=== PATIENT | male | born 1940 | race Caucasian/White ===

== ENCOUNTER 2019-11-06 21:38 | Observation (INO) | payer MEDICARE ==
[2019-11-06 21:51] LABS: HEMATOCRIT 35.7 % (37.9-51.0); HEMOGLOBIN 11.9 g/dL (13.5-17.0); MEAN CORPUSCULAR HEMOGLOBIN 29.9 pg (27.0-33.4); MEAN CORPUSCULAR HGB CONC 33.3 g/dL (32.0-36.0); MEAN CORPUSCULAR VOLUME 90 fl (80-97); PLATELET COUNT 117 10^3/uL (150-450); RED BLOOD COUNT 3.98 10^6/uL (4.35-5.55); RED CELL DISTRIBUTION WIDTH 13.8 % (11.5-14.0); WHITE BLOOD COUNT 10.5 10^3/uL (4.0-10.5)
[2019-11-06 21:53] LABS: INTERNATIONAL RATION (INR) 1.07; PROTHROMBIN TIME 13.9 SEC (11.4-15.4)
[2019-11-06 21:54] LABS: PARTIAL THROMBOPLASTIN TIME 27.8 SEC (23.5-35.8)
[2019-11-06 22:06] LABS: ALBUMIN 4.2 g/dL (3.5-5.0); ALKALINE PHOSPHATASE 67 U/L (38-126); ANION GAP 13 (5-19); ASPARTATE AMINO TRANSFERASE 25 U/L (17-59); BILIRUBIN,DIRECT 0.2 mg/dL (0.0-0.4); BILIRUBIN,TOTAL 0.6 mg/dL (0.2-1.3); BLOOD UREA NITROGEN 18 mg/dL (7-20); CALCIUM 9.3 mg/dL (8.4-10.2); CARBON DIOXIDE 21 mmol/L (22-30); CHLORIDE 101 mmol/L (98-107); CREATINE KINASE 254 U/L (55-170); GLUCOSE 194 mg/dL (75-110); POTASSIUM 4.4 mmol/L (3.6-5.0); TOTAL PROTEIN 7.2 g/dL (6.3-8.2)
--- NOTE | 2019-11-06 22:07 | RADIOLOGY REPORT (SQ) ---
EXAM DESCRIPTION: CT HEAD WITHOUT IV CONTRAST COMPLETED DATE/TME: 11/06/2019 21:40 CLINICAL HISTORY: 79 years, Male, s/s stroke EXAM DESCRIPTION: CLINICAL HISTORY: s/s stroke COMPARISON: None Available TECHNIQUE: Contiguous axial CT images of the head were obtained. Coronal and sagittal reconstructions were created from the axial data. This exam was performed according to our departmental dose-optimization program, which includes automated exposure control, adjustment of the mA and/or kV according to patient size and/or use of iterative reconstruction technique. FINDINGS: Motion limits detail. There is no evidence of acute mass, mass effect, midline shift or hemorrhage. The ventricles and extra-axial CSF spaces are unremarkable. The brain parenchyma appears normal for the patient's age. No acute abnormalities of the bones is seen. IMPRESSION: No acute intracranial abnormality.
[2019-11-06 22:12] LABS: ABSOLUTE MONOCYTES # (MANUAL) 0.5 10^3/uL (0.1-1.4); BASOPHILS % (MANUAL) 0 % (0-2); EOSINOPHILS % (MANUAL) 0 % (0-6); LYMPHOCYTES % (MANUAL) 0 % (13-45); MONOCYTES % (MANUAL) 5 % (3-13); PLATELET COMMENT DECREASED; RBC MORPHOLOGY COMMENT NORMO-CYTIC/CHROMIC; SEGMENTED NEUTROPHILS % (MAN) 95 % (42-78); TOTAL CELLS COUNTED 100
[2019-11-06 22:19] LABS: CREATINE KINASE MB 4.14 ng/mL (<4.55); TROPONIN I < 0.012 ng/mL
--- NOTE | 2019-11-06 22:26 | RADIOLOGY REPORT (SQ) ---
EXAM DESCRIPTION: XR CHEST 1 VIEW COMPLETED DATE/TME: 11/06/2019 21:40 CLINICAL HISTORY: 79 years, Male, s/s stroke COMPARISON: None. NUMBER OF VIEWS: 1 TECHNIQUE: Portable chest LIMITATIONS: None. FINDINGS: Heart size is normal. Atheromatous change thoracic aorta. Osteopenia. Lungs clear. No pneumothorax IMPRESSION: No acute cardiopulmonary process copyright 2010 [employer]- All Rights Reserved
--- NOTE | 2019-11-06 22:52 | ER Document Report ---
ED General - General Stated Complaint: POSSIBLE STROKE Time Seen by Provider: 11/06/19 22:45 Primary Care Provider: BILLY SALVADOR MD [Primary Care Provider] - Follow up as needed - HPI Notes: Mr. Joy is a 79-year-old male presenting via EMS seen as a code stroke alert. Last known well time was 1630 hrs. Patient has a history of moderate dementia and has had a previous episode of urinary tract infection. Family members note that they last saw him at around 630 and he seem to be at his usual baseline then. EMS was called just prior to arrival and it was reported that patient was not speaking and seemed to have generalized weakness. No focal weakness was observed. Patient was transported here became conversant during transport. They documented a blood sugar of 145 by fingerstick prior to arrival here. The patient is quiet and I am not getting a lot of history from him here although he is oriented to place person and day. His responses are very slow. Family members have arrived and tell me that this man received a flu immunization this season. They indicate that at baseline he walks independently and cares for himself for the most part. - Related Data Allergies/Adverse Reactions: No Known Allergies Allergy (Verified 11/06/19 22:56) Past Medical History - General Information source: Patient, Relative, Emergency Med Personnel - Social History Smoking Status: Never Smoker Frequency of alcohol use: None Drug Abuse: None Lives with: Family Family History: Reviewed & Not Pertinent - Past Medical History Cardiac Medical History: Denies: Hx Heart Attack, Hx Hypertension Pulmonary Medical History: Denies: Hx Asthma Neurological Medical History: Denies: Hx Cerebrovascular Accident, Hx Seizures GI Medical History: Denies: Hx Hepatitis, Hx Hiatal Hernia, Hx Ulcer Psychiatric Medical History: Reports: Hx Dementia Infectious Medical History: Denies: Hx Hepatitis Past Surgical History: Denies: Hx Open Heart Surgery, Hx Pacemaker Review of Systems - Review of Systems Notes: Constitutional: Negative for fever. HENT: Negative for sore throat. Eyes: Negative for visual changes. Cardiovascular: Negative for chest pain. Respiratory: Negative for shortness of breath. Gastrointestinal: Negative for abdominal pain, vomiting or diarrhea. Genitourinary: Negative for dysuria. Musculoskeletal: Negative for back pain. Skin: Negative for rash. Neurological: As per HPI. 10 point ROS negative except as marked above and in HPI. Physical Exam - Vital signs Vitals: Temp Pulse Resp BP Pulse Ox 102.3 F H 92 16 130/69 H 98 11/06/19 21:51 11/06/19 21:51 11/06/19 21:51 11/06/19 21:51 11/06/19 21:51 - Notes Notes: GENERAL: Well-developed well-nourished elderly male with generalized weakness and sleepy with slow responses. SKIN: Good turgor no rashes. HEAD: Normocephalic atraumatic. EYES: PERRLA. EOMI. Conjunctivae and sclerae clear. EARS: CANALS AND TMS CLEAR. NOSE: CLEAR. MOUTH: Moist mucosa. Good dentition. No stridor or edema. No drooling. NECK: Supple. No masses or thyromegaly. No adenopathy. Carotids 2+ without bruits. No JVD. BACK: Symmetrical without tenderness. CHEST: Respirations unlabored. Breath sounds clear and symmetrical. HEART: Regular rhythm. No murmur gallop or rub. ABDOMEN: Soft nontender without masses, organomegaly or rebound. Bowel sounds normally active. No bruits. GENITALIA: Deferred. EXTREMITIES: No edema. No calf tenderness. Cap refill less than 1.5 seconds. Dorsalis pedis and posterior tibial pulses 3+ and symmetrical. NEUROLOGICAL: GCS 15 but slow to respond. Fluent speech. Cranial nerves II through XII intact. Sensation is grossly intact. He performs finger-nose testing without difficulty. No drift on upper extremity motor testing. He has some difficulty keeping both legs up but is able to raise each independently. There is no lateralized difference in muscular strength in lower extremities. PSYCHIATRIC: Appropriate affect. Course - Re-evaluation Re-evalutation: 11/06/19 23:16 On initial evaluation this man did not have any lateralization to suggest an acute stroke. He has been found to have fever and elevation of his lactate level although source of infection is unclear. He appears to be septic. His blood pressure is good at this point. I drawn blood cultures. We are giving him some fluids ongoing empirically cover him with Zosyn and vancomycin. I requested a CT abdomen/pelvis with contrast to try to identify source of sepsis. After we reviewed the CT I will speak with hospitalist about admission. - Vital Signs Vital signs: Temp Pulse Resp BP Pulse Ox 98.1 F 92 17 129/67 H 99 11/07/19 04:21 11/06/19 21:51 11/07/19 04:01 11/07/19 04:01 11/07/19 04:01 - Laboratory Result Diagrams: 11/06/19 23:10 11/06/19 23:10 Laboratory results interpreted by me: 11/06/19 11/06/19 11/06/19 21:40 21:40 22:04 WBC RBC 3.98 L Hgb 11.9 L Hct 35.7 L Plt Count 117 L Seg Neuts % (Manual) 95 H Lymphocytes % (Manual) 0 L Abs Neuts (Manual) 10.0 H Abs Lymphs (Manual) 0.0 L Sodium 134.5 L Carbon Dioxide 21 L Glucose 194 H POC Glucose 186 H Lactic Acid Creatine Kinase 254 H Urine Protein Urine Glucose (UA) Urine Blood 11/06/19 11/06/19 11/06/19 22:17 22:44 23:10 WBC 11.3 H RBC 3.91 L Hgb 11.7 L Hct 34.8 L Plt Count 111 L Seg Neuts % (Manual) 85 H Lymphocytes % (Manual) 5 L Abs Neuts (Manual) 9.6 H Abs Lymphs (Manual) Sodium Carbon Dioxide Glucose POC Glucose Lactic Acid 3.3 H Creatine Kinase Urine Protein 30 H Urine Glucose (UA) 50 H Urine Blood MODERATE H 11/06/19 23:10 WBC RBC Hgb Hct Plt Count Seg Neuts % (Manual) Lymphocytes % (Manual) Abs Neuts (Manual) Abs Lymphs (Manual) Sodium 134.8 L Carbon Dioxide Glucose 124 H POC Glucose Lactic Acid Creatine Kinase Urine Protein Urine Glucose (UA) Urine Blood Discharge - Discharge Clinical Impression: AMS Fever Qualifiers: Fever type: unspecified Qualified Code(s): R50.9 - Fever, unspecified Sepsis Qualifiers: Sepsis type: sepsis due to unspecified organism Sepsis acute organ dysfunction status: with acute organ dysfunction Severe sepsis acute organ dysfunction type: encephalopathy Severe sepsis shock status: without septic shock Qualified Code(s): A41.9 - Sepsis, unspecified organism; R65.20 - Severe sepsis without septic shock; G93.40 - Encephalopathy, unspecified Condition: Fair Disposition: ADMITTED INPATIENT Admitting Provider: Demetrice (Hospitalist) Unit Admitted: Medical Floor Referrals: BILLY SALVADOR MD [Primary Care Provider] - Follow up as needed
[2019-11-06] MEDS ORDERED: ACETAMINOPHEN 325 MG TABLET PO ONE (22:54)
[2019-11-06 22:59] LABS: APPEARANCE,URINE SLIGHTLY-CLOUDY; BILIRUBIN,URINE NEGATIVE (NEGATIVE); COLOR,URINE YELLOW; GLUCOSE, URINE 50 mg/dL (NEGATIVE); KETONES,URINE NEGATIVE (NEGATIVE); LEUKOCYTE ESTERASE,URINE NEGATIVE (NEGATIVE); NITRITE,URINE NEGATIVE (NEGATIVE); PROTEIN,URINE 30 mg/dL (NEGATIVE); URINE SPECIFIC GRAVITY 1.017; UROBILINOGEN,URINE NEGATIVE mg/dL (<2.0)
[2019-11-06] MEDS ORDERED: PIPERACILLIN/TAZOBACTAM 3.375 GM VIAL IV ONE (23:09)
[2019-11-06] MEDS ORDERED: VANCOMYCIN HCL INJ 1000 MG VIAL IV ONE (23:09)
[2019-11-06] MEDS ORDERED: NORMAL SALINE 1000 ML 1,000 ML IV ONE (23:15)
[2019-11-06 23:20] LABS: A TYPE INFLUENZA AG NEGATIVE (NEGATIVE); B INFLUENZA AG NEGATIVE (NEGATIVE)
[2019-11-06 23:24] LABS: HEMATOCRIT 34.8 % (37.9-51.0); HEMOGLOBIN 11.7 g/dL (13.5-17.0); MEAN CORPUSCULAR HGB CONC 33.8 g/dL (32.0-36.0); MEAN CORPUSCULAR VOLUME 89 fl (80-97); PLATELET COUNT 111 10^3/uL (150-450); RED BLOOD COUNT 3.91 10^6/uL (4.35-5.55); RED CELL DISTRIBUTION WIDTH 13.9 % (11.5-14.0); WHITE BLOOD COUNT 11.3 10^3/uL (4.0-10.5)
[2019-11-06 23:42] LABS: ALKALINE PHOSPHATASE 70 U/L (38-126); ANION GAP 7 (5-19); ASPARTATE AMINO TRANSFERASE 33 U/L (17-59); BILIRUBIN,TOTAL 0.5 mg/dL (0.2-1.3); BLOOD UREA NITROGEN 18 mg/dL (7-20); CARBON DIOXIDE 26 mmol/L (22-30); CHLORIDE 102 mmol/L (98-107); GLUCOSE 124 mg/dL (75-110); POTASSIUM 4.2 mmol/L (3.6-5.0); TOTAL PROTEIN 6.9 g/dL (6.3-8.2)
[2019-11-06 23:44] LABS: ABSOLUTE LYMPHOCYTES# (MANUAL) 0.6 10^3/uL (0.5-4.7); ABSOLUTE MONOCYTES # (MANUAL) 1.1 10^3/uL (0.1-1.4); BASOPHILS % (MANUAL) 0 % (0-2); EOSINOPHILS % (MANUAL) 0 % (0-6); LYMPHOCYTES % (MANUAL) 5 % (13-45); MONOCYTES % (MANUAL) 10 % (3-13); SEGMENTED NEUTROPHILS % (MAN) 85 % (42-78); TOTAL CELLS COUNTED 100
[2019-11-06 23:45] LABS: PLATELET COMMENT DECREASED; RBC MORPHOLOGY COMMENT NORMO-CYTIC/CHROMIC
--- NOTE | 2019-11-07 02:31 | RADIOLOGY REPORT (SQ) ---
CLINICAL HISTORY: sepsis source undetermined. CREAT 0.73 COMPARISON: None. TECHNIQUE: CT ABDOMEN PELVIS WITH IV CONTRAST on 11/06/2019 11:08 PM [facility] This exam was performed according to our departmental dose-optimization program, which includes automated exposure control, adjustment of the mA and/or kV according to patient size and/or use of iterative reconstruction technique. FINDINGS: There is bibasilar atelectasis. Abdomen: The liver is normal in appearance. There is no biliary dilatation. Gallbladder is normal in appearance. The pancreas and spleen are normal in appearance. Adrenal glands are normal. There is a small lower pole left renal cyst. There are heavy calcifications of both renal arteries. Abdominal aorta is normal in course and caliber without aneurysm. There is no free air. There is no retroperitoneal adenopathy. Pelvis: There is severe diverticulosis of the distal colon. Urinary bladder is unremarkable. There is no free fluid. Appendix is normal. Skeleton: There are no acute osseous findings. No suspicious bony lesions. IMPRESSION: No definite acute inflammatory process.
[2019-11-07] MEDS ORDERED: MAGNESIUM HYDROXIDE SUSP 30 ML UDCUP PO PRN (05:33)
[2019-11-07] MEDS ORDERED: IBUPROFEN 800 MG TABLET PO PRN (05:33)
[2019-11-07] MEDS ORDERED: MAG HYDROX/AL HYDROX/SIMETH SUSP 30 ML UDCUP PO PRN (05:33)
[2019-11-07] MEDS ORDERED: MELATONIN 5 MG TABLET PO PRN (05:33)
[2019-11-07] MEDS ORDERED: LORAZEPAM INJ 2 MG/1 ML VIAL IV PRN (05:33)
[2019-11-07] MEDS ORDERED: ACETAMINOPHEN 325 MG TABLET PO PRN (05:33)
[2019-11-07] MEDS ORDERED: PIPERACILLIN/TAZOBACTAM 3.375 GM VIAL IV PRN (05:44)
[2019-11-07] MEDS ORDERED: PIPERACILLIN/TAZOBACTAM 3.375 GM VIAL IV SCH (05:45)
[2019-11-07] MEDS ORDERED: PIPERACILLIN/TAZOBACTAM 3.375 GM VIAL IV ONE (06:17)
[2019-11-07] MEDS: HEPARIN SOD (PORCINE) 5,000 UNIT/ML 1 ML VIAL SUBCUT SCH ×3 (06:28→21:55)
[2019-11-07] MEDS: PIPERACILLIN SODIUM/TAZOBACTAM 3.375 GM in NORMAL SALINE 100 ML IV SCH ×2 (06:28→13:30)
--- NOTE | 2019-11-07 07:46 | EKG REPORT ---
SEVERITY:- NORMAL ECG - SINUS RHYTHM : Confirmed by: Freeman Patterson MD 07-Nov-2019 07:45:39
[2019-11-07] MEDS: DEXTROSE 5%-LACTATED RINGERS 1,000 ML IV PRN ×2 (08:20→20:25)
[2019-11-07] MEDS: DOCUSATE SODIUM 100 MG CAPSULE PO SCH ×2 (09:34→17:39)
[2019-11-07] MEDS ORDERED: VANCOMYCIN HCL INJ 1000 MG VIAL IV SCH (10:00)
[2019-11-07] MEDS ORDERED: VANCOMYCIN HCL 750 MG in DEXTROSE 5%-WATER 250 ML IV SCH (11:30)
--- NOTE | 2019-11-07 12:52 | PDOC H&P ---
History of Present Illness Admission Date/PCP: 11/07/2019 05:10 BILLY SALVADOR MD Patient complains of: Altered mental status History of Present Illness: LESLY JOY is a 79 year old male who presented to the emergency room with acutely altered mental status. Patient cannot contribute to the his care due to his acutely worsened dementia. Patient's family indicate that he has mild dementia and was last at his normal status in the afternoon of 11/06/2019. By that evening he was noted to have generalized weakness and be poorly responsive to his family members. EMS noted that he became conversant though confused du ring the transport to the ER. In the emergency room he was found to have an initial fever of 102 F with an initial lactic acid of 3.5 and a white blood count of 11,300. He was treated with Tylenol and IV fluid and his lactic acid dropped to 1.2 his temperature decreased to 98.1 and he became more conversant though his family feels that he is still not at his baseline. He was started on IV antibiotics of Zosyn and vancomycin in the emergency room on an empiric basis. He was subsequently admitted to the hospital for further evaluation and treatment. Past Medical History Past Medical History: Patient has dementia which has been worsened by his acute altered mental status. He is unable to provide information to his medical history therefore his past medical history, past surgical history, social history and family history are obtained from the best available reliable source at the time of my evaluation. Cardiac Medical History: Denies: Coronary Artery Disease, Myocardial Infarction, Hypertension Pulmonary Medical History: Denies: Asthma, Chronic Obstructive Pulmonary Disease (COPD) EENT Medical History: Reports: Cataracts Denies: Ears - Hearing aids Neurological Medical History: Denies: Hemorrhagic CVA, Ischemic CVA, Seizures Endocrine Medical History: Denies: Diabetes Mellitus Type 1, Diabetes Mellitus Type 2, Hyperthyroidism, Hypothyroidism Renal/ Medical History: Denies: Chronic Kidney Disease, Nephrolithiasis Malignancy Medical History: Reports: None GI Medical History: Denies: Cirrhosis, Crohn's Disease, Gastroesophageal Reflux Disease, Hepatitis, Hiatal Hernia, Peptic Ulcer Disease, Ulcerative Colitis Musculoskeltal Medical History: Denies: Arthritis, Gout Skin Medical History: Denies: Eczema, Psoriasis Psychiatric Medical History: Reports: Dementia Denies: Alcohol Dependency, Substance Abuse, Tobacco Dependency Traumatic Medical History: Reports: None Hematology: Denies: Anemia, Bleeding Tendencies Infectious Medical History: Reports: None Past Surgical History Past Surgical History: Patient has dementia which has been worsened by his acute altered mental status. He is unable to provide information to his medical history therefore his past medical history, past surgical history, social history and family history are obtained from the best available reliable source at the time of my evaluation. Past Surgical History: Reports: Herniorrhaphy, Other - Bilateral cataract tomas rgery, anal fissure surgery Social History Information Source: Relative, [facility] Records Lives with: Family Smoking Status: Former Smoker Electronic Cigarette use?: No Frequency of Alcohol Use: None Hx Recreational Drug Use: No Drugs: None Hx Prescription Drug Abuse: No Past Social History Note: Patient has dementia which has been worsened by his acute altered mental status. He is unable to provide information to his medical history therefore his past medical history, past surgical history, social history and family history are obtained from the best available reliable source at the time of my evaluation. - Advance Directive Resuscitation Status: Full Code Surrogate healthcare decision maker:: Martell Joy Family History Family History: Other - Dementia. denies: CAD, DM, Hypertension, Malignancy Family History: Patient has dementia which has been worsened by his acute altered mental status. He is unable to provide information to his medical history therefore his past medical history, past surgical history, social history and family history are obtained from the best available reliable source at the time of my evaluation. Parental Family History Reviewed: Yes Children Family History Reviewed: No Sibling(s) Family History Reviewed.: Yes Medication/Allergy Home Medications: Cyanocobalamin (Vitamin B-12) [Vitamin B-12] 1,000 mcg PO DAILY 11/06/19 Folic Acid 1 mg PO DAILY 11/06/19 Memantine HCl 5 mg PO DAILY 11/06/19 Risperidone [Risperdal 1 mg Tablet] 1 mg PO Q12 11/06/19 Allergies/Adverse Reactions: No Known Allergies Allergy (Verified 11/06/19 22:56) Review of Systems ROS unobtainable: Due to mental status Physical Exam Vital Signs: Temp Pulse Resp BP Pulse Ox 98.1 F 92 17 129/67 H 99 11/07/19 04:21 11/06/19 21:51 11/07/19 04:01 11/07/19 04:01 11/07/19 04:01 Intake & Output 11/05/19 11/06/19 11/07/19 23:59 23:59 23:59 Intake Total 1000 Balance 1000 Weight 71.7 kg General appearance: PRESENT: no acute distress, cooperative Head exam: PRESENT: atraumatic, normocephalic Eye exam: PRESENT: conjunctiva pink. ABSENT: conjunctival injection, scleral icterus Ear exam: PRESENT: normal external ear exam. ABSENT: bleeding, drainage Mouth exam: PRESENT: dry mucosa, neck supple Neck exam: ABSENT: thyromegaly, tracheal deviation Respiratory exam: PRESENT: clear to auscultation maco, symmetrical, unlabored Cardiovascular exam: PRESENT: RRR. ABSENT: clicks, gallop, rubs Pulses: PRESENT: normal radial pulses, normal dorsalis pedis pul Vascular exam: PRESENT: normal capillary refill. ABSENT: pallor GI/Abdominal exam: PRESENT: normal bowel sounds, soft Rectal exam: PRESENT: deferred Extremities exam: ABSENT: joint swelling, pedal edema Musculoskeletal exam: ABSENT: deformity, dislocation Neurological exam: PRESENT: alert, oriented to person, CN II-XII grossly intact, other - Confused and responds slowly. ABSENT: motor sensory deficit Psychiatric exam: PRESENT: appropriate affect, normal mood, other - Confused Skin exam: PRESENT: dry, intact, warm. ABSENT: jaundice, rash, urticaria Results Laboratory Results: 11/06/19 23:10 11/06/19 23:10 11/06/19 11/06/19 11/06/19 21:40 21:40 22:17 WBC 10.5 RBC 3.98 L Hgb 11.9 L Hct 35.7 L MCV 90 MCH 29.9 MCHC 33.3 RDW 13.8 Plt Count 117 L Seg Neutrophils % Not Reportable Sodium 134.5 L Potassium 4.4 Chloride 101 Carbon Dioxide 21 L Anion Gap 13 BUN 18 Creatinine 1.00 Est GFR ( Amer) > 60 Glucose 194 H Lactic Acid 3.3 H Calcium 9.3 Total Bilirubin 0.6 AST 25 Alkaline Phosphatase 67 Total Protein 7.2 Albumin 4.2 Urine Color Urine Appearance Urine pH Ur Specific [place] Urine Protein Urine Glucose (UA) Urine Ketones Urine Blood Urine Nitrite Ur Leukocyte Esterase Urine WBC (Auto) Urine RBC (Auto) 11/06/19 11/06/19 11/06/19 22:44 23:10 23:10 WBC 11.3 H RBC 3.91 L Hgb 11.7 L Hct 34.8 L MCV 89 MCH 30.0 MCHC 33.8 RDW 13.9 Plt Count 111 L Seg Neutrophils % Not Reportable Sodium 134.8 L Potassium 4.2 Chloride 102 Carbon Dioxide 26 Anion Gap 7 BUN 18 Creatinine 0.97 Est GFR ( Amer) > 60 Glucose 124 H Lactic Acid Calcium 9.0 Total Bilirubin 0.5 AST 33 Alkaline Phosphatase 70 Total Protein 6.9 Albumin 4.0 Urine Color YELLOW Urine Appearance SLIGHTLY-CLOUDY Urine pH 5.0 Ur Specific [place] 1.017 Urine Protein 30 H Urine Glucose (UA) 50 H Urine Ketones NEGATIVE Urine Blood MODERATE H Urine Nitrite NEGATIVE Ur Leukocyte Esterase NEGATIVE Urine WBC (Auto) 3 Urine RBC (Auto) 2 11/07/19 04:02 WBC RBC Hgb Hct MCV MCH MCHC RDW Plt Count Seg Neutrophils % Sodium Potassium Chloride Carbon Dioxide Anion Gap BUN Creatinine Est GFR ( Amer) Glucose Lactic Acid 1.2 Calcium Total Bilirubin AST Alkaline Phosphatase Total Protein Albumin Urine Color Urine Appearance Urine pH Ur Specific [place] Urine Protein Urine Glucose (UA) Urine Ketones Urine Blood Urine Nitrite Ur Leukocyte Esterase Urine WBC (Auto) Urine RBC (Auto) 11/06/19 11/06/19 21:40 21:40 Creatine Kinase 254 H CK-MB (CK-2) 4.14 Troponin I < 0.012 Impressions: Chest X-Ray 11/06/19 21:40 IMPRESSION: No acute cardiopulmonary process copyright 2011 [employer]- All Rights Reserved Head CT 11/06/19 21:40 IMPRESSION: No acute intracranial abnormality. Abdomen/Pelvis CT 11/06/19 23:08 IMPRESSION: No definite acute inflammatory process. Assessment and Plan - Diagnosis (1) Acute encephalopathy Is this a current diagnosis for this admission?: Yes (2) SIRS (systemic inflammatory response syndrome) Is this a current diagnosis for this admission?: Yes (3) Elevated lactic acid level Is this a current diagnosis for this admission?: Yes (4) Febrile illness, acute Is this a current diagnosis for this admission?: Yes (5) Chronic dementia without behavioral disturbance Is this a current diagnosis for this admission?: Yes - Plan Summary Summary: Patient is admitted to the medical floor where he will receive routine supportive and symptomatic cares. He will be treated with IV fluids and IV antibiotics utilizing vancomycin and Zosyn as they were initiated in the ER. He received Ativan 1 mg IV every 4 hours as needed for anxiety. He will receive Thorazine 25 mg IV every 8 hours as needed agitation or restlessness. CBCs, metabolic profiles, serial lactic acid determinations and magnesium levels will be obtained on a regular basis as needed. - Time Time Spent with patient: 15-24 minutes Medications reviewed and adjusted accordingly: Yes Anticipated discharge: Home with Homehealth - Inpatient Certification Based on my medical assessment, after consideration of the patient's comorbidities, presenting symptoms, or acuity I expect that the services needed warrant INPATIENT care.: Yes I certify that my determination is in accordance with my understanding of [facility]'s requirements for reasonable and necessary INPATIENT services [42 CFR 412.3e].: Yes Medical Necessity: Need Close Monitoring Due to Risk of Patient Decompensation, Need For IV Fluids, Need for Neurological Checks, Need for IV Antibiotics, Risk of Complication if Not Cared For in Hospital
[2019-11-07] MEDS: CHLORPROMAZINE HCL INJ 25 MG/1 ML AMPULE IV PRN (16:50)
[2019-11-07] MEDS: RISPERIDONE 1 MG TABLET PO SCH (21:55)
[2019-11-07] MEDS: CITALOPRAM HYDROBROMIDE 20 MG TABLET PO SCH (21:56)
[2019-11-07] MEDS ORDERED: (PENDING PHARMACY ID) (Citalopram Hydrobromide [Celexa 10 Mg Tablet] 10 MG) PO SCH (22:00)
[2019-11-08] MEDS: CHLORPROMAZINE HCL INJ 25 MG/1 ML AMPULE IV PRN ×2 (03:35→19:00)
[2019-11-08] MEDS: HEPARIN SOD (PORCINE) 5,000 UNIT/ML 1 ML VIAL SUBCUT SCH (06:11)
[2019-11-08 06:56] LABS: VENOUS BLOOD BASE EXCESS 0.6 mmol/L; VENOUS BLOOD HCO3 27.6 mmol/L (20-32); VENOUS BLOOD PCO2 53.4 mmHg (35-63); VENOUS BLOOD PH 7.33 (7.30-7.42)
[2019-11-08 06:59] LABS: HEMATOCRIT 34.1 % (37.9-51.0); HEMOGLOBIN 11.5 g/dL (13.5-17.0); MEAN CORPUSCULAR HEMOGLOBIN 30.2 pg (27.0-33.4); MEAN CORPUSCULAR HGB CONC 33.8 g/dL (32.0-36.0); MEAN CORPUSCULAR VOLUME 89 fl (80-97); RED BLOOD COUNT 3.82 10^6/uL (4.35-5.55); RED CELL DISTRIBUTION WIDTH 14.1 % (11.5-14.0)
[2019-11-08 07:21] LABS: PLATELET COUNT 97 10^3/uL (150-450)
[2019-11-08 07:23] LABS: ANION GAP 6 (5-19); BLOOD UREA NITROGEN 12 mg/dL (7-20); CALCIUM 8.8 mg/dL (8.4-10.2); CARBON DIOXIDE 28 mmol/L (22-30); CHLORIDE 107 mmol/L (98-107); GLUCOSE 114 mg/dL (75-110); POTASSIUM 4.1 mmol/L (3.6-5.0)
[2019-11-08] MEDS: MEMANTINE HCL 10 MG TABLET PO SCH (09:56)
[2019-11-08] MEDS: FOLIC ACID 1 MG TABLET PO SCH (09:57)
[2019-11-08] MEDS: RISPERIDONE 1 MG TABLET PO SCH ×2 (09:57→22:00)
[2019-11-08] MEDS: DOCUSATE SODIUM 100 MG CAPSULE PO SCH ×2 (09:57→18:54)
[2019-11-08] MEDS ORDERED: MEMANTINE HCL 5 MG PO SCH (10:00)
[2019-11-08 11:11] LABS: VANCOMYCIN,TROUGH < 5.0 ug/mL (5.0-20.0)
--- NOTE | 2019-11-08 12:00 | PDOC PROGRESS REPORT ---
Subjective Progress Note for:: 11/08/19 Subjective:: Patient was seen and examined. Daughter is at bedside. He is back to his baseline apparently. Has not had fever since admission. White count is normal. We stopped antibiotics yesterday. Reason For Visit: AMS,ELEVATED LACTIC ACID,FEBRILE ILLNESS Physical Exam Vital Signs: Temp Pulse Resp BP Pulse Ox 98.9 F 62 14 142/65 H 98 11/08/19 00:00 11/08/19 00:00 11/08/19 00:00 11/08/19 00:00 11/08/19 00:00 Intake & Output 11/07/19 11/08/19 11/09/19 06:59 06:59 06:59 Intake Total 1100 1350 Balance 1100 1350 Weight 158 lb 1.143 oz 161 lb 2.526 oz Exam: Patient is no acute distress Patient has chronic dementia No anxiety or depression Head: atraumatic normocephalic Pupils: are equal reactive Neck: is supple and trachea is central no lymphadenopathy No pharyngeal erythema or exudates Heart: Regular rate and rhythm, no peripheral edema Lungs: clear to auscul, no respiratory distress Abdomen: nontender nondistended Neurological exam: unremarkable Musculoskeletal: No joint swelling or effusion chronic lower back pain and tenderness Chronically demented Results Laboratory Results: 11/08/19 06:16 11/08/19 06:16 11/07/19 11/08/19 11/08/19 13:58 06:16 06:16 WBC 5.0 RBC 3.82 L Hgb 11.5 L Hct 34.1 L MCV 89 MCH 30.2 MCHC 33.8 RDW 14.1 H Plt Count 97 L VBG pH VBG pCO2 VBG HCO3 VBG Base Excess Sodium 141.0 Potassium 4.1 Chloride 107 Carbon Dioxide 28 Anion Gap 6 BUN 12 Creatinine 0.82 Est GFR ( Amer) > 60 Glucose 114 H Lactic Acid 1.5 Calcium 8.8 Magnesium 2.0 TSH 11/08/19 11/08/19 06:16 06:16 WBC RBC Hgb Hct MCV MCH MCHC RDW Plt Count VBG pH 7.33 VBG pCO2 53.4 VBG HCO3 27.6 VBG Base Excess 0.6 Sodium Potassium Chloride Carbon Dioxide Anion Gap BUN Creatinine Est GFR ( Amer) Glucose Lactic Acid Calcium Magnesium TSH 4.84 H 11/06/19 11/06/19 21:40 21:40 Creatine Kinase 254 H CK-MB (CK-2) 4.14 Troponin I < 0.012 Impressions: Chest X-Ray 11/06/19 21:40 IMPRESSION: No acute cardiopulmonary process copyright 2011 [employer]- All Rights Reserved Head CT 11/06/19 21:40 IMPRESSION: No acute intracranial abnormality. Abdomen/Pelvis CT 11/06/19 23:08 IMPRESSION: No definite acute inflammatory process. Assessment and Plan - Diagnosis (1) Acute encephalopathy Is this a current diagnosis for this admission?: Yes Plan: Has resolved. Patient is back to his baseline. (2) Chronic dementia without behavioral disturbance Is this a current diagnosis for this admission?: Yes Plan: Continue Namenda and risperidone (3) Elevated lactic acid level Is this a current diagnosis for this admission?: Yes Plan: Resolved with hydration (4) Febrile illness, acute Is this a current diagnosis for this admission?: Yes Plan: Has been afebrile since admission. Antibiotics stopped 11/07/2019. - Plan Summary Summary: Family is asking for [facility] placement. cannot care for him anymore.
[2019-11-08] MEDS ORDERED: TUBERCULIN,PURIF.PROT.DERIV. 5 TU/0.1 ML TEST 1 ML VIAL ID ONE (12:30)
[2019-11-08] MEDS: CITALOPRAM HYDROBROMIDE 20 MG TABLET PO SCH (22:00)
[2019-11-09 07:04] LABS: HEMATOCRIT 31.6 % (37.9-51.0); HEMOGLOBIN 10.8 g/dL (13.5-17.0); MEAN CORPUSCULAR HEMOGLOBIN 30.5 pg (27.0-33.4); MEAN CORPUSCULAR HGB CONC 34.1 g/dL (32.0-36.0); MEAN CORPUSCULAR VOLUME 90 fl (80-97); PLATELET COUNT 105 10^3/uL (150-450); RED BLOOD COUNT 3.53 10^6/uL (4.35-5.55); WHITE BLOOD COUNT 5.2 10^3/uL (4.0-10.5)
[2019-11-09 07:27] LABS: ANION GAP 6 (5-19); BLOOD UREA NITROGEN 14 mg/dL (7-20); CALCIUM 8.7 mg/dL (8.4-10.2); CARBON DIOXIDE 28 mmol/L (22-30); CHLORIDE 104 mmol/L (98-107); GLUCOSE 113 mg/dL (75-110); POTASSIUM 4.2 mmol/L (3.6-5.0)
[2019-11-09 09:20] VITALS: BP 133/57
--- NOTE | 2019-11-09 11:00 | PDOC DISCHARGE SUMMARY ---
Impression - Admit/DC Date/PCP Admission Date/Primary Care Provider: 11/07/19 05:15 BILLY SALVADOR MD Discharge Date: 11/09/19 - Discharge Diagnosis (1) Acute encephalopathy Is this a current diagnosis for this admission?: Yes (2) Chronic dementia without behavioral disturbance Is this a current diagnosis for this admission?: Yes (3) Elevated lactic acid level Is this a current diagnosis for this admission?: Yes (4) Febrile illness, acute Is this a current diagnosis for this admission?: Yes - Assessment Summary: Family is asking for group home placement. cannot care for him anymore. - Additional Information Resuscitation Status: Full Code Referrals: BILLY SALVADOR MD [Primary Care Provider] - Follow up as needed Home Medications: Folic Acid 1 mg PO DAILY 11/06/19 Memantine HCl 5 mg PO DAILY 11/06/19 Risperidone [Risperdal 1 mg Tablet] 1 mg PO Q12 11/06/19 Citalopram Hydrobromide [Celexa 10 mg Tablet] 10 mg PO QHS 11/07/19 History of Present Illiness History of Present Illness: LESLY GUNTER is a 79 year old male who presented to the emergency room with acutely altered mental status. Patient cannot contribute to the his care due to his acutely worsened dementia. Patient's family indicate that he has mild dementia and was last at his normal status in the afternoon of 11/06/2019. By that evening he was noted to have generalized weakness and be poorly responsive to his family members. EMS noted that he became conversant though confused during the transport to the ER. In the emergency room he was found to have an initial fever of 102 F with an initial lactic acid of 3.5 and a white blood count of 11,300. He was treated with Tylenol and IV fluid and his lactic acid dropped to 1.2 his temperature decreased to 98.1 and he became more conversant though his family feels that he is still not at his baseline. He was started on IV antibiotics of Zosyn and vancomycin in the emergency room on an empiric basis. He was subsequently admitted to the hospital for further evaluation and treatment. Hospital Course Hospital Course: (1) Acute encephalopathy Has resolved. Patient is back to his baseline. (2) Chronic dementia without behavioral disturbance Continue Namenda and risperidone (3) Elevated lactic acid level resolved with hydration (4) Febrile illness, acute Has been afebrile since admission. Antibiotics stopped 11/07/2019. Stable off antibiotics. Patient is stable for discharge. Discussed with daughter and the . They are requesting home care and we consulted case management. Physical Exam Vital Signs: Temp Pulse Resp BP Pulse Ox 97.8 F 65 16 133/57 H 99 11/09/19 08:00 11/09/19 08:00 11/09/19 08:00 11/09/19 08:00 11/09/19 08:00 Intake & Output 11/08/19 11/09/19 11/10/19 06:59 06:59 06:59 Intake Total 1350 814 Output Total 203 Balance 1350 611 Weight 161 lb 2.526 oz 161 lb 2.526 oz Exam: Patient is no acute distress Patient has chronic dementia No anxiety or depression Head: atraumatic normocephalic Pupils: are equal reactive Neck: is supple and trachea is central no lymphadenopathy No pharyngeal erythema or exudates Heart: Regular rate and rhythm, no peripheral edema Lungs: clear to auscul, no respiratory distress Abdomen: nontender nondistended Neurological exam: unremarkable Musculoskeletal: No joint swelling or effusion chronic lower back pain and tenderness Chronically demented Results Laboratory Results: WBC 5.2 10^3/uL (4.0-10.5) 11/09/19 06:32 RBC 3.53 10^6/uL (4.35-5.55) L 11/09/19 06:32 Hgb 10.8 g/dL (13.5-17.0) L 11/09/19 06:32 Hct 31.6 % (37.9-51.0) L 11/09/19 06:32 MCV 90 fl (80-97) 11/09/19 06:32 MCH 30.5 pg (27.0-33.4) 11/09/19 06:32 MCHC 34.1 g/dL (32.0-36.0) 11/09/19 06:32 RDW 14.0 % (11.5-14.0) 11/09/19 06:32 Plt Count 105 10^3/uL (150-450) L 11/09/19 06:32 Lymph % (Auto) Not Reportable 11/06/19 23:10 [place] % (Auto) Not Reportable 11/06/19 23:10 Eos % (Auto) Not Reportable 11/06/19 23:10 Baso % (Auto) Not Reportable 11/06/19 23:10 Absolute Neuts (auto) Not Reportable 11/06/19 23:10 Absolute Lymphs (auto) Not Reportable 11/06/19 23:10 Absolute Monos (auto) Not Reportable 11/06/19 23:10 Absolute Eos (auto) Not Reportable 11/06/19 23:10 Absolute Basos (auto) Not Reportable 11/06/19 23:10 Total Counted 100 11/06/19 23:10 Seg Neutrophils % Not Reportable 11/06/19 23:10 Seg Neuts % (Manual) 85 % (42-78) H 11/06/19 23:10 Lymphocytes % (Manual) 5 % (13-45) L 11/06/19 23:10 Monocytes % (Manual) 10 % (3-13) 11/06/19 23:10 Eosinophils % (Manual) 0 % (0-6) 11/06/19 23:10 Basophils % (Manual) 0 % (0-2) 11/06/19 23:10 Abs Neuts (Manual) 9.6 10^3/uL (1.7-8.2) H 11/06/19 23:10 Abs Lymphs (Manual) 0.6 10^3/uL (0.5-4.7) 11/06/19 23:10 Abs Monocytes (Manual) 1.1 10^3/uL (0.1-1.4) 11/06/19 23:10 Absolute Eos (Manual) 0.0 10^3/uL (0.0-0.6) 11/06/19 23:10 Abs Basophils (Manual) 0.0 10^3/uL (0.0-0.2) 11/06/19 23:10 Platelet Comment DECREASED 11/06/19 23:10 RBC Morph Comment NORMO-CYTIC/CHROMIC 11/06/19 23:10 PT 13.9 SEC (11.4-15.4) 11/06/19 21:40 INR 1.07 11/06/19 21:40 APTT 27.8 SEC (23.5-35.8) 11/06/19 21:40 VBG pH 7.33 (7.30-7.42) 11/08/19 06:16 VBG pCO2 53.4 mmHg (35-63) 11/08/19 06:16 VBG HCO3 27.6 mmol/L (20-32) 11/08/19 06:16 VBG Base Excess 0.6 mmol/L 11/08/19 06:16 Sodium 138.4 mmol/L (137-145) 11/09/19 06:32 Potassium 4.2 mmol/L (3.6-5.0) 11/09/19 06:32 Chloride 104 mmol/L (98-107) 11/09/19 06:32 Carbon Dioxide 28 mmol/L (22-30) 11/09/19 06:32 Anion Gap 6 (5-19) 11/09/19 06:32 BUN 14 mg/dL (7-20) 11/09/19 06:32 Creatinine 0.84 mg/dL (0.52-1.25) 11/09/19 06:32 Est GFR ( Amer) > 60 (>60) 11/09/19 06:32 Est GFR (MDRD) Non-Af > 60 (>60) 11/09/19 06:32 Glucose 113 mg/dL (75-110) H 11/09/19 06:32 POC Glucose 186 mg/dL (70-110) H 11/06/19 22:04 Lactic Acid 1.5 mmol/L (0.7-2.1) 11/07/19 13:58 Calcium 8.7 mg/dL (8.4-10.2) 11/09/19 06:32 Magnesium 2.0 mg/dL (1.6-2.3) 11/09/19 06:32 Total Bilirubin 0.5 mg/dL (0.2-1.3) 11/06/19 23:10 Direct Bilirubin 0.0 mg/dL (0.0-0.4) 11/06/19 23:10 Neonat Total Bilirubin Not Reportable 11/06/19 23:10 Neonat Direct Bilirubin Not Reportable 11/06/19 23:10 Neonat Indirect Bili Not Reportable 11/06/19 23:10 AST 33 U/L (17-59) 11/06/19 23:10 ALT 11 U/L (<50) 11/06/19 23:10 Alkaline Phosphatase 70 U/L (38-126) 11/06/19 23:10 Creatine Kinase 254 U/L (55-170) H 11/06/19 21:40 CK-MB (CK-2) 4.14 ng/mL (<4.55) 11/06/19 21:40 Troponin I < 0.012 ng/mL 11/06/19 21:40 Total Protein 6.9 g/dL (6.3-8.2) 11/06/19 23:10 Albumin 4.0 g/dL (3.5-5.0) 11/06/19 23:10 TSH 4.84 uIU/mL (0.47-4.68) H 11/08/19 06:16 Urine Color YELLOW 11/06/19 22:44 Urine Appearance SLIGHTLY-CLOUDY 11/06/19 22:44 Urine pH 5.0 (5.0-9.0) 11/06/19 22:44 Ur Specific [place] 1.017 11/06/19 22:44 Urine Protein 30 mg/dL (NEGATIVE) H 11/06/19 22:44 Urine Glucose (UA) 50 mg/dL (NEGATIVE) H 11/06/19 22:44 Urine Ketones NEGATIVE mg/dL (NEGATIVE) 11/06/19 22:44 Urine Blood MODERATE (NEGATIVE) H 11/06/19 22:44 Urine Nitrite NEGATIVE (NEGATIVE) 11/06/19 22:44 Urine Bilirubin NEGATIVE (NEGATIVE) 11/06/19 22:44 Urine Urobilinogen NEGATIVE mg/dL (<2.0) 11/06/19 22:44 Ur Leukocyte Esterase NEGATIVE (NEGATIVE) 11/06/19 22:44 Urine WBC (Auto) 3 /HPF 11/06/19 22:44 Urine RBC (Auto) 2 /HPF 11/06/19 22:44 Urine Bacteria (Auto) TRACE /HPF 11/06/19 22:44 Squamous Epi Cells Auto 12 /HPF 11/06/19 22:44 Urine Mucus (Auto) FEW /LPF 11/06/19 22:44 Urine Ascorbic Acid NEGATIVE (NEGATIVE) 11/06/19 22:44 Time Trough Drawn 1000 11/08/19 10:00 Vancomycin Trough < 5.0 ug/mL (5.0-20.0) L 11/08/19 10:00 Influenza A (Rapid) NEGATIVE (NEGATIVE) 11/06/19 22:44 Influenza B (Rapid) NEGATIVE (NEGATIVE) 11/06/19 22:44 11/06/19 21:40 CK-MB (CK-2) 4.14 Troponin I < 0.012 Impressions: Chest X-Ray 11/06/19 21:40 IMPRESSION: No acute cardiopulmonary process copyright 2011 [employer]- All Rights Reserved Head CT 11/06/19 21:40 IMPRESSION: No acute intracranial abnormality. Abdomen/Pelvis CT 11/06/19 23:08 IMPRESSION: No definite acute inflammatory process. Plan Time Spent: Less than 30 Minutes Stroke Is this a Stroke Patient?: No Acute Heart Failure - Is this a Heart Failure Patient?: No
[2019-11-09] MEDS: MEMANTINE HCL 10 MG TABLET PO SCH (11:21)
[2019-11-09] MEDS: RISPERIDONE 1 MG TABLET PO SCH (11:22)
[2019-11-09] MEDS: FOLIC ACID 1 MG TABLET PO SCH (11:22)
[2019-11-09] MEDS: DOCUSATE SODIUM 100 MG CAPSULE PO SCH (11:22)
== END 2019-11-09 13:10 | disposition home or self-care (01) ==
LOC: ER 21:38 → INTOOBSV 11-07 05:15 → EH 11-07 05:15 → 4S 11-07 06:57
PROVIDERS: ADMIT Emergency Medicine; ATTEND Emergency Medicine
DX: A41.9 Sepsis, unspecified organism (principal); R65.20 Severe sepsis without septic shock; G93.41 Metabolic encephalopathy; F03.90 Unspecified dementia, unspecified severity, without behavioral disturbance, psychotic disturbance, mood disturbance, and anxiety; R53.1 Weakness; Z79.899 Other long term (current) drug therapy
CPT/HCPCS: 93005; 99285; 96365; 96366; 96367; 36415 ×4; 87040; 82553; 82962; 82550; 83605 ×2; 83735 ×2; 84443; 85025; 85027 ×2; 85610; 85730; 87070; 80048 ×2; 80053; 81001; 84484; 80202; 82803; 87804; 71045; 70450; 74177; 93010; A9270 ×11; J1644; J3230 ×2; J2060; J3490 ×3; J7060; J7121; J7050; J7030; J3370; J2543 ×2; G0378

== ENCOUNTER 2019-12-21 01:43 | Inpatient (IN) | payer MEDICARE ==
[2019-12-21] MEDS ORDERED: ACETAMINOPHEN 650 MG SUPP.RECT PR ONE (01:55)
[2019-12-21] MEDS ORDERED: NORMAL SALINE 1000 ML 1,000 ML IV ONE ×2 (02:31→03:55)
--- NOTE | 2019-12-21 02:33 | ER Document Report ---
ED General - General Chief Complaint: Altered Mental Status Stated Complaint: ALTERED MENTAL STATUS Time Seen by Provider: 12/21/19 02:21 Notes: Patient is a 79-year-old male that comes by EMS from [facility] for chief complaint of altered mental status. No other symptoms reported including vomiting, cough, diarrhea. Patient was noted to have a slightly loose stool here, nonbloody. Patient was also found to have a fever of 101.2 F on arrival. Reportedly patient is normally conversational and ambulatory, patient will respond and follow directions but he will not answer any questions at this time. Patient is reportedly healthy at baseline, medications include Namenda and Risperdal but no recorded history of cardiovascular disease, diabetes, etc. TRAVEL OUTSIDE OF THE [place] IN LAST 30 DAYS: No - Related Data Allergies/Adverse Reactions: No Known Allergies Allergy (Verified 11/06/19 22:56) Home Medications: ergocalciferol, melatonin, azelastine, b12, folic acid, nemenda, resperidone, Past Medical History - General Information source: Patient - Social History Smoking Status: Unknown if Ever Smoked Chew tobacco use (# tins/day): No Frequency of alcohol use: None Drug Abuse: None Lives with: Alf Family History: Other - Dementia. denies: CAD, DM, Hypertension, Malignancy Patient has suicidal ideation: No Patient has homicidal ideation: No - Past Medical History Cardiac Medical History: Denies: Hx Coronary Artery Disease, Hx Heart Attack, Hx Hypertension Pulmonary Medical History: Denies: Hx Asthma, Hx COPD Neurological Medical History: Denies: Hx Cerebrovascular Accident, Hx Seizures Endocrine Medical History: Denies: Hx Diabetes Mellitus Type 1, Hx Diabetes Mellitus Type 2, Hx Hyperthyroidism, Hx Hypothyroidism GI Medical History: Denies: Hx Cirrhosis, Hx Crohn's Disease, Hx Gastroesophageal Reflux Disease, Hx Hepatitis, Hx Hiatal Hernia, Hx Ulcer, Hx Ulcerative Colitis Musculoskeletal Medical History: Denies Hx Arthritis, Denies Hx Gout Skin Medical History: Denies Hx Eczema, Denies Hx Psoriasis Psychiatric Medical History: Reports: Hx Dementia Infectious Medical History: Denies: Hx Hepatitis Past Surgical History: Reports: Hx Herniorrhaphy, Other - Bilateral cataract surgery, anal fissure surgery. Denies: Hx Open Heart Surgery, Hx Pacemaker - Immunizations Immunizations up to date: Yes Hx Diphtheria, Pertussis, Tetanus Vaccination: Yes Review of Systems - Review of Systems Constitutional: See HPI EENT: No symptoms reported Cardiovascular: No symptoms reported Respiratory: No symptoms reported Gastrointestinal: No symptoms reported Genitourinary: No symptoms reported Male Genitourinary: No symptoms reported Musculoskeletal: No symptoms reported Skin: No symptoms reported Hematologic/Lymphatic: No symptoms reported Neurological/Psychological: See HPI Physical Exam - Vital signs Vitals: Pulse Resp BP Pulse Ox 85 16 123/99 H 100 12/21/19 01:44 12/21/19 01:44 12/21/19 01:44 12/21/19 01:44 - Notes Notes: GENERAL: Drowsy but does arouse to verbal stimuli. Does not appear to be in distress. HEAD: Normocephalic, atraumatic. EYES: Pupils equal, round, and reactive to light. Extraocular movements intact. ENT: Oral mucosa dry, tongue midline. Oropharynx unremarkable. Airway patent. LUNGS: Few scattered coarse breath sounds. Occasional congested cough. No overt wheezes, rales, or rhonchi. No respiratory distress. HEART: Regular rate and rhythm. No murmur ABDOMEN: Soft, non-tender. Non-distended. EXTREMITIES: Moves all 4 extremities spontaneously. No edema, normal radial and dorsalis pedis pulses bilaterally. No cyanosis. BACK: no cervical, thoracic, lumbar midline tenderness. No saddle anesthesia, normal distal neurovascular exam. Moves all extremities in full range of motion. NEUROLOGICAL: Arousable, repeats questions back to me, disoriented. Speech is not slurred. Cranial nerves II through XII grossly intact. SKIN: Warm, dry, normal turgor. No rashes or lesions noted. Course - Re-evaluation Re-evalutation: Patient does have an occasional congested cough, patient is cooperative but will not speak, patient does not appear to be in distress. He is febrile but he is not tachycardic, hypotensive, or hypoxic. Septic work-up pending. came to bedside. She states that patient lives in the "memory unit" at [facility], she states that he is intermittently confused but he is still mainly active. She states that over the past 2 to 3 days that he has become increasingly less active and less conversational. She denies any obvious symptoms otherwise. Patient is a full code. 12/21/19 CBC unremarkable with no leukocytosis or leukopenia. Chemistry nonspecific. Lactic acid is elevated at 2.9. Urinalysis is actually unremarkable with culture pending, blood cultures pending as well. Because of patient's hypotension and readings along with elevated lactic acid and fever (in addition to patient coming from long-term care facility) patient has been started on broad-spectrum antibiotics. Suddenly his blood pressure normalized, it dropped down again, we checked this manually and this was normal at 110/60. I suspect there has been some error. Patient is not tachycardic, hypoxic. Patient was noted to have been admitted to the hospital for the same situation (delirium, altered mental status, fever, elevated lactic acid). No positive blood cultures, patient simply resolved and went home. Influenza negative. Patient has a intermittent congested cough. I did discuss with Dr. Jean. Patient appears to have a bend in his spine and has difficulty straightening, as result I suspect this would be a very difficult lumbar puncture. He does not recommend lumbar puncture, he recommends broad coverage and admission to the hospitalist service. I spoke with Dr. Fernandez, patient is accepted to [facility] full admission. - Vital Signs Vital signs: Temp Pulse Resp BP Pulse Ox 98.6 F 90 14 110/60 99 12/21/19 04:31 12/21/19 04:31 12/21/19 04:31 12/21/19 05:15 12/21/19 04:31 - Laboratory Result Diagrams: 12/21/19 02:25 12/21/19 02:25 Laboratory results interpreted by me: 12/21/19 12/21/19 12/21/19 02:25 02:25 02:25 RBC 3.56 L Hgb 11.1 L Hct 32.2 L Plt Count 123 L Lymph % (Auto) 5.4 L Absolute Lymphs (auto) 0.4 L Seg Neutrophils % 80.4 H Sodium 129.0 L Potassium 5.1 H Chloride 94 L Glucose 125 H Lactic Acid 2.4 H Urine Protein Urine Ascorbic Acid 12/21/19 02:45 RBC Hgb Hct Plt Count Lymph % (Auto) Absolute Lymphs (auto) Seg Neutrophils % Sodium Potassium Chloride Glucose Lactic Acid Urine Protein 100 H Urine Ascorbic Acid 40 H Discharge - Discharge Clinical Impression: Elevated lactic acid level Fever Qualifiers: Fever type: unspecified Qualified Code(s): R50.9 - Fever, unspecified Altered mental status Qualifiers: Altered mental status type: unspecified Qualified Code(s): R41.82 - Altered mental status, unspecified Condition: Stable Disposition: ADMITTED INPATIENT Admitting Provider: Jim (Hospitalist) Unit Admitted: [facility]
--- NOTE | 2019-12-21 02:41 | RADIOLOGY REPORT (SQ) ---
EXAM DESCRIPTION: XR CHEST 1 VIEW COMPLETED DATE/TME: 12/21/2019 00:00 CLINICAL HISTORY: 79 years, Male, altered COMPARISON: 11/06/2019 chest NUMBER OF VIEWS: 1 TECHNIQUE: Portable chest LIMITATIONS: None. FINDINGS: The heart size is normal. Osteopenia. Lungs are clear. No pneumothorax. Patient's chin obscures portions of the lung apices IMPRESSION: No acute cardiopulmonary process copyright 2010 [employer]- All Rights Reserved
[2019-12-21 02:42] LABS: VENOUS BLOOD BASE EXCESS -0.2 mmol/L; VENOUS BLOOD HCO3 26.8 mmol/L (20-32); VENOUS BLOOD PCO2 54.5 mmHg (35-63); VENOUS BLOOD PH 7.31 (7.30-7.42)
[2019-12-21 02:47] LABS: ABSOLUTE LYMPHOCYTES (AUTO) 0.4 10^3/uL (0.5-4.7); ABSOLUTE MONOCYTES (AUTO) 0.9 10^3/uL (0.1-1.4); ABSOLUTE NEUT (AUTO) 5.7 10^3/uL (1.7-8.2); BASOPHILS % (AUTO) 0.6 % (0-2); EOSINOPHILS % (AUTO) 0.6 % (0-6); HEMATOCRIT 32.2 % (37.9-51.0); HEMOGLOBIN 11.1 g/dL (13.5-17.0); LYMPHOCYTES % (AUTO) 5.4 % (13-45); MEAN CORPUSCULAR HEMOGLOBIN 31.2 pg (27.0-33.4); MEAN CORPUSCULAR HGB CONC 34.5 g/dL (32.0-36.0); MEAN CORPUSCULAR VOLUME 90 fl (80-97); PLATELET COUNT 123 10^3/uL (150-450); RED BLOOD COUNT 3.56 10^6/uL (4.35-5.55); RED CELL DISTRIBUTION WIDTH 13.8 % (11.5-14.0); SEGMENTED NEUTROPHILS % (AUTO) 80.4 % (42-78); TOTAL CELLS COUNTED % (AUTO) 100 %; WHITE BLOOD COUNT 7.1 10^3/uL (4.0-10.5)
[2019-12-21 03:00] LABS: ALBUMIN 3.9 g/dL (3.5-5.0); ALKALINE PHOSPHATASE 59 U/L (38-126); ANION GAP 11 (5-19); ASPARTATE AMINO TRANSFERASE 32 U/L (17-59); BILIRUBIN,TOTAL 0.5 mg/dL (0.2-1.3); BLOOD UREA NITROGEN 19 mg/dL (7-20); CALCIUM 8.8 mg/dL (8.4-10.2); CARBON DIOXIDE 24 mmol/L (22-30); CHLORIDE 94 mmol/L (98-107); GLUCOSE 125 mg/dL (75-110); POTASSIUM 5.1 mmol/L (3.6-5.0); TOTAL PROTEIN 6.6 g/dL (6.3-8.2)
[2019-12-21 03:15] LABS: APPEARANCE,URINE SLIGHTLY-CLOUDY; BILIRUBIN,URINE NEGATIVE (NEGATIVE); COLOR,URINE YELLOW; GLUCOSE, URINE NEGATIVE (NEGATIVE); KETONES,URINE NEGATIVE (NEGATIVE); PROTEIN,URINE 100 mg/dL (NEGATIVE); URINE SPECIFIC GRAVITY 1.019; UROBILINOGEN,URINE NEGATIVE mg/dL (<2.0)
[2019-12-21 03:33] LABS: A TYPE INFLUENZA AG NEGATIVE (NEGATIVE); B INFLUENZA AG NEGATIVE (NEGATIVE)
[2019-12-21] MEDS ORDERED: PIPERACILLIN/TAZOBACTAM 3.375 GM VIAL IV ONE (03:54)
[2019-12-21] MEDS ORDERED: VANCOMYCIN HCL INJ 1000 MG VIAL IV ONE (03:55)
[2019-12-21] MEDS ORDERED: NORMAL SALINE 500 ML IV ONE (03:56)
[2019-12-21 05:16] LABS: INTERNATIONAL RATION (INR) 1.11; PROTHROMBIN TIME 14.3 SEC (11.4-15.4)
[2019-12-21] MEDS ORDERED: MAG HYDROX/AL HYDROX/SIMETH SUSP 30 ML UDCUP PO PRN (06:06)
--- NOTE | 2019-12-21 06:42 | PDOC H&P ---
History of Present Illness Admission Date/PCP: 12/21/19 06:20 BILLY SALVADOR MD Patient complains of: Altered mental status History of Present Illness: LESLY GUNTER is a 79 year old male who currently resides in a memory care unit due to his severe Alzheimer's dementia. In October he had a similar presentation to the hospital. Staff felt that he was more confused. He was sent to the hospital. He had a minimally elevated white blood cell count. There was no identifiable reason for the lactic acidemia on the last visit. There is no obvious source on this visit either. He has blood pressure is marginal. The patient cannot participate in the history or physical and no family members are present. Past Medical History Cardiac Medical History: Denies: Coronary Artery Disease, Myocardial Infarction, Hypertension Pulmonary Medical History: Denies: Asthma, Chronic Obstructive Pulmonary Disease (COPD) Neurological Medical History: Denies: Seizures Endocrine Medical History: Denies: Diabetes Mellitus Type 1, Diabetes Mellitus Type 2, Hyperthyroidism, Hypothyroidism GI Medical History: Denies: Cirrhosis, Crohn's Disease, Gastroesophageal Reflux Disease, Hepatitis, Hiatal Hernia, Ulcerative Colitis Musculoskeltal Medical History: Denies: Arthritis, Gout Skin Medical History: Denies: Eczema, Psoriasis Psychiatric Medical History: Reports: Dementia Hematology: Denies: Anemia, Sickle Cell Disease, Bleeding Tendencies Past Surgical History Past Surgical History: Reports: Herniorrhaphy, Other - Bilateral cataract surgery, anal fissure surgery Denies: Pacemaker Social History Information Source: [facility] Records Lives with: [facility] Smoking Status: Unknown if Ever Smoked Electronic Cigarette use?: No Frequency of Alcohol Use: None Hx Recreational Drug Use: No Drugs: None Hx Prescription Drug Abuse: No - Advance Directive Resuscitation Status: Full Code Surrogate healthcare decision maker:: Per prison paperwork Family History Family History: Other - Dementia. denies: CAD, DM, Hypertension, Malignancy Parental Family History Reviewed: No Children Family History Reviewed: No Sibling(s) Family History Reviewed.: No Medication/Allergy Home Medications: Folic Acid 1 mg PO DAILY 11/06/19 Memantine HCl 5 mg PO DAILY 11/06/19 Risperidone [Risperdal 1 mg Tablet] 0.5 mg PO Q12 11/06/19 Azelastine HCl 12/21/19 Ergocalciferol (Vitamin D2) [Ergocal] 5,000 unit PO 12/21/19 Melatonin/Pyridoxine HCl (B6) [Melatonin 3 mg Tablet] 1 each PO 12/21/19 Memantine HCl [Namenda] 5 mg PO 12/21/19 Allergies/Adverse Reactions: No Known Allergies Allergy (Verified 11/06/19 22:56) Review of Systems ROS unobtainable: Due to mental status Physical Exam Vital Signs: Temp Pulse Resp BP Pulse Ox 98.6 F 90 14 110/60 99 12/21/19 04:31 12/21/19 04:31 12/21/19 04:31 12/21/19 05:15 12/21/19 04:31 Intake & Output 12/19/19 12/20/19 12/21/19 06:59 06:59 06:59 Intake Total 2500 Balance 2500 Weight 77.9 kg General appearance: PRESENT: no acute distress, well-developed, other - Sleeping soundly. Difficult to awake. He was up most of the night. Head exam: PRESENT: atraumatic, normocephalic Respiratory exam: PRESENT: clear to auscultation maco - Anteriorly, symmetrical, unlabored. ABSENT: rales, rhonchi, tachypnea, wheezes Cardiovascular exam: PRESENT: RRR, +S1, +S2 GI/Abdominal exam: PRESENT: diminished bowel sounds, soft. ABSENT: distended, mass, tenderness Rectal exam: PRESENT: deferred Extremities exam: PRESENT: pedal edema, +1 edema Musculoskeletal exam: PRESENT: normal inspection Neurological exam: ABSENT: awake Psychiatric exam: ABSENT: agitated Focused psych exam: ABSENT: restlessness Results Laboratory Results: 12/21/19 02:25 12/21/19 02:25 12/21/19 12/21/19 12/21/19 02:25 02:25 02:25 WBC 7.1 RBC 3.56 L Hgb 11.1 L Hct 32.2 L MCV 90 MCH 31.2 MCHC 34.5 RDW 13.8 Plt Count 123 L Seg Neutrophils % 80.4 H VBG pH 7.31 VBG pCO2 54.5 VBG HCO3 26.8 VBG Base Excess -0.2 Sodium 129.0 L Potassium 5.1 H Chloride 94 L Carbon Dioxide 24 Anion Gap 11 BUN 19 Creatinine 0.88 Est GFR ( Amer) > 60 Glucose 125 H Lactic Acid Calcium 8.8 Total Bilirubin 0.5 AST 32 Alkaline Phosphatase 59 Total Protein 6.6 Albumin 3.9 Urine Color Urine Appearance Urine pH Ur Specific [place] Urine Protein Urine Glucose (UA) Urine Ketones Urine Blood Urine Nitrite Ur Leukocyte Esterase Urine WBC (Auto) Urine RBC (Auto) 12/21/19 12/21/19 12/21/19 02:25 02:45 04:48 WBC RBC Hgb Hct MCV MCH MCHC RDW Plt Count Seg Neutrophils % VBG pH VBG pCO2 VBG HCO3 VBG Base Excess Sodium Potassium Chloride Carbon Dioxide Anion Gap BUN Creatinine Est GFR ( Amer) Glucose Lactic Acid 2.4 H 1.0 Calcium Total Bilirubin AST Alkaline Phosphatase Total Protein Albumin Urine Color YELLOW Urine Appearance SLIGHTLY-CLOUDY Urine pH 6.0 Ur Specific [place] 1.019 Urine Protein 100 H Urine Glucose (UA) NEGATIVE Urine Ketones NEGATIVE Urine Blood NEGATIVE Urine Nitrite Cancelled Ur Leukocyte Esterase Cancelled Urine WBC (Auto) Cancelled Urine RBC (Auto) 1 Impressions: Chest X-Ray 12/21/19 00:00 IMPRESSION: No acute cardiopulmonary process copyright 2011 [employer]- All Rights Reserved Assessment and Plan - Diagnosis (1) Acute encephalopathy Is this a current diagnosis for this admission?: Yes Plan: 12/21/2019 The patient had a similar presentation in October. Patient was admitted and given IV fluids. No obvious etiology for the change in mental status or elevated lactic acid level were identified at that time. There is no obvious infection for this admission. There does not appear to be any acute kidney injury. There is been no reported head injury. The patient is afebrile and he has a normal white blood cell count. This is possibly a metabolic encephalopathy as there is no other identifiable source. (2) Elevated lactic acid level Is this a current diagnosis for this admission?: Yes Plan: 12/21/2019 With IV fluids the lactic acid level has normalized. No obvious source defined. (3) Chronic dementia without behavioral disturbance Is this a current diagnosis for this admission?: Yes Plan: Currently on risperidone and the Namenda. Continue the same dose. (4) Hyperkalemia Is this a current diagnosis for this admission?: Yes Plan: 12/21/2019 With IV fluids the slightly increased serum potassium levels should correct. We will recheck laboratory studies tomorrow. (5) Hyponatremia Is this a current diagnosis for this admission?: Yes Plan: 12/21/2019 Normal saline IV fluids. His serum sodium should correct. Recheck serum chemistries tomorrow. - Time Time Spent with patient: 35 or more minutes Medications reviewed and adjusted accordingly: Yes Anticipated discharge: Other - Back to long-term care Within: within 48 hours
[2019-12-21] MEDS: NORMAL SALINE 1000 ML 1,000 ML IV PRN ×2 (08:01→15:02)
--- NOTE | 2019-12-21 08:34 | EKG REPORT ---
SEVERITY:- NORMAL ECG - SINUS RHYTHM : Confirmed by: Freeman Patterson MD 21-Dec-2019 08:34:16
[2019-12-21] MEDS ORDERED: RISPERIDONE 1 MG TABLET PO SCH (10:00)
[2019-12-21] MEDS: FOLIC ACID 1 MG TABLET PO SCH (12:10)
[2019-12-21] MEDS: MEMANTINE HCL 10 MG TABLET PO SCH (12:10)
[2019-12-21] MEDS: RISPERIDONE 1 MG TABLET PO SCH ×2 (12:11→22:24)
[2019-12-21] MEDS: FAMOTIDINE 20 MG TABLET PO SCH ×2 (12:11→22:24)
[2019-12-21] MEDS: ACETAMINOPHEN 650 MG SUPP.RECT PR PRN ×2 (14:54→22:25)
[2019-12-21] MEDS: HEPARIN SOD (PORCINE) 5,000 UNIT/ML 1 ML VIAL SUBCUT SCH ×2 (15:02→21:51)
[2019-12-21] MEDS: ACETAMINOPHEN 325 MG TABLET PO PRN (18:25)
[2019-12-21] MEDS: CITALOPRAM HYDROBROMIDE 20 MG TABLET PO SCH (22:24)
[2019-12-22] MEDS ORDERED: VANCOMYCIN HCL 0 MG in DEXTROSE 5%-WATER 250 ML IV NR (04:15)
[2019-12-22] MEDS: HEPARIN SOD (PORCINE) 5,000 UNIT/ML 1 ML VIAL SUBCUT SCH ×3 (05:44→21:59)
[2019-12-22] MEDS ORDERED: PIPERACILLIN/TAZOBACTAM 3.375 GM VIAL IV ONE (05:51)
[2019-12-22] MEDS: ACETAMINOPHEN 650 MG SUPP.RECT PR PRN ×2 (05:53→16:59)
[2019-12-22] MEDS: PIPERACILLIN SODIUM/TAZOBACTAM 3.375 GM in NORMAL SALINE 100 ML IV SCH ×3 (09:53→21:52)
[2019-12-22] MEDS: MEMANTINE HCL 10 MG TABLET PO SCH (10:02)
[2019-12-22] MEDS: RISPERIDONE 1 MG TABLET PO SCH ×2 (10:02→21:59)
[2019-12-22] MEDS: FOLIC ACID 1 MG TABLET PO SCH (10:02)
[2019-12-22] MEDS: FAMOTIDINE 20 MG TABLET PO SCH ×2 (10:02→21:58)
[2019-12-22] MEDS: VANCOMYCIN HCL 1,000 MG in DEXTROSE 5%-WATER 250 ML IV SCH ×2 (14:23→21:52)
[2019-12-22] MEDS: NORMAL SALINE 1000 ML 1,000 ML IV PRN (16:15)
--- NOTE | 2019-12-22 17:56 | PDOC PROGRESS REPORT ---
Subjective Progress Note for:: 12/22/19 Subjective:: No adverse events overnight. He had a fever this morning but he is been doing better since then. He has been more alert today and has been eating. He had one blood culture turned positive but it looks like it is just a contaminant. He had that fever this morning but he is been afebrile the rest of the day. Reason For Visit: FEVER ELEVATED LACTIC ACID LEVELS ALTERED MENTAL Physical Exam Vital Signs: Temp Pulse Resp BP Pulse Ox 99.2 F 74 16 104/50 L 100 12/22/19 08:29 12/22/19 14:00 12/22/19 08:29 12/22/19 08:29 12/22/19 08:29 Intake & Output 12/21/19 12/22/19 12/23/19 05:59 06:59 06:59 Intake Total 450 Balance 450 Weight General appearance: PRESENT: no acute distress, disheveled Respiratory exam: PRESENT: decreased breath sounds, symmetrical, other - Did have a bit of a congested sounding cough. ABSENT: accessory muscle use, chest wall tenderness, prolonged expiratory phas, retraction, rhonchi, tachypnea, wheezes Cardiovascular exam: PRESENT: RRR, +S1, +S2 Pulses: PRESENT: normal carotid pulses Vascular exam: PRESENT: normal capillary refill GI/Abdominal exam: PRESENT: normal bowel sounds, soft. ABSENT: distended, guarding, rebound, tenderness Extremities exam: ABSENT: clubbing, pedal edema Musculoskeletal exam: PRESENT: normal inspection. ABSENT: deformity Neurological exam: PRESENT: awake, oriented to person Psychiatric exam: PRESENT: flat affect Skin exam: PRESENT: dry, warm Results Laboratory Results: 12/21/19 02:25 12/21/19 02:25 12/21/19 02:25 Blood Blood Culture (PCR) - Final Staphylococcus Species Impressions: Chest X-Ray 12/21/19 00:00 IMPRESSION: No acute cardiopulmonary process copyright 2011 [employer]- All Rights Reserved Assessment and Plan - Diagnosis (1) Febrile illness, acute Is this a current diagnosis for this admission?: Yes Plan: Source is still unclear. I suspect he has a viral illness. He tested negative for the flu. We have not continued him on antibiotics but he does seem to be resolving. His mental status is much improved today and his eating and drinking has improved. He is much more interactive as well. We will continue supportive care. (2) Chronic dementia without behavioral disturbance Is this a current diagnosis for this admission?: Yes Plan: Currently on risperidone and the Namenda. Continue the same dose. - Time Time Spent with patient: 15-24 minutes
[2019-12-22] MEDS: CITALOPRAM HYDROBROMIDE 20 MG TABLET PO SCH (21:59)
[2019-12-23] MEDS: PIPERACILLIN SODIUM/TAZOBACTAM 3.375 GM in NORMAL SALINE 100 ML IV SCH ×4 (03:50→21:41)
[2019-12-23] MEDS: NORMAL SALINE 1000 ML 1,000 ML IV PRN ×2 (04:47→23:37)
[2019-12-23] MEDS: HEPARIN SOD (PORCINE) 5,000 UNIT/ML 1 ML VIAL SUBCUT SCH ×3 (05:08→21:37)
[2019-12-23] MEDS: RISPERIDONE 1 MG TABLET PO SCH ×2 (12:22→21:41)
[2019-12-23] MEDS: FOLIC ACID 1 MG TABLET PO SCH (12:22)
[2019-12-23] MEDS: VANCOMYCIN HCL 1,000 MG in DEXTROSE 5%-WATER 250 ML IV SCH ×2 (12:23→21:55)
[2019-12-23] MEDS: FAMOTIDINE 20 MG TABLET PO SCH ×3 (12:23→21:55)
[2019-12-23] MEDS: MEMANTINE HCL 10 MG TABLET PO SCH (12:23)
--- NOTE | 2019-12-23 18:35 | PDOC PROGRESS REPORT ---
Subjective Progress Note for:: 12/23/19 Subjective:: After going all day yesterday without a fever, he had 1 yesterday evening. Empiric antibiotics have been started. There is still no clue whatsoever as to the source. He is a little bit more alert today than he has been in previous days. Reason For Visit: ENCEPHALOPATHY LIKELY METABOLIC, DEMENTIA : Physical Exam Vital Signs: Temp Pulse Resp BP Pulse Ox 102.5 F H 79 20 119/49 L 97 12/23/19 16:00 12/23/19 16:00 12/23/19 16:00 12/23/19 16:00 12/23/19 16:00 Intake & Output 12/22/19 12/23/19 12/24/19 06:59 06:59 06:59 Intake Total 2690 590 Balance 2690 590 Weight 80.1 kg General appearance: PRESENT: no acute distress, disheveled Respiratory exam: PRESENT: decreased breath sounds, symmetrical. ABSENT: accessory muscle use, chest wall tenderness, prolonged expiratory phas, r etraction, rhonchi, tachypnea, wheezes Cardiovascular exam: PRESENT: RRR, +S1, +S2 Pulses: PRESENT: normal carotid pulses Vascular exam: PRESENT: normal capillary refill GI/Abdominal exam: PRESENT: normal bowel sounds, soft. ABSENT: distended, guarding, rebound, tenderness Extremities exam: ABSENT: clubbing, pedal edema Musculoskeletal exam: PRESENT: normal inspection. ABSENT: deformity Neurological exam: PRESENT: awake, oriented to person Psychiatric exam: PRESENT: flat affect Skin exam: PRESENT: dry, warm Results Laboratory Results: 12/21/19 02:25 12/21/19 02:25 12/21/19 02:25 Blood Blood Culture (PCR) - Final Staphylococcus Species Impressions: Chest X-Ray 12/21/19 00:00 IMPRESSION: No acute cardiopulmonary process copyright 2011 [id number]- All Rights Reserved Assessment and Plan - Diagnosis (1) Febrile illness, acute Is this a current diagnosis for this admission?: Yes Plan: Still no real clue, the only thing is that he had a bit of a congested sounding cough yesterday, so the only assumption could be that this is a respiratory infection of some sort. He has been covered empirically with antibiotics. We will monitor him to see if he responds. (2) Chronic dementia without behavioral disturbance Is this a current diagnosis for this admission?: Yes Plan: Currently on risperidone and the Namenda. Continue the same dose. - Time Time Spent with patient: 15-24 minutes
[2019-12-23] MEDS: ACETAMINOPHEN 325 MG TABLET PO PRN (18:52)
[2019-12-23 20:55] LABS: VANCOMYCIN,TROUGH 11.1 ug/mL (5.0-20.0)
[2019-12-23] MEDS: CITALOPRAM HYDROBROMIDE 20 MG TABLET PO SCH ×2 (21:41→21:55)
[2019-12-24] MEDS: PIPERACILLIN SODIUM/TAZOBACTAM 3.375 GM in NORMAL SALINE 100 ML IV SCH ×4 (03:57→21:20)
[2019-12-24] MEDS: HEPARIN SOD (PORCINE) 5,000 UNIT/ML 1 ML VIAL SUBCUT SCH ×3 (05:13→21:26)
[2019-12-24] MEDS: FAMOTIDINE 20 MG TABLET PO SCH ×2 (09:41→21:20)
[2019-12-24] MEDS: FOLIC ACID 1 MG TABLET PO SCH (09:41)
[2019-12-24] MEDS: MEMANTINE HCL 10 MG TABLET PO SCH (09:41)
[2019-12-24] MEDS: RISPERIDONE 1 MG TABLET PO SCH ×2 (09:42→21:19)
[2019-12-24] MEDS: VANCOMYCIN HCL 1,000 MG in DEXTROSE 5%-WATER 250 ML IV SCH (12:12)
[2019-12-24] MEDS: NORMAL SALINE 1000 ML 1,000 ML IV PRN ×2 (12:13→23:50)
--- NOTE | 2019-12-24 18:05 | Death Summary ---
Summary Date : 12/24/19 Time of :: 17:33 Autopsy: No Resuscitation Status: Comfort Measures Only - Final Diagnosis (1) Febrile illness, acute Is this a current diagnosis for this admission?: Yes (2) Chronic dementia without behavioral disturbance Is this a current diagnosis for this admission?: Yes Hospital Course:: He did not improve on BiPAP. He had one brief period yesterday evening where he woke up and was able to interact a little bit, but he continued to deteriorate and his PCO2 continued to remain substantially elevated. His family ultimately decided to make him comfort measures only. Comfort measures were instituted and he this afternoon at 1733 hrs.
[2019-12-24] MEDS: VANCOMYCIN HCL 750 MG in DEXTROSE 5%-WATER 250 ML IV SCH (19:12)
--- NOTE | 2019-12-24 19:41 | PDOC PROGRESS REPORT ---
Subjective Progress Note for:: 12/24/19 Subjective:: No adverse events overnight. He had a fever again last night even though he has been started on very broad-spectrum antibiotics. He was sitting up in the bed messing with a milk carton. He does not say very much when he tries to respond to questions. Reason For Visit: ENCEPHALOPATHY LIKELY METABOLIC, DEMENTIA : Physical Exam Vital Signs: Temp Pulse Resp BP Pulse Ox 98.9 F 63 18 129/63 H 99 12/24/19 15:25 12/24/19 15:25 12/24/19 15:25 12/24/19 15:25 12/24/19 15:25 Intake & Output 12/23/19 12/24/19 12/25/19 06:59 06:59 06:59 Intake Total 2690 2140 2520 Output Total 725 Balance 2690 2140 1795 Weight 80.1 kg 78.7 kg General appearance: PRESENT: no acute distress, disheveled Respiratory exam: PRESENT: decreased breath sounds, symmetrical. ABSENT: accessory muscle use, chest wall tenderness, prolonged expiratory phas, retraction, rhonchi, tachypnea, wheezes Cardiovascular exam: PRESENT: RRR, +S1, +S2 Pulses: PRESENT: normal carotid pulses Vascular exam: PRESENT: normal capillary refill GI/Abdominal exam: PRESENT: normal bowel sounds, soft. ABSENT: distended, guard ing, rebound, tenderness Extremities exam: ABSENT: clubbing, pedal edema Musculoskeletal exam: PRESENT: normal inspection. ABSENT: deformity Neurological exam: PRESENT: awake, oriented to person Psychiatric exam: PRESENT: flat affect Skin exam: PRESENT: dry, warm Results Laboratory Results: 12/21/19 02:25 12/21/19 02:25 12/21/19 02:25 Blood Blood Culture (PCR) - Final Staphylococcus Species Impressions: Chest X-Ray 12/21/19 00:00 IMPRESSION: No acute cardiopulmonary process copyright 2011 [employer]- All Rights Reserved Assessment and Plan - Diagnosis (1) Febrile illness, acute Is this a current diagnosis for this admission?: Yes Plan: Still no idea what is driving this. We are treating this as if he has some kind of a respiratory ailment because he did have a cough earlier. He still having fevers intermittently through the antibiotics. Cultures have been negative. I believe his mental status is at its baseline. (2) Chronic dementia without behavioral disturbance Is this a current diagnosis for this admission?: Yes Plan: I believe his mental status is at its baseline - Time Time Spent with patient: 15-24 minutes
[2019-12-24] MEDS: CITALOPRAM HYDROBROMIDE 20 MG TABLET PO SCH (21:20)
[2019-12-25] MEDS: VANCOMYCIN HCL 750 MG in DEXTROSE 5%-WATER 250 ML IV SCH ×3 (01:30→18:21)
[2019-12-25] MEDS: PIPERACILLIN SODIUM/TAZOBACTAM 3.375 GM in NORMAL SALINE 100 ML IV SCH ×4 (03:10→22:04)
[2019-12-25] MEDS: HEPARIN SOD (PORCINE) 5,000 UNIT/ML 1 ML VIAL SUBCUT SCH ×3 (05:38→22:06)
[2019-12-25] MEDS: FOLIC ACID 1 MG TABLET PO SCH (10:16)
[2019-12-25] MEDS: MEMANTINE HCL 10 MG TABLET PO SCH (10:16)
[2019-12-25] MEDS: FAMOTIDINE 20 MG TABLET PO SCH ×2 (10:17→22:04)
[2019-12-25] MEDS: RISPERIDONE 1 MG TABLET PO SCH ×2 (10:18→22:04)
[2019-12-25] MEDS: NORMAL SALINE 1000 ML 1,000 ML IV PRN (13:39)
[2019-12-25 14:04] LABS: ANION GAP 7 (5-19); BLOOD UREA NITROGEN 11 mg/dL (7-20); CALCIUM 7.8 mg/dL (8.4-10.2); CARBON DIOXIDE 27 mmol/L (22-30); CHLORIDE 98 mmol/L (98-107); GLUCOSE 126 mg/dL (75-110)
[2019-12-25 18:25] LABS: VANCOMYCIN,TROUGH 13.3 ug/mL (5.0-20.0)
--- NOTE | 2019-12-25 18:45 | PDOC PROGRESS REPORT ---
Subjective Progress Note for:: 12/25/19 Subjective:: No adverse events overnight. He was able to feed himself a plate of spaghetti with some vegetables today. He has been afebrile overnight. Reason For Visit: ENCEPHALOPATHY LIKELY METABOLIC, DEMENTIA : Physical Exam Vital Signs: Temp Pulse Resp BP Pulse Ox 98.3 F 55 L 20 117/68 98 12/25/19 11:32 12/25/19 11:32 12/25/19 11:32 12/25/19 11:32 12/25/19 11:32 Intake & Output 12/24/19 12/25/19 12/26/19 06:59 06:59 06:59 Intake Total 2140 4340 1676 Output Total 1525 Balance 2140 2815 1676 Weight 78.7 kg 80.7 kg General appearance: PRESENT: no acute distress, disheveled Respiratory exam: PRESENT: decreased breath sounds, symmetrical. ABSENT: accessory muscle use, chest wall tenderness, prolonged expiratory phas, retraction, rhonchi, tachypnea, wheezes Cardiovascular exam: PRESENT: RRR, +S1, +S2 Pulses: PRESENT: normal carotid pulses Vascular exam: PRESENT: normal capillary refill GI/Abdominal exam: PRESENT: normal bowel sounds, soft. ABSENT: distended, guarding, rebound, tenderness Extremities exam: ABSENT: clubbing, pedal edema Musculoskeletal exam: PRESENT: normal inspection. ABSENT: deformity Neurological exam: PRESENT: awake, oriented to person Psychiatric exam: PRESENT: flat affect Skin exam: PRESENT: dry, warm Results Laboratory Results: 12/21/19 02:25 12/25/19 13:23 12/25/19 13:23 Sodium 132.2 L Potassium 4.0 Chloride 98 Carbon Dioxide 27 Anion Gap 7 BUN 11 Creatinine 0.67 Est GFR ( Amer) > 60 Glucose 126 H Calcium 7.8 L 12/21/19 02:25 Blood Blood Culture (PCR) - Final Staphylococcus Species 12/21/19 02:25 Blood Blood Culture - Final Staphylococcus Epidermidis Impressions: Chest X-Ray 12/21/19 00:00 IMPRESSION: No acute cardiopulmonary process copyright 2011 [employer]- All Rights Reserved Assessment and Plan - Diagnosis (1) Febrile illness, acute Is this a current diagnosis for this admission?: Yes Plan: Still no idea what is driving this. We are treating this as if he has some kind of a respiratory ailment because he did have a cough earlier. Been afebrile overnight again. Cultures have been negative except for a blood culture which is a contaminant. I believe his mental status is at its baseline. If he is afebrile at night again we will probably send him home in the morning with some empiric oral antibiotics. (2) Chronic dementia without behavioral disturbance Is this a current diagnosis for this admission?: Yes Plan: I believe his mental status is at its baseline - Time Time Spent with patient: 15-24 minutes
[2019-12-25] MEDS: CITALOPRAM HYDROBROMIDE 20 MG TABLET PO SCH (22:04)
[2019-12-26] MEDS: NORMAL SALINE 1000 ML 1,000 ML IV PRN (00:47)
[2019-12-26] MEDS: VANCOMYCIN HCL 750 MG in DEXTROSE 5%-WATER 250 ML IV SCH ×3 (01:10→17:38)
[2019-12-26] MEDS: PIPERACILLIN SODIUM/TAZOBACTAM 3.375 GM in NORMAL SALINE 100 ML IV SCH ×3 (03:11→15:16)
[2019-12-26] MEDS: HEPARIN SOD (PORCINE) 5,000 UNIT/ML 1 ML VIAL SUBCUT SCH ×3 (05:50→22:21)
[2019-12-26] MEDS: FOLIC ACID 1 MG TABLET PO SCH (09:48)
[2019-12-26] MEDS: MEMANTINE HCL 10 MG TABLET PO SCH (09:48)
[2019-12-26] MEDS: FAMOTIDINE 20 MG TABLET PO SCH ×2 (09:48→22:20)
[2019-12-26] MEDS: RISPERIDONE 1 MG TABLET PO SCH ×2 (09:50→22:20)
--- NOTE | 2019-12-26 16:39 | PDOC TRANSFER SUMMARY ---
Impression - Admit/DC Date/PCP Admission Date/Primary Care Provider: 12/23/19 16:02 BILLY SALVADOR MD Discharge Date: 12/26/19 - Discharge Diagnosis (1) Febrile illness, acute Is this a current diagnosis for this admission?: Yes (2) Chronic dementia without behavioral disturbance Is this a current diagnosis for this admission?: Yes - Additional Information Resuscitation Status: Comfort Measures Only Discharge Diet: Cardiac Discharge Activity: Supervised Activity Referrals: Amparo John [Outside] BILLY SALVADOR MD [Primary Care Provider] - 12/31/19 1:30 pm Prescriptions: Cefpodoxime Proxetil [Vantin 200 Mg Tablet] 200 mg PO BID #10 tablet Home Medications: Folic Acid 1 mg PO DAILY 11/06/19 Memantine HCl 5 mg PO DAILY 11/06/19 Risperidone [Risperdal 1 mg Tablet] 0.5 mg PO Q12 11/06/19 Azelastine HCl 1 spray NASL Q12 12/21/19 Cyanocobalamin (Vitamin B-12) [B-12] 1,000 mcg PO DAILY 12/21/19 Ergocalciferol (Vitamin D2) [Ergocal] 5,000 unit PO MO@1000 12/21/19 Cefpodoxime Proxetil [Vantin 200 Mg Tablet] 200 mg PO BID #10 tablet 12/26/19 History of Present Illiness History of Present Illness: LESLY GUNTER is a 79 year old male who currently resides in a memory care unit due to his severe Alzheimer's dementia. In October he had a similar presentation to the hospital. Staff felt that he was more confused. He was sent to the hospital. He had a minimally elevated white blood cell count. There was no identifiable reason for the lactic acidemia on the last visit. There is no obvious source on this visit either. He has blood pressure is marginal. The patient cannot participate in the history or physical and no family members are present. Hospital Course Hospital Course: There was no obvious source of any sort of infectious process, but because he continued to have some intermittent fevers he was put on empiric antibiotics. Nothing ever grew out of any of his cultures, but he did have a cough 1 day that sounded pretty congested so we have been targeting her treatment towards a respiratory infection. I suspect that it was viral. However, given his frail condition we decided to continue antibiotics. We also gave him some IV fluids which he needed. He is been afebrile for a couple of days and so were just can continue with the course of third-generation oral cephalosporin. He will return to the facility from which he came. No other changes to his home medications. Labs and examination were reassuring and he was discharged in stable condition. Physical Exam Vital Signs: Temp Pulse Resp BP Pulse Ox 98.1 F 74 18 145/66 H 98 12/26/19 11:39 12/26/19 11:39 12/26/19 11:39 12/26/19 11:39 12/26/19 11:39 Intake & Output 12/25/19 12/26/19 12/27/19 06:59 06:59 06:59 Intake Total 4340 3842 1096 Output Total 1525 1700 Balance 2815 2142 1096 Weight 80.7 kg 81.3 kg General appearance: PRESENT: no acute distress, disheveled Respiratory exam: PRESENT: decreased breath sounds, symmetrical. ABSENT: accessory muscle use, chest wall tenderness, prolonged expiratory phas, retraction, rhonchi, tachypnea, wheezes Cardiovascular exam: PRESENT: RRR, +S1, +S2 Pulses: PRESENT: normal carotid pulses Vascular exam: PRESENT: normal capillary refill GI/Abdominal exam: PRESENT: normal bowel sounds, soft. ABSENT: distended, g uarding, rebound, tenderness Extremities exam: ABSENT: clubbing, pedal edema Musculoskeletal exam: PRESENT: normal inspection. ABSENT: deformity Neurological exam: PRESENT: awake, oriented to person Psychiatric exam: PRESENT: flat affect Skin exam: PRESENT: dry, warm Results Laboratory Results: WBC 7.1 10^3/uL (4.0-10.5) 12/21/19 02:25 RBC 3.56 10^6/uL (4.35-5.55) L 12/21/19 02:25 Hgb 11.1 g/dL (13.5-17.0) L 12/21/19 02:25 Hct 32.2 % (37.9-51.0) L 12/21/19 02:25 MCV 90 fl (80-97) 12/21/19 02:25 MCH 31.2 pg (27.0-33.4) 12/21/19 02:25 MCHC 34.5 g/dL (32.0-36.0) 12/21/19 02:25 RDW 13.8 % (11.5-14.0) 12/21/19 02:25 Plt Count 123 10^3/uL (150-450) L 12/21/19 02:25 Lymph % (Auto) 5.4 % (13-45) L 12/21/19 02:25 [place] % (Auto) 13.0 % (3-13) 12/21/19 02:25 Eos % (Auto) 0.6 % (0-6) 12/21/19 02:25 Baso % (Auto) 0.6 % (0-2) 12/21/19 02:25 Absolute Neuts (auto) 5.7 10^3/uL (1.7-8.2) 12/21/19 02:25 Absolute Lymphs (auto) 0.4 10^3/uL (0.5-4.7) L 12/21/19 02:25 Absolute Monos (auto) 0.9 10^3/uL (0.1-1.4) 12/21/19 02:25 Absolute Eos (auto) 0.0 10^3/uL (0.0-0.6) 12/21/19 02:25 Absolute Basos (auto) 0.0 10^3/uL (0.0-0.2) 12/21/19 02:25 Seg Neutrophils % 80.4 % (42-78) H 12/21/19 02:25 PT 14.3 SEC (11.4-15.4) 12/21/19 04:48 INR 1.11 12/21/19 04:48 VBG pH 7.31 (7.30-7.42) 12/21/19 02:25 VBG pCO2 54.5 mmHg (35-63) 12/21/19 02:25 VBG HCO3 26.8 mmol/L (20-32) 12/21/19 02:25 VBG Base Excess -0.2 mmol/L 12/21/19 02:25 Sodium 132.2 mmol/L (137-145) L 12/25/19 13:23 Potassium 4.0 mmol/L (3.6-5.0) 12/25/19 13:23 Chloride 98 mmol/L (98-107) 12/25/19 13:23 Carbon Dioxide 27 mmol/L (22-30) 12/25/19 13:23 Anion Gap 7 (5-19) 12/25/19 13:23 BUN 11 mg/dL (7-20) 12/25/19 13:23 Creatinine 0.67 mg/dL (0.52-1.25) 12/25/19 13:23 Est GFR ( Amer) > 60 (>60) 12/25/19 13:23 Est GFR (MDRD) Non-Af > 60 (>60) 12/25/19 13:23 Glucose 126 mg/dL (75-110) H 12/25/19 13:23 POC Glucose 106 mg/dL (70-110) 12/21/19 09:44 Lactic Acid 1.4 mmol/L (0.7-2.1) 12/21/19 08:40 Calcium 7.8 mg/dL (8.4-10.2) L 12/25/19 13:23 Total Bilirubin 0.5 mg/dL (0.2-1.3) 12/21/19 02:25 Direct Bilirubin 0.0 mg/dL (0.0-0.4) 12/21/19 02:25 Neonat Total Bilirubin Not Reportable 12/21/19 02:25 Neonat Direct Bilirubin Not Reportable 12/21/19 02:25 Neonat Indirect Bili Not Reportable 12/21/19 02:25 AST 32 U/L (17-59) 12/21/19 02:25 ALT 12 U/L (<50) 12/21/19 02:25 Alkaline Phosphatase 59 U/L (38-126) 12/21/19 02:25 Total Protein 6.6 g/dL (6.3-8.2) 12/21/19 02:25 Albumin 3.9 g/dL (3.5-5.0) 12/21/19 02:25 Cortisol AM Sample 24.60 ug/dL (4.46-22.7) H 12/21/19 02:25 Urine Color YELLOW 12/21/19 02:45 Urine Appearance SLIGHTLY-CLOUDY 12/21/19 02:45 Urine pH 6.0 (5.0-9.0) 12/21/19 02:45 Ur Specific [place] 1.019 12/21/19 02:45 Urine Protein 100 mg/dL (NEGATIVE) H 12/21/19 02:45 Urine Glucose (UA) NEGATIVE mg/dL (NEGATIVE) 12/21/19 02:45 Urine Ketones NEGATIVE mg/dL (NEGATIVE) 12/21/19 02:45 Urine Blood NEGATIVE (NEGATIVE) 12/21/19 02:45 Urine Nitrite Cancelled 12/21/19 02:45 Urine Nitrite (Reflex) NEGATIVE (NEGATIVE) 12/21/19 02:45 Urine Bilirubin NEGATIVE (NEGATIVE) 12/21/19 02:45 Urine Urobilinogen NEGATIVE mg/dL (<2.0) 12/21/19 02:45 Ur Leukocyte Esterase Cancelled 12/21/19 02:45 Leukocyte Esterase Rfl NEGATIVE (NEGATIVE) 12/21/19 02:45 Urine WBC (Auto) Cancelled 12/21/19 02:45 Urine RBC (Auto) 1 /HPF 12/21/19 02:45 U Hyaline Cast (Auto) 12 /LPF 12/21/19 02:45 Urine WBC (Reflex) 4 /HPF 12/21/19 02:45 Squamous Epi Cells Auto 1 /HPF 12/21/19 02:45 Urine Mucus (Auto) FEW /LPF 12/21/19 02:45 Urine Ascorbic Acid 40 (NEGATIVE) H 12/21/19 02:45 Time Trough Drawn 1737 12/25/19 17:37 Vancomycin Trough 13.3 ug/mL (5.0-20.0) 12/25/19 17:37 Influenza A (Rapid) NEGATIVE (NEGATIVE) 12/21/19 02:55 Influenza B (Rapid) NEGATIVE (NEGATIVE) 12/21/19 02:55 Impressions: Chest X-Ray 12/21/19 00:00 IMPRESSION: No acute cardiopulmonary process copyright 2011 [employer]- All Rights Reserved Plan Time Spent: Greater than 30 Minutes Stroke Is this a Stroke Patient?: No Acute Heart Failure - Is this a Heart Failure Patient?: No
[2019-12-26] MEDS: CEFPODOXIME 200 MG TABLET PO SCH (18:16)
[2019-12-26] MEDS: CITALOPRAM HYDROBROMIDE 20 MG TABLET PO SCH (22:20)
[2019-12-27] MEDS: HEPARIN SOD (PORCINE) 5,000 UNIT/ML 1 ML VIAL SUBCUT SCH ×2 (06:38→14:22)
[2019-12-27] MEDS: RISPERIDONE 1 MG TABLET PO SCH (09:52)
[2019-12-27] MEDS: MEMANTINE HCL 10 MG TABLET PO SCH (09:53)
[2019-12-27] MEDS: FOLIC ACID 1 MG TABLET PO SCH (09:53)
[2019-12-27] MEDS: CEFPODOXIME 200 MG TABLET PO SCH (09:53)
[2019-12-27] MEDS: FAMOTIDINE 20 MG TABLET PO SCH (09:54)
[2019-12-27 12:33] VITALS: BP 133/67
== END 2019-12-27 15:52 | DRG 865 ==
LOC: ER 01:43 → EH 06:20 → 3S 10:19 → 4N 12-23 00:05 → OBSVTOIN 12-23 16:02
PROVIDERS: ADMIT Hospitalist; ATTEND Family Medicine
DX: B34.9 Viral infection, unspecified (principal); G93.41 Metabolic encephalopathy; E87.1 Hypo-osmolality and hyponatremia; E87.5 Hyperkalemia; G30.8 Other Alzheimer's disease; F02.80 Dementia in other diseases classified elsewhere, unspecified severity, without behavioral disturbance, psychotic disturbance, mood disturbance, and anxiety; R74.0 Nonspecific elevation of levels of transaminase and lactic acid dehydrogenase [LDH]
CPT/HCPCS: 36415; 51701; 71045; 80048; 80053; 80202; 81001; 82533; 82803; 82962; 83605; 85025; 85610; 87040; 87077; 87150; 87186; 87804; 93005; 93010; 96361; 96365; 96367; 99285; G0378; J2543; J3370; J3490; J7030; J7040; J7050; J7060

== ENCOUNTER 2020-04-17 18:45 | Observation (INO) | payer MEDICARE, OTHER ==
[2020-04-17 19:31] LABS: ABSOLUTE BASOPHILS # (AUTO) 0.1 10^3/uL (0.0-0.2); ABSOLUTE EOSINOPHILS # (AUTO) 0.1 10^3/uL (0.0-0.6); ABSOLUTE LYMPHOCYTES (AUTO) 0.9 10^3/uL (0.5-4.7); ABSOLUTE MONOCYTES (AUTO) 0.9 10^3/uL (0.1-1.4); ABSOLUTE NEUT (AUTO) 8.7 10^3/uL (1.7-8.2); BASOPHILS % (AUTO) 0.7 % (0-2); EOSINOPHILS % (AUTO) 0.5 % (0-6); HEMATOCRIT 35.7 % (37.9-51.0); HEMOGLOBIN 11.8 g/dL (13.5-17.0); LYMPHOCYTES % (AUTO) 8.5 % (13-45); MEAN CORPUSCULAR HEMOGLOBIN 29.3 pg (27.0-33.4); MEAN CORPUSCULAR VOLUME 89 fl (80-97); MONOCYTES % (AUTO) 8.4 % (3-13); PLATELET COUNT 160 10^3/uL (150-450); RED BLOOD COUNT 4.03 10^6/uL (4.35-5.55); RED CELL DISTRIBUTION WIDTH 15.3 % (11.5-14.0); SEGMENTED NEUTROPHILS % (AUTO) 81.9 % (42-78); TOTAL CELLS COUNTED % (AUTO) 100 %; WHITE BLOOD COUNT 10.6 10^3/uL (4.0-10.5)
[2020-04-17 19:37] LABS: ALBUMIN 3.8 g/dL (3.5-5.0); ALKALINE PHOSPHATASE 70 U/L (38-126); ANION GAP 7 (5-19); ASPARTATE AMINO TRANSFERASE 24 U/L (17-59); BILIRUBIN,TOTAL 0.6 mg/dL (0.2-1.3); BLOOD UREA NITROGEN 21 mg/dL (7-20); CARBON DIOXIDE 26 mmol/L (22-30); CHLORIDE 102 mmol/L (98-107); GLUCOSE 147 mg/dL (75-110); POTASSIUM 4.7 mmol/L (3.6-5.0); TOTAL PROTEIN 7.3 g/dL (6.3-8.2)
[2020-04-17 19:41] LABS: INTERNATIONAL RATION (INR) 1.09; PROTHROMBIN TIME 14.2 SEC (11.4-15.4)
[2020-04-17 20:56] LABS: VENOUS BLOOD BASE EXCESS 1.2 mmol/L; VENOUS BLOOD HCO3 24.3 mmol/L (20-32); VENOUS BLOOD PCO2 33.5 mmHg (35-63); VENOUS BLOOD PH 7.48 (7.30-7.42)
[2020-04-17] MEDS ORDERED: KETOROLAC TROMETHAMINE INJ/PF 30 MG/1 ML SDV IV ONE (21:17)
--- NOTE | 2020-04-17 22:09 | EKG REPORT ---
SEVERITY:- OTHERWISE NORMAL ECG - SINUS RHYTHM ATRIAL PREMATURE COMPLEX BORDERLINE LEFT AXIS DEVIATION : Confirmed by: Denia Brasher MD 17-Apr-2020 22:09:17
[2020-04-17] MEDS ORDERED: NORMAL SALINE 500 ML IV ONE (23:02)
--- NOTE | 2020-04-17 23:05 | ER Document Report ---
ED Fever - General Chief Complaint: Fever Stated Complaint: FEVER Time Seen by Provider: 04/17/20 22:48 Primary Care Provider: BILLY SALVADOR MD [Primary Care Provider] - Follow up as needed Mode of Arrival: Medic Information source: Outside Facility Records Notes: Oct 2019 notes by Marjan GUERRERORO GUNTER is a 79 year old male who presented to the emergency room with a cutely altered mental status. Patient cannot contribute to the his care due to his acutely worsened dementia. Patient's family indicate that he has mild dementia and was last at his normal status in the afternoon of 11/06/2019. By that evening he was noted to have generalized weakness and be poorly responsive to his family members. EMS noted that he became conversant though confused during the transport to the ER. In the emergency room he was found to have an initial fever of 102 F with an initial lactic acid of 3.5 and a white blood count of 11,300. He was treated with Tylenol and IV fluid and his lactic acid dropped to 1.2 his temperature decreased to 98.1 and he became more conversant though his family feels that he is still not at his baseline. He was started on IV antibiotics of Zosyn and vancomycin in the emergency room on an empiric basis. He was subsequently admitted to the hospital for further evaluation and treatment. Past Medical History Past Medical History: Patient has dementia which has been worsened by his acute altered mental status. He is unable to provide information to his medical history therefore his past medical history, past surgical history, social history and family history are obtained from the best available reliable source at the time of my evaluation. Cardiac Medical History: Denies: Coronary Artery Disease, Myocardial Infarction, Hypertension Pulmonary Medical History: Denies: Asthma, Chronic Obstructive Pulmonary Disease (COPD) EENT Medical History: Reports: Cataracts Denies: Ears - Hearing aids Neurological Medical History: Denies: Hemorrhagic CVA, Ischemic CVA, Seizures Endocrine Medical History: Denies: Diabetes Mellitus Type 1, Diabetes Mellitus Type 2, Hyperthyroidism, Hypothyroidism Renal/ Medical History: Denies: Chronic Kidney Disease, Nephrolithiasis Malignancy Medical History: Reports: None GI Medical History: Denies: Cirrhosis, Crohn's Disease, Gastroesophageal Reflux Disease, Hepatitis, Hiatal Hernia, Peptic Ulcer Disease, Ulcerative Colitis Musculoskeltal Medical History: Denies: Arthritis, Gout Skin Medical History: Denies: Eczema, Psoriasis Psychiatric Medical History: Reports: Dementia Denies: Alcohol Dependency, Substance Abuse, Tobacco Dependency my notes 78-year-old male arrives by EMS from [facility] "and usually is slumped and communicates with yes or no and can be combative" according to staff there. "The last time he was there with a similar symptoms he had a UTI or sepsis." Patient not speaking while I was in room. He appears to be elderly ve ry demented white male with a prior medical history from electronic records of sepsis encephalopathy Sirs lactic acid increase chronic dementia hyperkalemia hyponatremia. TRAVEL OUTSIDE OF THE [place] IN LAST 30 DAYS: No - HPI Onset: Just prior to arrival Onset/Duration: Sudden Quality of pain: No pain Severity: None Pain Level: Denies - Related Data Allergies/Adverse Reactions: No Known Allergies Allergy (Verified 11/06/19 22:56) Home Medications: folic acid, namenda, asa,vit D, rispiradol, melatonin Past Medical History - General Information source: Emergency Med Personnel, Outside Facility Records - Social History Smoking Status: Unknown if Ever Smoked Cigarette use (# per day): No Chew tobacco use (# tins/day): No Smoking Education Provided: No Frequency of alcohol use: None Drug Abuse: None Lives with: [facility] Family History: Other - Dementia. denies: CAD, DM, Hypertension, Malignancy Patient has suicidal ideation: No Patient has homicidal ideation: No - Past Medical History Cardiac Medical History: Denies: Hx Coronary Artery Disease, Hx Heart Attack, Hx Hypertension Pulmonary Medical History: Denies: Hx Asthma, Hx COPD Neurological Medical History: Denies: Hx Cerebrovascular Accident, Hx Seizures Endocrine Medical History: Denies: Hx Diabetes Mellitus Type 1, Hx Diabetes Mellitus Type 2, Hx Hyperthyroidism, Hx Hypothyroidism GI Medical History: Denies: Hx Cirrhosis, Hx Crohn's Disease, Hx Gastroesophageal Reflux Disease, Hx Hepatitis, Hx Hiatal Hernia, Hx Ulcer, Hx Ulcerative Colitis Musculoskeletal Medical History: Denies Hx Arthritis, Denies Hx Gout Skin Medical History: Denies Hx Eczema, Denies Hx Psoriasis Psychiatric Medical History: Reports: Hx Dementia Infectious Medical History: Denies: Hx Hepatitis Past Surgical History: Reports: Hx Herniorrhaphy, Other - Bilateral cataract surgery, anal fissure surgery. Denies: Hx Open Heart Surgery, Hx Pacemaker - Immunizations Immunizations up to date: Yes Hx Diphtheria, Pertussis, Tetanus Vaccination: Yes Review of Systems - Review of Systems -: Yes ROS unobtainable due to patient's medical condition Constitutional: Fever EENT: No symptoms reported Cardiovascular: No symptoms reported Respiratory: No symptoms reported Gastrointestinal: No symptoms reported Genitourinary: No symptoms reported Male Genitourinary: No symptoms reported Skin: No symptoms reported - What Hematologic/Lymphatic: No symptoms reported Neurological/Psychological: No symptoms reported - A gallstone pancreatitis Physical Exam - Vital signs Vitals: Resp Pulse Ox 22 H 94 04/17/20 18:57 04/17/20 18:57 Interpretation: Hypotensive - General General appearance: Lethargic - HEENT Head: Normocephalic, Atraumatic Eyes: Normal Pupils: PERRL Pharynx: Normal Neck: Normal - Respiratory Respiratory status: No respiratory distress Chest status: Nontender Breath sounds: Normal Chest palpation: Normal - Cardiovascular Rhythm: Regular Heart sounds: Normal auscultation Murmur: No - Abdominal Inspection: Normal - Rectal Hemorrhoids: Other - deferred - Genitourinary Scrotum: Other - deferred - Back Back: Normal - Extremities General upper extremity: Normal inspection General lower extremity: Normal inspection - Neurological Neuro grossly intact: No Cognition: Inattentive - Psychological Associated symptoms: Uncooperative - Skin Skin Temperature: Warm Skin Moisture: Dry Course - Vital Signs Vital signs: Temp Pulse Resp BP Pulse Ox 98.9 F 15 104/51 L 97 04/17/20 22:41 04/17/20 22:01 04/17/20 22:00 04/17/20 22:01 - Laboratory Result Diagrams: 04/17/20 19:00 04/17/20 19:00 Laboratory results interpreted by me: 04/17/20 04/17/20 04/17/20 19:00 19:00 20:10 WBC 10.6 H RBC 4.03 L Hgb 11.8 L Hct 35.7 L RDW 15.3 H Lymph % (Auto) 8.5 L Absolute Neuts (auto) 8.7 H Seg Neutrophils % 81.9 H VBG pH 7.48 H VBG pCO2 33.5 L Sodium 135.3 L BUN 21 H Glucose 147 H Urine Protein Urine Blood Urine Nitrite Ur Leukocyte Esterase 04/18/20 00:40 WBC RBC Hgb Hct RDW Lymph % (Auto) Absolute Neuts (auto) Seg Neutrophils % VBG pH VBG pCO2 Sodium BUN Glucose Urine Protein 30 H Urine Blood MODERATE H Urine Nitrite POSITIVE H Ur Leukocyte Esterase LARGE H - Diagnostic Test Radiology reviewed: Reports reviewed Critical Care Note - Critical Care Note Total time excluding time spent on procedures (mins): 90 Comments: I discussed this case with Dr. Olivera at 0110 and he advises IMCU with a COVID- 19 test Discharge - Discharge Clinical Impression: Sepsis Qualifiers: Sepsis type: sepsis due to unspecified organism Sepsis acute organ dysfunction status: unspecified Qualified Code(s): A41.9 - Sepsis, unspecified organism Altered mental status Qualifiers: Altered mental status type: unspecified Qualified Code(s): R41.82 - Altered mental status, unspecified UTI (urinary tract infection) Qualifiers: Urinary tract infection type: site unspecified Hematuria presence: without hematuria Qualified Code(s): N39.0 - Urinary tract infection, site not specified Disposition: ADMITTED INPATIENT Admitting Provider: Joselin (Hospitalist) Unit Admitted: IMCU - Dr. Godfrey Referrals: BILLY SALVADOR MD [Primary Care Provider] - Follow up as needed
[2020-04-18 00:54] LABS: APPEARANCE,URINE CLOUDY; BILIRUBIN,URINE NEGATIVE (NEGATIVE); COLOR,URINE YELLOW; GLUCOSE, URINE NEGATIVE (NEGATIVE); KETONES,URINE NEGATIVE (NEGATIVE); LEUKOCYTE ESTERASE,URINE LARGE (NEGATIVE); NITRITE,URINE POSITIVE (NEGATIVE); PROTEIN,URINE 30 mg/dL (NEGATIVE); URINE SPECIFIC GRAVITY 1.008; UROBILINOGEN,URINE NEGATIVE mg/dL (<2.0)
[2020-04-18] MEDS ORDERED: VANCOMYCIN HCL INJ 1000 MG VIAL IV ONE (01:09)
[2020-04-18] MEDS ORDERED: PIPERACILLIN/TAZOBACTAM 3.375 GM VIAL IV ONE ×2 (01:10→03:02)
[2020-04-18] MEDS ORDERED: ONDANSETRON HCL INJ/PF 4 MG/2 ML SDV IV PRN (01:54)
[2020-04-18] MEDS ORDERED: MAGNESIUM HYDROXIDE SUSP 30 ML UDCUP PO PRN (01:54)
[2020-04-18] MEDS ORDERED: IPRATROPIUM/ALBUTEROL 0.5-2.5 MG/3 ML AMPUL NEB PRN (01:54)
[2020-04-18] MEDS ORDERED: PROMETHAZINE HCL INJ 25 MG/1 ML VIAL IV PRN (01:54)
[2020-04-18] MEDS ORDERED: ACETAMINOPHEN 325 MG TABLET PO PRN ×2 (01:54→16:24)
[2020-04-18] MEDS ORDERED: NORMAL SALINE 1000 ML 1,000 ML IV PRN (01:54)
--- NOTE | 2020-04-18 02:36 | PDOC H&P ---
History of Present Illness Admission Date/PCP: 04/18/20 01:36 BILLY SALVADOR MD History of Present Illness: LESLY JOY is a 79 year old male past medical history of severe dementia is bedbound and nonverbal except for yes and no, who is a resident of [facility] brought into ED from change in mental status and fever. As per my conversation with Mrs. Elin Joy patient has severe dementia and has been living at [facility] since October. Prior to October patient was more co mmunicative and verbal but since then he has declined significantly. Mrs. Monk states that she was told by the [facility], and that Mr. Menon had a fever and therefore was sent to the hospital. As per Mrs. Menon patient is bedbound, nonverbal and noncommunicative however able to eat with assistance. Patient has had similar symptoms in the past which had been attributed to UTI/sepsis. On my encounter patient looks frail does not respond to any verbal stimuli, withdraws to painful stimuli and moves all 4 extremities spontaneously. Unfortunately due to profound dementia patient does not provide much to his history. No family member present in the room. In ED he was noted to have mild leukocytosis, UA was positive for large leukocyte esterase, EKG sinus rhythm with atrial premature complexes. Patient was started on empiric broad-spectrum IV antibiotics, IV fluids and hospitalist consulted for admission. Review of papers brought from [facility] shows that patient is full code. Based on my conversation with Mrs. Menon he has a well but she was not sure about his CODE STATUS. She would like him to remain full code while she discusses CODE STATUS with her family. Past Medical History Cardiac Medical History: Denies: Coronary Artery Disease, Myocardial Infarction, Hypertension Pulmonary Medical History: Denies: Asthma, Chronic Obstructive Pulmonary Disease (COPD) Neurological Medical History: Denies: Seizures Endocrine Medical History: Denies: Diabetes Mellitus Type 1, Diabetes Mellitus Type 2, Hyperthyroidism, Hypothyroidism GI Medical History: Denies: Cirrhosis, Crohn's Disease, Gastroesophageal Reflux Disease, Hepatitis, Hiatal Hernia, Ulcerative Colitis Musculoskeltal Medical History: Denies: Arthritis, Gout Skin Medical History: Denies: Eczema, Psoriasis Psychiatric Medical History: Reports: Dementia Hematology: Denies: Anemia, Sickle Cell Disease, Bleeding Tendencies Past Surgical History Past Surgical History: Reports: Herniorrhaphy, Other - Bilateral cataract surgery, anal fissure surgery Denies: Pacemaker Social History Lives with: [facility] Smoking Status: Unknown if Ever Smoked Frequency of Alcohol Use: None Hx Recreational Drug Use: No Drugs: None Hx Prescription Drug Abuse: No Family History Family History: Other - Dementia. denies: CAD, DM, Hypertension, Malignancy Parental Family History Reviewed: Yes Children Family History Reviewed: Yes Sibling(s) Family History Reviewed.: Yes Medication/Allergy Home Medications: Folic Acid 1 mg PO DAILY 11/06/19 Memantine HCl 5 mg PO DAILY 11/06/19 Risperidone [Risperdal 1 mg Tablet] 0.5 mg PO Q12 11/06/19 Azelastine HCl 1 spray NASL Q12 12/21/19 Cyanocobalamin (Vitamin B-12) [B-12] 1,000 mcg PO DAILY 12/21/19 Ergocalciferol (Vitamin D2) [Ergocal] 5,000 unit PO MO@1000 12/21/19 Cefpodoxime Proxetil [Vantin 200 Mg Tablet] 200 mg PO BID #10 tablet 12/26/19 Allergies/Adverse Reactions: No Known Allergies Allergy (Verified 11/06/19 22:56) Review of Systems ROS unobtainable: Due to mental status Physical Exam Vital Signs: Temp Pulse Resp BP Pulse Ox 98.9 F 20 102/57 L 97 04/17/20 22:41 04/18/20 01:01 04/18/20 01:00 04/18/20 01:01 Intake & Output 04/16/20 04/17/20 04/18/20 06:59 06:59 06:59 Intake Total 500 Balance 500 Weight 70.5 kg General appearance: PRESENT: no acute distress, thin Head exam: PRESENT: atraumatic, normocephalic Respiratory exam: PRESENT: clear to auscultation maco. ABSENT: rales, rhonchi, wheezes Cardiovascular exam: PRESENT: RRR. ABSENT: diastolic murmur, rubs, systolic murmur GI/Abdominal exam: PRESENT: normal bowel sounds, soft. ABSENT: distended, guarding, mass, organolmegaly, rebound, tenderness Neurological exam: PRESENT: other - Withdraws to painful stimuli. Skin exam: PRESENT: dry, intact, warm, other - Stage II decubitus ulcer.. ABSENT: cyanosis, rash Adult Front & Back Image: 1 - Stage II decubitus ulcer. Results Laboratory Results: 04/17/20 19:00 04/17/20 19:00 04/17/20 04/17/20 04/17/20 19:00 19:00 19:00 WBC 10.6 H RBC 4.03 L Hgb 11.8 L Hct 35.7 L MCV 89 MCH 29.3 MCHC 33.0 RDW 15.3 H Plt Count 160 Seg Neutrophils % 81.9 H VBG pH VBG pCO2 VBG HCO3 VBG Base Excess Sodium 135.3 L Potassium 4.7 Chloride 102 Carbon Dioxide 26 Anion Gap 7 BUN 21 H Creatinine 0.83 Est GFR ( Amer) > 60 Glucose 147 H Lactic Acid 1.7 Calcium 9.0 Total Bilirubin 0.6 AST 24 Alkaline Phosphatase 70 Total Protein 7.3 Albumin 3.8 Urine Color Urine Appearance Urine pH Ur Specific Buckner Urine Protein Urine Glucose (UA) Urine Ketones Urine Blood Urine Nitrite Ur Leukocyte Esterase Urine WBC (Auto) Urine RBC (Auto) 04/17/20 04/18/20 04/18/20 20:10 00:39 00:40 WBC RBC Hgb Hct MCV MCH MCHC RDW Plt Count Seg Neutrophils % VBG pH 7.48 H VBG pCO2 33.5 L VBG HCO3 24.3 VBG Base Excess 1.2 Sodium Potassium Chloride Carbon Dioxide Anion Gap BUN Creatinine Est GFR ( Amer) Glucose Lactic Acid 1.2 Calcium Total Bilirubin AST Alkaline Phosphatase Total Protein Albumin Urine Color YELLOW Urine Appearance CLOUDY Urine pH 6.0 Ur Specific Buckner 1.008 Urine Protein 30 H Urine Glucose (UA) NEGATIVE Urine Ketones NEGATIVE Urine Blood MODERATE H Urine Nitrite POSITIVE H Ur Leukocyte Esterase LARGE H Urine WBC (Auto) >182 Urine RBC (Auto) 5 Assessment and Plan - Diagnosis (1) SIRS (systemic inflammatory response syndrome) Is this a current diagnosis for this admission?: Yes Plan: Presented with fever, hypotension, acute mild leukocytosis. Likely due to underlying infectious process. Broad-spectrum. IV antibiotics. Urine and blood culture. Given the fact [facility] and presenting with fever will screen for COVID-19. (2) UTI (urinary tract infection) Qualifiers: Urinary tract infection type: site unspecified Hematuria presence: without hematuria Qualified Code(s): N39.0 - Urinary tract infection, site not specified Is this a current diagnosis for this admission?: Yes Plan: Likely due to gram-negative rods including E. coli. Broad-spectrum IV antibiotics. Follow-up urine and blood culture. (3) Acute metabolic encephalopathy Is this a current diagnosis for this admission?: Yes Plan: At baseline patient is profoundly demented and nonverbal and bedbound. He only answers yes or no occasionally. Likely due to underlying urinary tract infection. Treat underlying atelectasis. Monitor electrolytes, monitor vitals. Replace electrolytes as needed. (4) Stage II decubitus ulcer Qualifiers: Pressure injury location: buttock Laterality: right Qualified Code(s): L89.312 - Pressure ulcer of right buttock, stage 2 Is this a current diagnosis for this admission?: Yes Plan: Stage III decubitus ulcer. No sign of infection. Continue wound care. Decubitus ulcer precaution. (5) Dementia Qualifiers: Dementia type: Alzheimer's disease Is this a current diagnosis for this admission?: Yes Plan: History of severe dementia. Resume home meds. Supportive measures.
[2020-04-18] MEDS ORDERED: DEXTROSE 50%-WATER SYRINGE 25 GM/50 ML DOSE IV PRN (07:00)
[2020-04-18] MEDS ORDERED: DEXTROSE 40% GEL 15 GM TUBE PO PRN (07:00)
[2020-04-18] MEDS ORDERED: DEXTROSE 50%-WATER SYRINGE 12.5 GM/25 ML DOSE IV PRN (07:00)
[2020-04-18] MEDS ORDERED: DEXTROSE 40% GEL 15 GM TUBE X 2 PO PRN (07:00)
[2020-04-18] MEDS ORDERED: GLUCAGON,HUMAN RECOMB 1 MG INJ IM PRN (07:00)
[2020-04-18 07:53] LABS: APPEARANCE,URINE TURBID; BILIRUBIN,URINE NEGATIVE (NEGATIVE); COLOR,URINE YELLOW; GLUCOSE, URINE NEGATIVE (NEGATIVE); KETONES,URINE NEGATIVE (NEGATIVE); PROTEIN,URINE 100 mg/dL (NEGATIVE); URINE SPECIFIC GRAVITY 1.013; UROBILINOGEN,URINE NEGATIVE mg/dL (<2.0)
--- NOTE | 2020-04-18 08:01 | RADIOLOGY REPORT (SQ) ---
EXAM DESCRIPTION: CHEST SINGLE VIEW IMAGES COMPLETED DATE/TIME: 04/18/2020 12:30 am REASON FOR STUDY: fever COMPARISON: Chest films 12/21/2019, 11/06/2019 EXAM PARAMETERS: NUMBER OF VIEWS: One view. TECHNIQUE: Single frontal radiographic view of the chest acquired. RADIATION DOSE: NA LIMITATIONS: None. FINDINGS: LUNGS AND PLEURA: No opacities, masses or pneumothorax. No pleural effusion. MEDIASTINUM AND HILAR STRUCTURES: No masses. Contour normal. HEART AND VASCULAR STRUCTURES: Heart normal in size. Normal vasculature. BONES: No acute findings. HARDWARE: None in the chest. OTHER: No other significant finding. IMPRESSION: NO ACUTE RADIOGRAPHIC FINDING IN THE CHEST. TECHNICAL DOCUMENTATION: JOB ID: [id number] 2010 [employer]- All Rights Reserved Reading location - IP/workstation name: [email or web address]
[2020-04-18] MEDS: INSULIN LISPRO 100 UNIT/ML 3 ML VIAL SUBCUT SCH ×4 (08:39→21:25)
[2020-04-18] MEDS: CEFTRIAXONE 1 GM/D5W RTU 1 GM/50 ML RTUPB IV SCH (11:08)
[2020-04-18] MEDS: ENOXAPARIN SODIUM INJ 40 MG/0.4 ML DISP.SYRIN SUBCUT SCH (11:08)
[2020-04-18] MEDS: DOCUSATE SODIUM 100 MG CAPSULE PO SCH (11:09)
[2020-04-18] MEDS: FAMOTIDINE INJ/PF 20 MG/2 ML SDV IV SCH ×2 (11:09→21:07)
[2020-04-18] MEDS ORDERED: MELATONIN 3 MG TABLET PO PRN (16:16)
[2020-04-18] MEDS ORDERED: HYDRALAZINE HCL INJ/PF 20 MG/1 ML SDV IV PRN (16:19)
[2020-04-18] MEDS ORDERED: IBUPROFEN 600 MG TABLET PO PRN (16:23)
--- NOTE | 2020-04-18 16:33 | Progress Note ---
Provider Note Provider Note: The patient is a 79 year old male with a past medical history of advanced dementia, bedbound at baseline, what was admitted early this morning for fever with increased lethargy. At baseline, patient will say yes or no, but is otherwise nonverbal. He was found to have a UTI. He was placed on IV Rocephin and referred to the hospitalist service for admission. H&P, overnight events, Vital signs, lab reports, imaging studies, and orders reviewed. Agree with the plan of care as established by the previous provider. In addition, have increased tylenol availability and added ibuprofen do to continued elevated temperatures. Have added IV hydralazine prn and amlodipine daily for blood pressure control. Spoke with the patient's , Martell Joy, by phone to provide update.
[2020-04-18] MEDS: RISPERIDONE 0.25 MG TABLET PO SCH (21:08)
[2020-04-19 05:15] LABS: ABSOLUTE EOSINOPHILS # (AUTO) 0.1 10^3/uL (0.0-0.6); ABSOLUTE LYMPHOCYTES (AUTO) 0.9 10^3/uL (0.5-4.7); ABSOLUTE NEUT (AUTO) 4.5 10^3/uL (1.7-8.2); BASOPHILS % (AUTO) 0.5 % (0-2); EOSINOPHILS % (AUTO) 1.7 % (0-6); HEMATOCRIT 28.7 % (37.9-51.0); LYMPHOCYTES % (AUTO) 13.5 % (13-45); MEAN CORPUSCULAR HEMOGLOBIN 29.7 pg (27.0-33.4); MEAN CORPUSCULAR HGB CONC 33.6 g/dL (32.0-36.0); MEAN CORPUSCULAR VOLUME 89 fl (80-97); MONOCYTES % (AUTO) 15.2 % (3-13); PLATELET COUNT 109 10^3/uL (150-450); RED BLOOD COUNT 3.24 10^6/uL (4.35-5.55); RED CELL DISTRIBUTION WIDTH 14.8 % (11.5-14.0); SEGMENTED NEUTROPHILS % (AUTO) 69.1 % (42-78); TOTAL CELLS COUNTED % (AUTO) 100 %; WHITE BLOOD COUNT 6.5 10^3/uL (4.0-10.5)
[2020-04-19 05:16] LABS: HEMOGLOBIN 9.6 g/dL (13.5-17.0)
[2020-04-19 05:35] LABS: ALBUMIN 2.5 g/dL (3.5-5.0); ALKALINE PHOSPHATASE 47 U/L (38-126); ASPARTATE AMINO TRANSFERASE 21 U/L (17-59); BILIRUBIN,TOTAL 0.4 mg/dL (0.2-1.3); BLOOD UREA NITROGEN 16 mg/dL (7-20); CALCIUM 8.2 mg/dL (8.4-10.2); CARBON DIOXIDE 26 mmol/L (22-30); CHLORIDE 108 mmol/L (98-107); GLUCOSE 113 mg/dL (75-110); POTASSIUM 4.1 mmol/L (3.6-5.0); TOTAL PROTEIN 5.4 g/dL (6.3-8.2)
[2020-04-19 05:37] LABS: ANION GAP 2 (5-19)
[2020-04-19] MEDS: INSULIN LISPRO 100 UNIT/ML 3 ML VIAL SUBCUT SCH ×4 (08:36→22:10)
[2020-04-19] MEDS: ASPIRIN 81 MG TABLET, ENT COATED PO SCH (09:18)
[2020-04-19] MEDS: RISPERIDONE 0.25 MG TABLET PO SCH ×2 (09:18→22:10)
[2020-04-19] MEDS: FOLIC ACID 1 MG TABLET PO SCH (09:18)
[2020-04-19] MEDS: CEFTRIAXONE 1 GM/D5W RTU 1 GM/50 ML RTUPB IV SCH (09:19)
[2020-04-19] MEDS: FAMOTIDINE INJ/PF 20 MG/2 ML SDV IV SCH ×2 (09:19→22:10)
[2020-04-19] MEDS: CYANOCOBALAMIN (VITAMIN B-12) 1,000 MCG TABLET PO SCH (09:19)
[2020-04-19] MEDS: AMLODIPINE BESYLATE 5 MG TABLET PO SCH (09:19)
[2020-04-19] MEDS: ENOXAPARIN SODIUM INJ 40 MG/0.4 ML DISP.SYRIN SUBCUT SCH (09:20)
[2020-04-19] MEDS: DOCUSATE SODIUM 100 MG CAPSULE PO SCH (09:37)
--- NOTE | 2020-04-19 11:59 | PDOC PROGRESS REPORT ---
Subjective Progress Note for:: 04/19/20 Subjective:: The patient is a 79 year old male with a past medical history of advanced dementia, bedbound at baseline, what was admitted early this morning for fever with increased lethargy. He was found to have a UTI. Patient was seen on morning rounds. He was found sitting up in bed, comfortably, on room air. He just finished his breakfast. When asked how he was doing, he responded "fine." He did answer all other questions and followed some simple directions. He denies all symptoms at this time by shaking his head no; specifically asked about fever, chest pain, difficulty breathing, abdominal pain, nausea. ROS is somewhat limited due to baseline mentation and communication. He appears comfortable is not noted to be in any acute distress. No concerns per nursing. Reason For Visit: UTI,AMS Physical Exam Vital Signs: Temp Pulse Resp BP Pulse Ox 97.7 F 65 14 108/58 L 97 04/19/20 08:09 04/19/20 09:00 04/19/20 09:00 04/19/20 08:09 04/19/20 09:00 Intake & Output 04/18/20 04/19/20 04/20/20 06:59 06:59 06:59 Intake Total 633 1067 Output Total 1400 Balance 633 -333 Weight 70.5 kg 70.5 kg General appearance: PRESENT: no acute distress, cooperative, thin, well- developed Head exam: PRESENT: atraumatic, normocephalic Eye exam: PRESENT: conjunctiva pink, EOMI, PERRLA. ABSENT: scleral icterus Mouth exam: PRESENT: moist, tongue midline Respiratory exam: PRESENT: clear to auscultation maco, symmetrical, unlabored. ABSENT: rales, rhonchi, wheezes Cardiovascular exam: PRESENT: RRR. ABSENT: diastolic murmur, rubs, systolic murmur Pulses: PRESENT: normal dorsalis pedis pul Extremities exam: PRESENT: full ROM. ABSENT: calf tenderness, clubbing, pedal edema Neurological exam: PRESENT: alert, awake, oriented to person, CN II-XII grossly intact. ABSENT: motor sensory deficit Psychiatric exam: PRESENT: appropriate affect, normal mood. ABSENT: homicidal ideation, suicidal ideation Skin exam: PRESENT: dry, warm. ABSENT: cyanosis, intact - Stage II decubitus ulcer, rash Results Laboratory Results: 04/19/20 04:50 04/19/20 04:50 04/19/20 04/19/20 04:50 04:50 WBC 6.5 RBC 3.24 L Hgb 9.6 L D Hct 28.7 L MCV 89 MCH 29.7 MCHC 33.6 RDW 14.8 H Plt Count 109 L Seg Neutrophils % 69.1 Sodium 135.9 L Potassium 4.1 Chloride 108 H Carbon Dioxide 26 Anion Gap 2 L BUN 16 Creatinine 0.90 Est GFR ( Amer) > 60 Glucose 113 H Calcium 8.2 L Total Bilirubin 0.4 AST 21 Alkaline Phosphatase 47 Total Protein 5.4 L Albumin 2.5 L Impressions: Chest X-Ray 04/17/20 23:40 IMPRESSION: NO ACUTE RADIOGRAPHIC FINDING IN THE CHEST. Assessment and Plan - Diagnosis (1) UTI (urinary tract infection) Qualifiers: Urinary tract infection type: site unspecified Hematuria presence: without hematuria Qualified Code(s): N39.0 - Urinary tract infection, site not specified Is this a current diagnosis for this admission?: Yes Plan: Blood cultures have no growth to date. Urine cultures pending. Likely due to gram-negative rods including E. coli. Patient is downgraded to the medical floor today. Continues on IV Rocephin; day #2. Encourage p.o. fluids. Remove Melendrez catheter. (2) Acute metabolic encephalopathy Is this a current diagnosis for this admission?: Yes Plan: Resolved; now at baseline mentation. At baseline patient is profoundly demented and nonverbal and bedbound. He only answers yes or no occasionally. Likely due to underlying urinary tract infection. Supportive care. Fall precautions. Assist with meals. (3) Dementia Qualifiers: Dementia type: Alzheimer's disease Is this a current diagnosis for this admission?: Yes Plan: History of severe dementia. Continue home medication regiment. Supportive care. (4) Sepsis Qualifiers: Sepsis type: sepsis due to unspecified organism Sepsis acute organ dysfunction status: unspecified Qualified Code(s): A41.9 - Sepsis, unspecified organism Is this a current diagnosis for this admission?: Yes Plan: Resolved. Secondary to urinary tract infection, present on arrival, evidenced by fever, tachycardia, tachypnea, leukocytosis, altered mental status and UTI by urinalysis. Blood cultures have no growth to date. Urine cultures pending. Antibiotics as above. (5) Stage II decubitus ulcer Qualifiers: Pressure injury location: buttock Laterality: right Qualified Code(s): L89.312 - Pressure ulcer of right buttock, stage 2 Is this a current diagnosis for this admission?: Yes Plan: Stage III decubitus ulcer. No sign of infection. Continue wound care. Decubitus ulcer precaution. (6) Fever Qualifiers: Fever type: unspecified Qualified Code(s): R50.9 - Fever, unspecified Is this a current diagnosis for this admission?: Yes Plan: Tmax 102.9/24 hrs. Secondary to #1 COVID negative. - Time Time Spent with patient: 25-34 minutes Medications reviewed and adjusted accordingly: Yes Anticipated discharge: Home Within: within 24 hours - if remains afebrile.
[2020-04-19] MEDS: NORMAL SALINE 1000 ML 1,000 ML IV PRN ×2 (12:28→23:17)
[2020-04-20 05:37] LABS: HEMATOCRIT 31.4 % (37.9-51.0); HEMOGLOBIN 10.6 g/dL (13.5-17.0); MEAN CORPUSCULAR HEMOGLOBIN 29.5 pg (27.0-33.4); MEAN CORPUSCULAR HGB CONC 33.7 g/dL (32.0-36.0); MEAN CORPUSCULAR VOLUME 88 fl (80-97); PLATELET COUNT 129 10^3/uL (150-450); RED BLOOD COUNT 3.58 10^6/uL (4.35-5.55); RED CELL DISTRIBUTION WIDTH 14.9 % (11.5-14.0); WHITE BLOOD COUNT 5.8 10^3/uL (4.0-10.5)
[2020-04-20 06:04] LABS: ANION GAP 6 (5-19); BLOOD UREA NITROGEN 15 mg/dL (7-20); CALCIUM 8.4 mg/dL (8.4-10.2); CARBON DIOXIDE 26 mmol/L (22-30); CHLORIDE 105 mmol/L (98-107); GLUCOSE 114 mg/dL (75-110); POTASSIUM 3.9 mmol/L (3.6-5.0)
[2020-04-20] MEDS: INSULIN LISPRO 100 UNIT/ML 3 ML VIAL SUBCUT SCH ×2 (08:36→12:28)
[2020-04-20] MEDS: NORMAL SALINE 1000 ML 1,000 ML IV PRN (10:05)
[2020-04-20] MEDS: CEFTRIAXONE 1 GM/D5W RTU 1 GM/50 ML RTUPB IV SCH (10:06)
[2020-04-20] MEDS: CYANOCOBALAMIN (VITAMIN B-12) 1,000 MCG TABLET PO SCH (10:07)
[2020-04-20] MEDS: FOLIC ACID 1 MG TABLET PO SCH (10:07)
[2020-04-20] MEDS: DOCUSATE SODIUM 100 MG CAPSULE PO SCH (10:07)
[2020-04-20] MEDS: RISPERIDONE 0.25 MG TABLET PO SCH (10:07)
[2020-04-20] MEDS: FAMOTIDINE INJ/PF 20 MG/2 ML SDV IV SCH (10:07)
[2020-04-20] MEDS: ASPIRIN 81 MG TABLET, ENT COATED PO SCH (10:07)
[2020-04-20] MEDS: ENOXAPARIN SODIUM INJ 40 MG/0.4 ML DISP.SYRIN SUBCUT SCH (10:07)
[2020-04-20] MEDS: AMLODIPINE BESYLATE 5 MG TABLET PO SCH (10:08)
[2020-04-20 11:18] VITALS: BP 98/60
--- NOTE | 2020-04-20 12:33 | PDOC TRANSFER SUMMARY ---
Impression - Admit/DC Date/PCP Admission Date/Primary Care Provider: 04/18/20 01:36 BILLY SALVADOR MD Discharge Date: 04/20/20 - Discharge Diagnosis (1) UTI (urinary tract infection) Is this a current diagnosis for this admission?: Yes (2) Acute metabolic encephalopathy Is this a current diagnosis for this admission?: Yes (3) Dementia Is this a current diagnosis for this admission?: Yes (4) Sepsis Is this a current diagnosis for this admission?: Yes (5) Stage II decubitus ulcer Is this a current diagnosis for this admission?: Yes (6) Fever Is this a current diagnosis for this admission?: Yes - Additional Information Discharge Diet: Diabetic Discharge Activity: Activity As Tolerated, Balance Activity w/Rest, Supervised Activity Referrals: BILLY SALVADOR MD [Primary Care Provider] - Follow up as needed Prescriptions: Cefuroxime Axetil [Ceftin 250 mg Tablet] 1 tab PO BID #20 tablet Amlodipine Besylate [Norvasc 5 mg Tablet] 5 mg PO DAILY #30 tablet Home Medications: Folic Acid 1 mg PO DAILY 11/06/19 Memantine HCl 5 mg PO DAILY 11/06/19 Azelastine HCl 1 spray NASL Q12 12/21/19 Cyanocobalamin (Vitamin B-12) [B-12] 1,000 mcg PO DAILY 12/21/19 Ergocalciferol (Vitamin D2) [Ergocal] 5,000 unit PO SA@1000 12/21/19 Aspirin [Ecotrin 81 mg EC Tablet] 81 mg PO DAILY 04/18/20 Melatonin [Melatonin 3 mg Tablet] 3 mg PO HSP PRN 04/18/20 Risperidone [Risperdal 0.25 mg Tablet] 0.25 mg PO Q12 04/18/20 Acetaminophen [Tylenol 325 mg Tablet] 650 mg PO Q4HP PRN tablet 04/20/20 Amlodipine Besylate [Norvasc 5 mg Tablet] 5 mg PO DAILY #30 tablet 04/20/20 Cefuroxime Axetil [Ceftin 250 mg Tablet] 1 tab PO BID #20 tablet 04/20/20 Docusate Sodium [Colace 100 mg Capsule] 100 mg PO DAILY capsule 04/20/20 History of Present Illiness History of Present Illness: Per H&P by Dr. Olivera: LESLY JOY is a 79 year old male past medical history of severe dementia is bedbound and nonverbal except for yes and no, who is a resident of [facility] brought into ED from change in mental status and fever. As per my conversation with Mrs. Elin Joy patient has severe dementia and has been living at [facility] since October. Prior to October patient was more communicative and verbal but since then he has declined significantly. Mrs. Monk states that she was told by the sidman, and that Mr. Menon had a fever and therefore was sent to the hospital. As per Mrs. Menon patient is bedbound, nonverbal and noncommunicative however able to eat with assistance. Patient has had similar symptoms in the past which had been attributed to UTI/sepsis. On my encounter patient looks frail does not respond to any verbal stimuli, withdraws to painful stimuli and moves all 4 extremities spontaneously. Unfortunately due to profound dementia patient does not provide much to his history. No family member present in the room. In ED he was noted to have mild leukocytosis, UA was positive for large leukocyte esterase, EKG sinus rhythm with atrial premature complexes. Patient was started on empiric broad-spectrum IV antibiotics, IV fluids and hospitalist consulted for admission. Review of papers brought from [facility] shows that patient is full code. Based on my conversation with Mrs. Menon he has a well but she was not sure about his CODE STATUS. She would like him to remain full code while she discusses CODE STATUS with her family. Hospital Course Hospital Course: (1) UTI (urinary tract infection) Blood cultures have no growth to date. Urine cultures show pansensitive E. coli. Patient was initially admitted to [facility] on continuous cardiac telemetry; improved and was able to downgraded to be medical floor. He was empirically placed on IV Rocephin; received 3 days of Rocephin. Encourage p.o. fluids. Remove Melendrez catheter. He is discharged on Ceftin to complete his course of antibiotic therapy. (2) Acute metabolic encephalopathy Resolved; now at baseline mentation. At baseline patient is profoundly demented and nonverbal and bedbound. He only answers yes or no occasionally. Likely due to underlying urinary tract infection. Supportive care. Fall precautions. Assist with meals. (3) Dementia History of severe dementia. Continue home medication regiment. Supportive care. (4) Sepsis Resolved. Secondary to urinary tract infection, present on arrival, evidenced by fever, tachycardia, tachypnea, leukocytosis, altered mental status and UTI by urinalysis. Blood cultures have no growth to date. Urine cultures pending. Antibiotics as above. (5) Stage II decubitus ulcer Stage II decubitus ulcer. No sign of infection. Continue wound care. Decubitus ulcer precaution. (6) Fever Afebrile x48 hrs Secondary to #1 COVID negative. Physical Exam Vital Signs: Temp Pulse Resp BP Pulse Ox 98.1 F 64 17 98/60 L 99 04/20/20 11:16 04/20/20 11:16 04/20/20 11:16 04/20/20 11:16 04/20/20 11:16 Intake & Output 04/19/20 04/20/20 04/21/20 06:59 06:59 06:59 Intake Total 1067 2166 1230 Output Total 1400 1735 Balance -403 298 0765 Weight 70.5 kg 71.2 kg General appearance: PRESENT: no acute distress, cooperative, thin, well- developed, well-nourished Head exam: PRESENT: atraumatic, normocephalic Eye exam: PRESENT: conjunctiva pink, EOMI, PERRLA. ABSENT: scleral icterus Mouth exam: PRESENT: moist, tongue midline Respiratory exam: PRESENT: clear to auscultation maco, symmetrical, unlabored, other - Room air. ABSENT: rales, rhonchi, wheezes Cardiovascular exam: PRESENT: RRR. ABSENT: diastolic murmur, rubs, systolic murmur Vascular exam: PRESENT: normal capillary refill GI/Abdominal exam: PRESENT: normal bowel sounds, soft. ABSENT: distended, guarding, mass, organolmegaly, rebound, tenderness Rectal exam: PRESENT: deferred Extremities exam: PRESENT: full ROM. ABSENT: calf tenderness, clubbing, pedal edema Neurological exam: PRESENT: alert, awake, CN II-XII grossly intact. ABSENT: motor sensory deficit Psychiatric exam: PRESENT: appropriate affect, normal mood. ABSENT: homicidal ideation, suicidal ideation Skin exam: PRESENT: dry, warm, other - Stage II decubitus ulcer. ABSENT: cyanosis, intact, rash Results Laboratory Results: WBC 5.8 10^3/uL (4.0-10.5) 04/20/20 04:22 RBC 3.58 10^6/uL (4.35-5.55) L 04/20/20 04:22 Hgb 10.6 g/dL (13.5-17.0) L 04/20/20 04:22 Hct 31.4 % (37.9-51.0) L 04/20/20 04:22 MCV 88 fl (80-97) 04/20/20 04:22 MCH 29.5 pg (27.0-33.4) 04/20/20 04:22 MCHC 33.7 g/dL (32.0-36.0) 04/20/20 04:22 RDW 14.9 % (11.5-14.0) H 04/20/20 04:22 Plt Count 129 10^3/uL (150-450) L 04/20/20 04:22 Lymph % (Auto) 13.5 % (13-45) 04/19/20 04:50 [place] % (Auto) 15.2 % (3-13) H 04/19/20 04:50 Eos % (Auto) 1.7 % (0-6) 04/19/20 04:50 Baso % (Auto) 0.5 % (0-2) 04/19/20 04:50 Absolute Neuts (auto) 4.5 10^3/uL (1.7-8.2) 04/19/20 04:50 Absolute Lymphs (auto) 0.9 10^3/uL (0.5-4.7) 04/19/20 04:50 Absolute Monos (auto) 1.0 10^3/uL (0.1-1.4) 04/19/20 04:50 Absolute Eos (auto) 0.1 10^3/uL (0.0-0.6) 04/19/20 04:50 Absolute Basos (auto) 0.0 10^3/uL (0.0-0.2) 04/19/20 04:50 Seg Neutrophils % 69.1 % (42-78) 04/19/20 04:50 PT 14.2 SEC (11.4-15.4) 04/17/20 19:00 INR 1.09 04/17/20 19:00 VBG pH 7.48 (7.30-7.42) H 04/17/20 20:10 VBG pCO2 33.5 mmHg (35-63) L 04/17/20 20:10 VBG HCO3 24.3 mmol/L (20-32) 04/17/20 20:10 VBG Base Excess 1.2 mmol/L 04/17/20 20:10 Sodium 136.5 mmol/L (137-145) L 04/20/20 04:22 Potassium 3.9 mmol/L (3.6-5.0) 04/20/20 04:22 Chloride 105 mmol/L (98-107) 04/20/20 04:22 Carbon Dioxide 26 mmol/L (22-30) 04/20/20 04:22 Anion Gap 6 (5-19) 04/20/20 04:22 BUN 15 mg/dL (7-20) 04/20/20 04:22 Creatinine 0.79 mg/dL (0.52-1.25) 04/20/20 04:22 Est GFR ( Amer) > 60 (>60) 04/20/20 04:22 Est GFR (MDRD) Non-Af > 60 (>60) 04/20/20 04:22 Glucose 114 mg/dL (75-110) H 04/20/20 04:22 POC Glucose 130 mg/dL (70-110) H 04/20/20 07:33 Lactic Acid 0.8 mmol/L (0.7-2.1) 04/18/20 03:06 Calcium 8.4 mg/dL (8.4-10.2) 04/20/20 04:22 Total Bilirubin 0.4 mg/dL (0.2-1.3) 04/19/20 04:50 Direct Bilirubin 0.0 mg/dL (0.0-0.4) 04/19/20 04:50 Neonat Total Bilirubin Not Reportable 04/19/20 04:50 Neonat Direct Bilirubin Not Reportable 04/19/20 04:50 Neonat Indirect Bili Not Reportable 04/19/20 04:50 AST 21 U/L (17-59) 04/19/20 04:50 ALT 6 U/L (<50) 04/19/20 04:50 Alkaline Phosphatase 47 U/L (38-126) 04/19/20 04:50 Total Protein 5.4 g/dL (6.3-8.2) L 04/19/20 04:50 Albumin 2.5 g/dL (3.5-5.0) L 04/19/20 04:50 Urine Color YELLOW 04/18/20 04:45 Urine Appearance TURBID 04/18/20 04:45 Urine pH 6.0 (5.0-9.0) 04/18/20 04:45 Ur Specific [place] 1.013 04/18/20 04:45 Urine Protein 100 mg/dL (NEGATIVE) H 04/18/20 04:45 Urine Glucose (UA) NEGATIVE mg/dL (NEGATIVE) 04/18/20 04:45 Urine Ketones NEGATIVE mg/dL (NEGATIVE) 04/18/20 04:45 Urine Blood SMALL (NEGATIVE) H 04/18/20 04:45 Urine Nitrite POSITIVE (NEGATIVE) H 04/18/20 00:40 Urine Nitrite (Reflex) POSITIVE (NEGATIVE) H 04/18/20 04:45 Urine Bilirubin NEGATIVE (NEGATIVE) 04/18/20 04:45 Urine Urobilinogen NEGATIVE mg/dL (<2.0) 04/18/20 04:45 Ur Leukocyte Esterase LARGE (NEGATIVE) H 04/18/20 00:40 Leukocyte Esterase Rfl MODERATE (NEGATIVE) H 04/18/20 04:45 Urine WBC (Auto) >182 /HPF 04/18/20 00:40 Urine RBC (Auto) 36 /HPF 04/18/20 04:45 Urine Bacteria (Auto) 3+ /HPF 04/18/20 04:45 Urine WBC (Reflex) > 182 /HPF 04/18/20 04:45 Urine WBC Clumps MANY /HPF 04/18/20 04:45 Squamous Epi Cells Auto 1 /HPF 04/18/20 00:40 Urine Ascorbic Acid NEGATIVE (NEGATIVE) 04/18/20 04:45 COVID-19 Source NASOPHARYNGEAL 04/18/20 05:17 COVID-19 (MELISA) NOT DETECTED 04/18/20 05:17 Impressions: Chest X-Ray 04/17/20 23:40 IMPRESSION: NO ACUTE RADIOGRAPHIC FINDING IN THE CHEST. Plan Plan of Treatment: Patient is discharged to [facility], where he is a long-term resident. He is provided a prescription for amlodipine and Ceftin to complete his course of antibiotics. Recommend assistance with meals and hydration. Return to the emergency department as needed for concerning symptoms. Time Spent: Greater than 30 Minutes Stroke Is this a Stroke Patient?: No Acute Heart Failure - Is this a Heart Failure Patient?: No
== END 2020-04-20 13:00 ==
LOC: ER 18:45 → INTOOBSV 04-18 01:36 → EH 04-18 01:36 → 3S 04-18 02:28 → 3N 04-18 04:41 → 3W 04-19 07:33
PROVIDERS: ADMIT Internal Medicine; ATTEND Registered Nurse
DX: N39.0 Urinary tract infection, site not specified (principal); A41.51 Sepsis due to Escherichia coli [E. coli]; G93.41 Metabolic encephalopathy; G30.9 Alzheimer's disease, unspecified; F02.80 Dementia in other diseases classified elsewhere, unspecified severity, without behavioral disturbance, psychotic disturbance, mood disturbance, and anxiety; R50.9 Fever, unspecified; L89.312 Pressure ulcer of right buttock, stage 2; J98.11 Atelectasis; Z74.01 Bed confinement status; Z03.818 Encounter for observation for suspected exposure to other biological agents ruled out; Z79.82 Long term (current) use of aspirin; Z79.899 Other long term (current) drug therapy
CPT/HCPCS: 93005; 99291; 99292; 96361; 96374; 36415 ×4; 87040; 87086; 82962 ×3; 83605 ×2; 85025 ×2; 85027; 85610; 87088; 80048; 80053 ×2; 81001; 87186; 82803; 71045; 93010; U0003; A9270 ×13; J1885; J1650; J7030 ×3; J7040; J3370; S0028 ×3; J0696 ×3; J2543; C9803; 87635; J1815; J3490

== ENCOUNTER 2020-05-02 21:38 | Inpatient (IN) | payer MEDICARE, OTHER ==
[2020-05-02 22:33] LABS: VENOUS BLOOD BASE EXCESS 1.2 mmol/L; VENOUS BLOOD HCO3 26.6 mmol/L (20-32); VENOUS BLOOD PCO2 45.5 mmHg (35-63); VENOUS BLOOD PH 7.39 (7.30-7.42)
[2020-05-02 22:46] LABS: ALBUMIN 2.4 g/dL (3.5-5.0); ALKALINE PHOSPHATASE 51 U/L (38-126); ANION GAP 5 (5-19); ASPARTATE AMINO TRANSFERASE 22 U/L (17-59); BILIRUBIN,TOTAL 0.5 mg/dL (0.2-1.3); BLOOD UREA NITROGEN 26 mg/dL (7-20); CALCIUM 8.2 mg/dL (8.4-10.2); CARBON DIOXIDE 27 mmol/L (22-30); CHLORIDE 104 mmol/L (98-107); GLUCOSE 168 mg/dL (75-110); TOTAL PROTEIN 5.5 g/dL (6.3-8.2)
[2020-05-02 23:00] LABS: HEMATOCRIT 29.6 % (37.9-51.0); HEMOGLOBIN 9.7 g/dL (13.5-17.0); MEAN CORPUSCULAR HEMOGLOBIN 28.8 pg (27.0-33.4); MEAN CORPUSCULAR HGB CONC 32.9 g/dL (32.0-36.0); MEAN CORPUSCULAR VOLUME 88 fl (80-97); PLATELET COUNT 223 10^3/uL (150-450); RED BLOOD COUNT 3.38 10^6/uL (4.35-5.55); RED CELL DISTRIBUTION WIDTH 14.6 % (11.5-14.0); WHITE BLOOD COUNT 14.1 10^3/uL (4.0-10.5)
[2020-05-02 23:01] LABS: INTERNATIONAL RATION (INR) 1.18; PROTHROMBIN TIME 15.1 SEC (11.4-15.4)
[2020-05-02] MEDS: NORMAL SALINE 1000 ML 1,000 ML IV PRN (23:30)
[2020-05-02 23:52] LABS: PLATELET COMMENT ADEQUATE
[2020-05-02 23:59] LABS: ABSOLUTE LYMPHOCYTES# (MANUAL) 0.3 10^3/uL (0.5-4.7); ABSOLUTE MONOCYTES # (MANUAL) 0.4 10^3/uL (0.1-1.4); ANISOCYTOSIS SLIGHT; BASOPHILS % (MANUAL) 0 % (0-2); EOSINOPHILS % (MANUAL) 1 % (0-6); LYMPHOCYTES % (MANUAL) 2 % (13-45); MONOCYTES % (MANUAL) 3 % (3-13); SEGMENTED NEUTROPHILS % (MAN) 94 % (42-78); TOTAL CELLS COUNTED 100
[2020-05-02 23:59] LABS: APPEARANCE,URINE SLIGHTLY-CLOUDY; BILIRUBIN,URINE NEGATIVE (NEGATIVE); COLOR,URINE YELLOW; GLUCOSE, URINE NEGATIVE (NEGATIVE); KETONES,URINE NEGATIVE (NEGATIVE); PROTEIN,URINE 30 mg/dL (NEGATIVE); URINE SPECIFIC GRAVITY 1.021; UROBILINOGEN,URINE NEGATIVE mg/dL (<2.0)
[2020-05-03] MEDS: NORMAL SALINE 1000 ML 1,000 ML IV PRN (00:05)
--- NOTE | 2020-05-03 00:43 | RADIOLOGY REPORT (SQ) ---
XR CHEST 1 VIEW HISTORY: Fever, AMS. COMPARISON: 04/17/2020 FINDINGS: The heart size is within normal limits. There is no pulmonary vascular congestion. No consolidation, pleural effusion, or pneumothorax is seen. The bony structures are preserved. IMPRESSION: No evidence of acute cardiopulmonary disease.
[2020-05-03 01:41] LABS: C DIFFICILE GDH NEGATIVE (NEGATIVE)
--- NOTE | 2020-05-03 01:48 | ER Document Report ---
ED General - General TRAVEL OUTSIDE OF THE [place] IN LAST 30 DAYS: No <SHERRY DAVILA - Last Filed: 05/03/20 01:56> <LES FIGUEROA IV - Last Filed: 05/03/20 04:20> - General Chief Complaint: Altered Mental Status Stated Complaint: DECREASE IN MENTAL STATUS Time Seen by Provider: 05/02/20 23:26 - HPI Notes: Patient is an 80-year-old male sent from the group home for evaluation of altered mental status and fever. Evidently has had a fever for the last 3 days. He normally can say yes or no, but he has a history of dementia. Staff noted that he seemed to be altered, and his fever was 102.2. He was given Tylenol and sent here for further evaluation. The patient is nonverbal entirely with me. He cannot offer me no meaningful history. The remainder of the information in this medical history is obtained from group home notes and recent H&P. The lyndsay martinez was hospitalized with urosepsis at the beginning of the month. He had grown a pansensitive E. coli in his urine. (SHERRY DAVILA) - Related Data Allergies/Adverse Reactions: No Known Allergies Allergy (Verified 11/06/19 22:56) Past Medical History - General Information source: [facility] Records, Outside Facility Records - Social History Smoking Status: Unknown if Ever Smoked Family History: Other - Dementia. denies: CAD, DM, Hypertension, Malignancy - Past Medical History Cardiac Medical History: Reports: Hx Hypertension Denies: Hx Coronary Artery Disease, Hx Heart Attack Pulmonary Medical History: Denies: Hx Asthma, Hx COPD Neurological Medical History: Denies: Hx Cerebrovascular Accident, Hx Seizures Endocrine Medical History: Denies: Hx Diabetes Mellitus Type 1, Hx Diabetes Mellitus Type 2, Hx Hyperthyroidism, Hx Hypothyroidism GI Medical History: Denies: Hx Cirrhosis, Hx Crohn's Disease, Hx Gastroesophageal Reflux Disease, Hx Hepatitis, Hx Hiatal Hernia, Hx Ulcer, Hx Ulcerative Colitis Musculoskeletal Medical History: Denies Hx Arthritis, Denies Hx Gout Skin Medical History: Denies Hx Eczema, Denies Hx Psoriasis Psychiatric Medical History: Reports: Hx Dementia Denies: Hx Depression Infectious Medical History: Denies: Hx Hepatitis Past Surgical History: Reports: Hx Herniorrhaphy, Other - Bilateral cataract surgery, anal fissure surgery. Denies: Hx Open Heart Surgery, Hx Pacemaker - Immunizations Immunizations up to date: Yes Hx Diphtheria, Pertussis, Tetanus Vaccination: Yes <SHERRY DAVILA - Last Filed: 05/03/20 01:56> Review of Systems - Review of Systems -: Yes ROS unobtainable due to patient's medical condition - Severe dementia <SHERRY DAVILA - Last Filed: 05/03/20 01:56> Physical Exam <SHERRY DAVILA - Last Filed: 05/03/20 01:56> - Vital signs Vitals: Temp 99.2 F 05/02/20 21:39 - Notes Notes: This is a frail, contracted, chronically ill-appearing 80-year-old male, no acute distress. He is lying in the left lateral decubitus position. Vital signs reviewed, please refer to chart. Head is normocephalic, atraumatic. Pupils equal round, reactive to light. Neck is supple without meningismus. Heart is regular rate and rhythm. Lungs are clear to auscultation bilaterally. Abdomen is soft, nontender, normoactive bowel sounds throughout. Extremities without cyanosis, clubbing. He has a stage I sacral decubitus ulcer, with a small amount of skin breakdown noted. Patient's eyes are open spontaneously, but he is completely nonverbal, will not follow commands. He has no gross facial asymmetry. (SHERRY DAVILA) Course - Laboratory Result Diagrams: 05/02/20 22:15 05/02/20 22:15 - Diagnostic Test Radiology reviewed: Image reviewed, Reports reviewed <SHERRY DAVILA - Last Filed: 05/03/20 01:56> - Laboratory Result Diagrams: 05/02/20 22:15 05/02/20 22:15 <LES FIGUEROA IV - Last Filed: 05/03/20 04:20> - Re-evaluation Re-evalutation: 05/03/20 01:48 Patient presents to the emergency department for evaluation. He was recently hospitalized. The patient has a fever. He was given IV fluids. He had cultures ordered. He was placed on a monitor. His blood pressures are unremarkable at this time. Laboratory investigations revealed leukocytosis. He had a large amount of diarrhea while here, his stool were sent for C. difficile and it was found to be toxin positive. Awaiting confirmatory testing, but I do suspect this is the etiology of his fever. Lab suspects it was well. He is given 2 L of normal saline to cover for sepsis bolus. Will contact medicine for further discussion of possible admission. 05/03/20 01:58 Dr. Morris, overnight hospitalist, will come and evaluate the patient for appropriate level of care and status of admission. (SHERRY DAVILA) - Vital Signs Vital signs: Temp Pulse Resp BP Pulse Ox 99.8 F 19 119/47 L 99 05/02/20 23:46 05/03/20 02:01 05/03/20 02:00 05/03/20 02:00 - Laboratory Laboratory results interpreted by me: 05/02/20 05/02/20 05/02/20 22:15 22:15 23:14 WBC 14.1 H RBC 3.38 L Hgb 9.7 L Hct 29.6 L RDW 14.6 H Seg Neuts % (Manual) 94 H Lymphocytes % (Manual) 2 L Abs Neuts (Manual) 13.3 H Abs Lymphs (Manual) 0.3 L Sodium 136.0 L BUN 26 H Glucose 168 H Calcium 8.2 L Total Protein 5.5 L Albumin 2.4 L Urine Protein 30 H Urine Blood SMALL H - Diagnostic Test Radiology results interpreted by me: 05/03/20 01:52 Chest X-Ray 05/02/20 23:27 IMPRESSION: No evidence of acute cardiopulmonary disease. (SHERRY DAVILA) - EKG Interpretation by Me Additional EKG results interpreted by me: 05/03/20 01:52 Sinus mechanism with a rate of 86 bpm. Normal axis and intervals. No acute ST changes concerning for ischemia or infarction. (SHERRY DAVILA) Discharge <SHERRY DAVILA - Last Filed: 05/03/20 01:56> - Discharge Admitting Provider: Alexandra (Hospitalist) Unit Admitted: Telemetry <LES FIGUEROA IV - Last Filed: 05/03/20 04:20> - Discharge Clinical Impression: Clostridium difficile colitis Sepsis Qualifiers: Sepsis type: sepsis due to unspecified organism Sepsis acute organ dysfunction status: without acute organ dysfunction Qualified Code(s): A41.9 - Sepsis, unspecified organism Condition: Stable Disposition: ADMITTED INPATIENT
[2020-05-03] MEDS ORDERED: NORMAL SALINE 1000 ML 1,000 ML IV PRN (01:49)
[2020-05-03] MEDS ORDERED: VANCOMYCIN HCL INJ 500 MG VIAL PO ONE (01:51)
--- NOTE | 2020-05-03 03:09 | PDOC H&P ---
History of Present Illness Admission Date/PCP: BILLY SALVADOR MD History of Present Illness: LESLY GUNTER is a 80 year old male with a history of profound dementia who is unable to provide any history whatsoever. He was recently discharged from this hospital where he was treated for a urinary tract infection and sent home on Ceftin. He lives at [facility] and apparently had been having a fever for several days but had a change in his mental status today. His dementia is so profound I cannot tell how they would notice a change in his status. He did have a leukocytosis and had a lot of diarrhea here. I do not know if there were any reports of diarrhea at [facility]. He tested positive for C. difficile. Past Medical History Cardiac Medical History: Reports: Hypertension Denies: Coronary Artery Disease, Myocardial Infarction Pulmonary Medical History: Denies: Asthma, Chronic Obstructive Pulmonary Disease (COPD) Neurological Medical History: Denies: Seizures Endocrine Medical History: Denies: Diabetes Mellitus Type 1, Diabetes Mellitus Type 2, Hyperthyroidism, Hypothyroidism GI Medical History: Denies: Cirrhosis, Crohn's Disease, Gastroesophageal Reflux Disease, Hepatitis, Hiatal Hernia, Ulcerative Colitis Musculoskeltal Medical History: Denies: Arthritis, Gout Skin Medical History: Denies: Eczema, Psoriasis Psychiatric Medical History: Reports: Dementia Denies: Depression Hematology: Denies: Anemia, Sickle Cell Disease, Bleeding Tendencies Past Surgical History Past Surgical History: Reports: Herniorrhaphy, Other - Bilateral cataract surgery, anal fissure surgery Denies: Pacemaker Social History Smoking Status: Unknown if Ever Smoked Frequency of Alcohol Use: None Hx Recreational Drug Use: No Drugs: None Hx Prescription Drug Abuse: No Family History Family History: Other - Dementia. denies: CAD, DM, Hypertension, Malignancy Parental Family History Reviewed: No - Unable to obtain from patient Children Family History Reviewed: No - Unable to obtain from patient Sibling(s) Family History Reviewed.: No - Unable to obtain from patient Medication/Allergy Home Medications: Folic Acid 1 mg PO DAILY 11/06/19 Memantine HCl 5 mg PO DAILY 11/06/19 Azelastine HCl 1 spray NASL Q12 12/21/19 Cyanocobalamin (Vitamin B-12) [B-12] 1,000 mcg PO DAILY 12/21/19 Ergocalciferol (Vitamin D2) [Ergocal] 5,000 unit PO SA@1000 03/07/20 Aspirin [Ecotrin 81 mg EC Tablet] 81 mg PO DAILY 04/18/20 Melatonin [Melatonin 3 mg Tablet] 3 mg PO HSP PRN 04/18/20 Risperidone [Risperdal 0.25 mg Tablet] 0.25 mg PO Q12 04/18/20 Acetaminophen [Tylenol 325 mg Tablet] 650 mg PO Q4HP PRN tablet 04/20/20 Amlodipine Besylate [Norvasc 5 mg Tablet] 5 mg PO DAILY #30 tablet 04/20/20 Cefuroxime Axetil [Ceftin 250 mg Tablet] 1 tab PO BID #20 tablet 04/20/20 Docusate Sodium [Colace 100 mg Capsule] 100 mg PO DAILY capsule 04/20/20 Allergies/Adverse Reactions: No Known Allergies Allergy (Verified 11/06/19 22:56) Review of Systems ROS unobtainable: Due to mental status Physical Exam Vital Signs: Temp Pulse Resp BP Pulse Ox 99.8 F 19 119/47 L 99 05/02/20 23:46 05/03/20 02:01 05/03/20 02:00 05/03/20 02:00 Intake & Output 05/01/20 05/02/20 05/03/20 06:59 06:59 06:59 Intake Total 1999 Balance 1999 Weight 69 kg General appearance: PRESENT: no acute distress, disheveled, other - He is lying in bed with the head of the bed propped up, his hips and knees flexed with his heels pulled up close to his buttocks and rotated over to the left side, his chin tucked down towards his chest, his eyes open but he is nonverbal and unresponsive Head exam: PRESENT: atraumatic Eye exam: ABSENT: conjunctival injection, nystagmus, scleral icterus Ear exam: PRESENT: normal external ear exam Neck exam: ABSENT: carotid bruit, JVD, lymphadenopathy, tenderness, thyromegaly Respiratory exam: PRESENT: clear to auscultation maco, symmetrical, unlabored. ABSENT: accessory muscle use, chest wall tenderness, crackles, prolonged expiratory phas, rhonchi, tachypnea, wheezes Cardiovascular exam: PRESENT: RRR, +S1, +S2 Pulses: PRESENT: normal carotid pulses Vascular exam: PRESENT: normal capillary refill GI/Abdominal exam: PRESENT: hyperactive bowel sounds, soft, other - He had a large amount of foul-smelling liquid stool in his diaper. ABSENT: distended, guarding, rebound, tenderness Extremities exam: PRESENT: other - Pressure ulcer on his left heel, pressure ulcers on his buttocks. ABSENT: clubbing, pedal edema Musculoskeletal exam: PRESENT: normal inspection. ABSENT: deformity Neurological exam: PRESENT: awake, aphasic. ABSENT: oriented to person, oriented to place, oriented to situation Psychiatric exam: PRESENT: flat affect Skin exam: PRESENT: dry, warm Results Laboratory Results: 05/02/20 22:15 05/02/20 22:15 05/02/20 05/02/20 05/02/20 22:15 22:15 22:15 WBC 14.1 H RBC 3.38 L Hgb 9.7 L Hct 29.6 L MCV 88 MCH 28.8 MCHC 32.9 RDW 14.6 H Plt Count 223 Seg Neutrophils % Not Reportable VBG pH 7.39 VBG pCO2 45.5 VBG HCO3 26.6 VBG Base Excess 1.2 Sodium 136.0 L Potassium 4.0 Chloride 104 Carbon Dioxide 27 Anion Gap 5 BUN 26 H Creatinine 0.91 Est GFR ( Amer) > 60 Glucose 168 H Lactic Acid Calcium 8.2 L Total Bilirubin 0.5 AST 22 Alkaline Phosphatase 51 Total Protein 5.5 L Albumin 2.4 L Urine Color Urine Appearance Urine pH Ur Specific [place] Urine Protein Urine Glucose (UA) Urine Ketones Urine Blood Urine RBC (Auto) Stl C.difficile Tox PCR 05/02/20 05/02/20 05/02/20 22:15 23:14 23:38 WBC RBC Hgb Hct MCV MCH MCHC RDW Plt Count Seg Neutrophils % VBG pH VBG pCO2 VBG HCO3 VBG Base Excess Sodium Potassium Chloride Carbon Dioxide Anion Gap BUN Creatinine Est GFR ( Amer) Glucose Lactic Acid 1.2 Calcium Total Bilirubin AST Alkaline Phosphatase Total Protein Albumin Urine Color YELLOW Urine Appearance SLIGHTLY-CLOUDY Urine pH 5.0 Ur Specific [place] 1.021 Urine Protein 30 H Urine Glucose (UA) NEGATIVE Urine Ketones NEGATIVE Urine Blood SMALL H Urine RBC (Auto) 1 Stl C.difficile Tox PCR POSITIVE Impressions: Chest X-Ray 05/02/20 23:27 IMPRESSION: No evidence of acute cardiopulmonary disease. Assessment and Plan - Diagnosis (1) Clostridium difficile colitis Is this a current diagnosis for this admission?: Yes Plan: P.o. vancomycin every 6 hours. Probiotic supplement twice a day. Colace obviously being held. Gently hydrating him. Monitoring his electrolytes. (2) Sepsis Qualifiers: Sepsis type: sepsis due to unspecified organism Sepsis acute organ dysfunction status: without acute organ dysfunction Qualified Code(s): A41.9 - Sepsis, unspecified organism Is this a current diagnosis for this admission?: Yes Plan: Due to his C. difficile colitis. Treatment as previously noted (3) Chronic dementia without behavioral disturbance Is this a current diagnosis for this admission?: Yes Plan: Continue home medications and supportive care. Right now it seems like his CODE STATUS was full code but when he was in the hospital previously it looks like his was going to talk with the family about his CODE STATUS. I would stro ngly encourage following up with the family about this man's CODE STATUS because he is an extremely poor condition. (4) Stage II decubitus ulcer Qualifiers: Pressure injury location: buttock Laterality: right Qualified Code(s): L89.312 - Pressure ulcer of right buttock, stage 2 Is this a current diagnosis for this admission?: Yes Plan: Local wound care, turn every 2 hours, offloading measures - Time Time Spent with patient: 35 or more minutes Anticipated discharge: Other Within: Other - Inpatient Certification Based on my medical assessment, after consideration of the patient's comorbidities, presenting symptoms, or acuity I expect that the services needed warrant INPATIENT care.: Yes I certify that my determination is in accordance with my understanding of Medicare's requirements for reasonable and necessary INPATIENT services [42 CFR 412.3e].: Yes Medical Necessity: Significant Comorbidiites Make Outpatient Treatment Too Risky, Need Close Monitoring Due to Risk of Patient Decompensation, Need For IV Fluids, Need For Continuous Telemetry Monitoring, Risk of Complication if Not Cared For in Hospital
[2020-05-03] MEDS: RINGERS SOLUTION,LACTATED 1,000 ML IV PRN ×2 (04:12→14:13)
[2020-05-03] MEDS: HEPARIN SOD (PORCINE) 5,000 UNIT/ML 1 ML VIAL SUBCUT SCH ×3 (06:20→21:12)
[2020-05-03] MEDS: VANCOMYCIN HCL INJ 500 MG VIAL PO SCH ×3 (06:20→17:45)
--- NOTE | 2020-05-03 08:43 | EKG REPORT ---
SEVERITY:- NORMAL ECG - SINUS RHYTHM : Confirmed by: John Lambert MD 03-May-2020 08:42:41
[2020-05-03] MEDS: LACTOBACILLUS ACIDOPHILUS 250 MG TAB PO SCH ×2 (09:07→17:45)
[2020-05-03] MEDS ORDERED: MELATONIN 3 MG TABLET PO PRN (14:12)
--- NOTE | 2020-05-03 14:19 | PDOC PROGRESS REPORT ---
Subjective Progress Note for:: 05/03/20 Subjective:: The patient is an 80-year-old male with a past medical history significant for advanced dementia and hypertension who was recently discharged from our facility after treatment for urinary tract infection and readmitted 05/03/2020 with C. difficile diarrhea. Patient is seen on morning rounds. He is found resting in bed, comfortably, on supplemental oxygen at 1 L/min. He is sleeping soundly and does not wake when I say his name. Per nursing, the patient was awakened shortly earlier this morning and was able to nod his head yes or no and answer to questions. They report moderate p.o. intake at breakfast. ROS is limited secondary to mental status and acute illness. He does appear to be comfortable and is not noted to be in any acute distress at this time. No concerns per nursing. Reason For Visit: SEPSIS, C. DIFFICILE COLITIS Physical Exam Vital Signs: Temp Pulse Resp BP Pulse Ox 99.6 F 84 28 H 116/51 L 97 05/03/20 11:43 05/03/20 11:43 05/03/20 11:43 05/03/20 11:43 05/03/20 11:43 Intake & Output 05/02/20 05/03/20 05/04/20 06:59 06:59 06:59 Intake Total 1999 Balance 1999 Weight 71.2 kg General appearance: PRESENT: no acute distress, well-developed, other - Chronically ill-appearing Head exam: PRESENT: atraumatic, normocephalic Mouth exam: PRESENT: moist, tongue midline Respiratory exam: PRESENT: clear to auscultation maco, symmetrical, unlabored, other - Supplemental oxygen by nasal cannula. ABSENT: rales, rhonchi, wheezes Cardiovascular exam: PRESENT: RRR. ABSENT: diastolic murmur, rubs, systolic murmur Pulses: PRESENT: normal dorsalis pedis pul Vascular exam: PRESENT: normal capillary refill GI/Abdominal exam: PRESENT: hyperactive bowel sounds, soft. ABSENT: distended, guarding, mass, organolmegaly, rebound, tenderness Rectal exam: PRESENT: deferred Extremities exam: ABSENT: calf tenderness, clubbing, pedal edema Neurological exam: PRESENT: CN II-XII grossly intact, other - Sleeping soundly. Oriented to self; answers yes or no questions at baseline.. ABSENT: motor sensory deficit Skin exam: PRESENT: dry, intact, pallor, warm. ABSENT: cyanosis, rash Results Laboratory Results: 05/02/20 22:15 05/02/20 22:15 05/02/20 05/02/20 05/02/20 22:15 22:15 22:15 WBC 14.1 H RBC 3.38 L Hgb 9.7 L Hct 29.6 L MCV 88 MCH 28.8 MCHC 32.9 RDW 14.6 H Plt Count 223 Seg Neutrophils % Not Reportable VBG pH 7.39 VBG pCO2 45.5 VBG HCO3 26.6 VBG Base Excess 1.2 Sodium 136.0 L Potassium 4.0 Chloride 104 Carbon Dioxide 27 Anion Gap 5 BUN 26 H Creatinine 0.91 Est GFR ( Amer) > 60 Glucose 168 H Lactic Acid Calcium 8.2 L Total Bilirubin 0.5 AST 22 Alkaline Phosphatase 51 Total Protein 5.5 L Albumin 2.4 L Urine Color Urine Appearance Urine pH Ur Specific [place] Urine Protein Urine Glucose (UA) Urine Ketones Urine Blood Urine RBC (Auto) Stl C.difficile Tox PCR 05/02/20 05/02/20 05/02/20 22:15 23:14 23:38 WBC RBC Hgb Hct MCV MCH MCHC RDW Plt Count Seg Neutrophils % VBG pH VBG pCO2 VBG HCO3 VBG Base Excess Sodium Potassium Chloride Carbon Dioxide Anion Gap BUN Creatinine Est GFR ( Amer) Glucose Lactic Acid 1.2 Calcium Total Bilirubin AST Alkaline Phosphatase Total Protein Albumin Urine Color YELLOW Urine Appearance SLIGHTLY-CLOUDY Urine pH 5.0 Ur Specific [place] 1.021 Urine Protein 30 H Urine Glucose (UA) NEGATIVE Urine Ketones NEGATIVE Urine Blood SMALL H Urine RBC (Auto) 1 Stl C.difficile Tox PCR POSITIVE Impressions: Chest X-Ray 05/02/20 23:27 IMPRESSION: No evidence of acute cardiopulmonary disease. Assessment and Plan - Diagnosis (1) Clostridium difficile colitis Is this a current diagnosis for this admission?: Yes Plan: Patient is admitted to the medical floor on continuous cardiac telemetry. He is provided gentle IV fluids. Continue p.o. vancomycin every 6 hours. Continue probiotic supplement twice a day. Monitor electrolytes and replace as needed. (2) Sepsis Qualifiers: Sepsis type: sepsis due to unspecified organism Sepsis acute organ dysfunction status: without acute organ dysfunction Qualified Code(s): A41.9 - Sepsis, unspecified organism Is this a current diagnosis for this admission?: Yes Plan: Due to his C. difficile colitis. Treatment as previously noted (3) Hypertension Is this a current diagnosis for this admission?: Yes Plan: Home dose amlodipine. (4) Stage II decubitus ulcer Qualifiers: Pressure injury location: buttock Laterality: right Qualified Code(s): L89.312 - Pressure ulcer of right buttock, stage 2 Is this a current diagnosis for this admission?: Yes Plan: Local wound care, turn every 2 hours, offloading measures (5) Chronic dementia without behavioral disturbance Is this a current diagnosis for this admission?: Yes Plan: Continue home medications and supportive care. When he was in the hospital previously it looks like his was going to talk with the family about his CODE STATUS. Currently FULL CODE. Will follow up with family. - Time Time Spent with patient: 15-24 minutes Medications reviewed and adjusted accordingly: Yes Anticipated discharge: Home Within: Other
[2020-05-03] MEDS ORDERED: ACETAMINOPHEN SOLN 325 MG/10.15 ML UDCUP PO PRN (14:35)
[2020-05-03] MEDS: RISPERIDONE 0.25 MG TABLET PO SCH (21:11)
[2020-05-04] MEDS: VANCOMYCIN HCL INJ 500 MG VIAL PO SCH ×4 (00:41→18:03)
[2020-05-04] MEDS: HEPARIN SOD (PORCINE) 5,000 UNIT/ML 1 ML VIAL SUBCUT SCH ×3 (05:52→21:28)
[2020-05-04] MEDS ORDERED: WATER FOR INJECTION,STERILE 10 ML SDV ONE (05:53)
[2020-05-04 06:19] LABS: HEMATOCRIT 26.5 % (37.9-51.0); MEAN CORPUSCULAR HEMOGLOBIN 29.4 pg (27.0-33.4); MEAN CORPUSCULAR HGB CONC 33.8 g/dL (32.0-36.0); MEAN CORPUSCULAR VOLUME 87 fl (80-97); PLATELET COUNT 206 10^3/uL (150-450); RED BLOOD COUNT 3.05 10^6/uL (4.35-5.55); RED CELL DISTRIBUTION WIDTH 14.5 % (11.5-14.0); WHITE BLOOD COUNT 10.7 10^3/uL (4.0-10.5)
[2020-05-04] MEDS: RINGERS SOLUTION,LACTATED 1,000 ML IV PRN ×2 (06:28→18:03)
[2020-05-04 06:57] LABS: BLOOD UREA NITROGEN 19 mg/dL (7-20); CALCIUM 7.8 mg/dL (8.4-10.2); CARBON DIOXIDE 26 mmol/L (22-30); CHLORIDE 106 mmol/L (98-107); GLUCOSE 119 mg/dL (75-110); POTASSIUM 3.6 mmol/L (3.6-5.0)
[2020-05-04 07:02] LABS: ANION GAP 1 (5-19)
[2020-05-04] MEDS ORDERED: MEMANTINE HCL 5 MG PO SCH (09:00)
[2020-05-04] MEDS: CYANOCOBALAMIN (VITAMIN B-12) 1,000 MCG TABLET PO SCH (09:36)
[2020-05-04] MEDS: FOLIC ACID 1 MG TABLET PO SCH (09:36)
[2020-05-04] MEDS: LACTOBACILLUS ACIDOPHILUS 250 MG TAB PO SCH ×2 (09:36→18:02)
[2020-05-04] MEDS: RISPERIDONE 0.25 MG TABLET PO SCH ×2 (09:36→21:28)
[2020-05-04] MEDS: AMLODIPINE BESYLATE 5 MG TABLET PO SCH (09:36)
[2020-05-04] MEDS: ASPIRIN 81 MG TABLET, ENT COATED PO SCH (09:36)
[2020-05-04] MEDS: MEMANTINE HCL 10 MG TABLET PO SCH (09:36)
--- NOTE | 2020-05-04 14:33 | PDOC PROGRESS REPORT ---
Subjective Progress Note for:: 05/04/20 Subjective:: The patient is an 80-year-old male with a past medical history significant for advanced dementia and hypertension who was recently discharged from our facility after treatment for urinary tract infection and readmitted 05/03/2020 with C. difficile diarrhea. Patient is seen on morning rounds. He is found resting in bed, comfortably, on room air. He is awake, alert, and orientated to self. Eating breakfast with assistance. He makes eye contact, but is not answer questions at the moment. Per nursing; increased interaction/coversation earlier this morning. Continues to have frequent watery stools. ROS is limited secondary to mental status and acute illness. He does appear to be comfortable and is not noted to be in any acute distress at this time. No concerns per nursing. Reason For Visit: SEPSIS, C. DIFFICILE COLITIS Physical Exam Vital Signs: Temp Pulse Resp BP Pulse Ox 97.7 F 79 14 139/62 H 96 05/04/20 07:42 05/04/20 07:42 05/04/20 07:42 05/04/20 07:42 05/04/20 07:42 Intake & Output 05/03/20 05/04/20 05/05/20 06:59 06:59 06:59 Intake Total 1999 2722 Balance 1999 2722 Weight 71.2 kg 73.2 kg 73.2 kg General appearance: PRESENT: no acute distress, thin, well-developed, other - Chronically ill-appearing Head exam: PRESENT: atraumatic, normocephalic Eye exam: PRESENT: conjunctiva pink, EOMI, PERRLA. ABSENT: scleral icterus Mouth exam: PRESENT: moist, tongue midline Respiratory exam: PRESENT: clear to auscultation maco, symmetrical, unlabored, other - Room air. ABSENT: rales, rhonchi, wheezes Cardiovascular exam: PRESENT: RRR. ABSENT: diastolic murmur, rubs, systolic murmur Pulses: PRESENT: normal dorsalis pedis pul Vascular exam: PRESENT: normal capillary refill GI/Abdominal exam: PRESENT: hyperactive bowel sounds, soft. ABSENT: distended, guarding, mass, organolmegaly, rebound, tenderness Rectal exam: PRESENT: deferred Extremities exam: PRESENT: full ROM. ABSENT: calf tenderness, clubbing, pedal edema Neurological exam: PRESENT: alert, awake, oriented to person, CN II-XII grossly intact, other - Near baseline mentation. ABSENT: motor sensory deficit Psychiatric exam: PRESENT: appropriate affect, normal mood. ABSENT: homicidal ideation, suicidal ideation Skin exam: PRESENT: dry, intact, warm. ABSENT: cyanosis, rash Results Laboratory Results: 05/04/20 06:00 05/04/20 06:00 05/04/20 05/04/20 06:00 06:00 WBC 10.7 H RBC 3.05 L Hgb 9.0 L Hct 26.5 L MCV 87 MCH 29.4 MCHC 33.8 RDW 14.5 H Plt Count 206 Sodium 133.4 L Potassium 3.6 Chloride 106 Carbon Dioxide 26 Anion Gap 1 L BUN 19 Creatinine 0.69 Est GFR ( Amer) > 60 Glucose 119 H Calcium 7.8 L Impressions: Chest X-Ray 05/02/20 23:27 IMPRESSION: No evidence of acute cardiopulmonary disease. Assessment and Plan - Diagnosis (1) Clostridium difficile colitis Is this a current diagnosis for this admission?: Yes Plan: Patient is admitted to the medical floor on continuous cardiac telemetry. He is provided gentle IV fluids. Continue p.o. vancomycin every 6 hours. Continue probiotic supplement twice a day. Monitor electrolytes and replace as needed. (2) Sepsis Qualifiers: Sepsis type: sepsis due to unspecified organism Sepsis acute organ dysfunction status: without acute organ dysfunction Qualified Code(s): A41.9 - Sepsis, unspecified organism Is this a current diagnosis for this admission?: Yes Plan: Improved; T-max 101.1 last 24 hours. Remaining vital signs stable. Leukocytosis is trending down. Now alert and near baseline mentation. Due to his C. difficile colitis. Treatment as previously noted (3) Hypertension Is this a current diagnosis for this admission?: Yes Plan: Home dose amlodipine. (4) Stage II decubitus ulcer Qualifiers: Pressure injury location: buttock Laterality: right Qualified Code(s): L89.312 - Pressure ulcer of right buttock, stage 2 Is this a current diagnosis for this admission?: Yes Plan: Present on arrival. Local wound care, turn every 2 hours, offloading measures (5) Chronic dementia without behavioral disturbance Is this a current diagnosis for this admission?: Yes Plan: Continue home medications and supportive care. Recommend Palliative care referral at discharged. - Time Time Spent with patient: 15-24 minutes Medications reviewed and adjusted accordingly: Yes Anticipated discharge: Home Within: within 72 hours
--- NOTE | 2020-05-04 21:14 | CDI QUERY ---
CDI Query CDI Review: Documentation in the Medical Record indicates this patient has: Per ED notes: This is a frail, contracted, chronically ill-appearing 80-year-old male Height: 5 ft 8 in Weight: 73.2 kg (161.04 lbs) (Calculated BMI: 24.5 ) Labs: Total Protein 5.5 Albumin 2.4 H/H 9.7 / 29.6 Based on your medical judgment, please further clarify in the Progress Notes the diagnosis associated with these findings: Severe malnutrition Moderate malnutrition Mild malnutrition Hypo-albuminemia Undernutrition Other condition (please specify) None of the above / Not applicable Thank you for your consideration. HAWK Estrada RN Clinical Project Specialist Physician Advisor [email or web address]
[2020-05-05] MEDS: VANCOMYCIN HCL INJ 500 MG VIAL PO SCH ×5 (00:05→23:36)
[2020-05-05] MEDS: HEPARIN SOD (PORCINE) 5,000 UNIT/ML 1 ML VIAL SUBCUT SCH ×3 (05:37→22:05)
[2020-05-05 06:14] LABS: HEMOGLOBIN 9.5 g/dL (13.5-17.0); MEAN CORPUSCULAR HEMOGLOBIN 29.3 pg (27.0-33.4); MEAN CORPUSCULAR HGB CONC 34.1 g/dL (32.0-36.0); MEAN CORPUSCULAR VOLUME 86 fl (80-97); PLATELET COUNT 204 10^3/uL (150-450); RED BLOOD COUNT 3.26 10^6/uL (4.35-5.55); RED CELL DISTRIBUTION WIDTH 14.1 % (11.5-14.0); WHITE BLOOD COUNT 9.4 10^3/uL (4.0-10.5)
[2020-05-05 06:37] LABS: BLOOD UREA NITROGEN 16 mg/dL (7-20); CALCIUM 7.6 mg/dL (8.4-10.2); CHLORIDE 102 mmol/L (98-107); GLUCOSE 113 mg/dL (75-110); POTASSIUM 3.8 mmol/L (3.6-5.0)
[2020-05-05 06:43] LABS: CARBON DIOXIDE 27 mmol/L (22-30)
[2020-05-05 06:44] LABS: ANION GAP 4 (5-19)
[2020-05-05] MEDS: AMLODIPINE BESYLATE 5 MG TABLET PO SCH (09:30)
[2020-05-05] MEDS: ASPIRIN 81 MG TABLET, ENT COATED PO SCH (09:30)
[2020-05-05] MEDS: LACTOBACILLUS ACIDOPHILUS 250 MG TAB PO SCH ×2 (09:30→17:37)
[2020-05-05] MEDS: FOLIC ACID 1 MG TABLET PO SCH (09:31)
[2020-05-05] MEDS: RISPERIDONE 0.25 MG TABLET PO SCH ×2 (09:31→22:00)
[2020-05-05] MEDS: MEMANTINE HCL 10 MG TABLET PO SCH (09:31)
[2020-05-05] MEDS: CYANOCOBALAMIN (VITAMIN B-12) 1,000 MCG TABLET PO SCH (09:31)
--- NOTE | 2020-05-05 13:26 | PDOC PROGRESS REPORT ---
Subjective Progress Note for:: 05/05/20 Subjective:: The patient is an 80-year-old male with a past medical history significant for advanced dementia and hypertension who was recently discharged from our facility after treatment for urinary tract infection and readmitted 05/03/2020 with C. difficile diarrhea. Patient is seen on morning rounds. He is found resting in bed, comfortably, on room air. He is awake, alert, and orientated to self. He makes eye contact and answers a few simple questions; when asked if he is feeling well he nods his head yes and asks how I am doing. He answers all other questions no. He does appear to be comfortable and is not noted to be in any acute distress. Per nursing, patient ate 50% of his breakfast; does continue to have frequent loose stools; 5 overnight. ROS is limited secondary to mental status and acute illness. No concerns per nursing. Reason For Visit: SEPSIS, C. DIFFICILE COLITIS Physical Exam Vital Signs: Temp Pulse Resp BP Pulse Ox 99.7 F 70 17 158/65 H 93 05/04/20 23:59 05/05/20 07:00 05/04/20 23:59 05/04/20 23:59 05/04/20 23:59 Intake & Output 05/04/20 05/05/20 05/06/20 06:59 06:59 06:59 Intake Total 2722 1726 Balance 2722 1726 Weight 73.2 kg 73 kg General appearance: PRESENT: no acute distress, cooperative, thin, well- developed, other - Chronically ill-appearing Head exam: PRESENT: atraumatic, normocephalic Eye exam: PRESENT: conjunctiva pink, EOMI, PERRLA. ABSENT: scleral icterus Mouth exam: PRESENT: moist, tongue midline Respiratory exam: PRESENT: clear to auscultation maco, symmetrical, unlabored. ABSENT: rales, rhonchi, wheezes Cardiovascular exam: PRESENT: RRR. ABSENT: diastolic murmur, rubs, systolic murmur Pulses: PRESENT: normal dorsalis pedis pul Vascular exam: PRESENT: normal capillary refill GI/Abdominal exam: PRESENT: normal bowel sounds, soft. ABSENT: distended, guarding, mass, organolmegaly, rebound, tenderness Rectal exam: PRESENT: deferred Extremities exam: ABSENT: calf tenderness, clubbing, pedal edema Neurological exam: PRESENT: alert, awake, CN II-XII grossly intact, other - Ba seline mentation. ABSENT: motor sensory deficit Psychiatric exam: PRESENT: appropriate affect, normal mood. ABSENT: homicidal ideation, suicidal ideation Skin exam: PRESENT: dry, warm. ABSENT: cyanosis, rash Results Laboratory Results: 05/05/20 05:49 05/05/20 05:49 05/05/20 05/05/20 05:49 05:49 WBC 9.4 RBC 3.26 L Hgb 9.5 L Hct 28.0 L MCV 86 MCH 29.3 MCHC 34.1 RDW 14.1 H Plt Count 204 Sodium 133.3 L Potassium 3.8 Chloride 102 Carbon Dioxide 27 Anion Gap 4 L BUN 16 Creatinine 0.73 Est GFR ( Amer) > 60 Glucose 113 H Calcium 7.6 L 05/02/20 23:14 Sacrum - Decubitis Ulcer Gram Stain - Final Impressions: Chest X-Ray 05/02/20 23:27 IMPRESSION: No evidence of acute cardiopulmonary disease. Assessment and Plan - Diagnosis (1) Clostridium difficile colitis Is this a current diagnosis for this admission?: Yes Plan: Patient is admitted to the medical floor on continuous cardiac telemetry. He is provided gentle IV fluids. Continue p.o. vancomycin every 6 hours. Continue probiotic supplement twice a day. Monitor electrolytes and replace as needed. (2) Sepsis Qualifiers: Sepsis type: sepsis due to unspecified organism Sepsis acute organ dysfunction status: without acute organ dysfunction Qualified Code(s): A41.9 - Sepsis, unspecified organism Is this a current diagnosis for this admission?: Yes Plan: Improved; T-max 99.7/48 hours, 101.1/48 hours. Remaining vital signs stable. Leukocytosis is trending down. Now alert and at baseline mentation. Due to his C. difficile colitis. Treatment as previously noted (3) Hypertension Is this a current diagnosis for this admission?: Yes Plan: Home dose amlodipine. (4) Stage II decubitus ulcer Qualifiers: Pressure injury location: buttock Laterality: right Qualified Code(s): L89.312 - Pressure ulcer of right buttock, stage 2 Is this a current diagnosis for this admission?: Yes Plan: Present on arrival. Local wound care, turn every 2 hours, offloading measures (5) Chronic dementia without behavioral disturbance Is this a current diagnosis for this admission?: Yes Plan: Continue home medications and supportive care. Recommend Palliative care referral at discharged. (6) Hypoalbuminemia due to protein-calorie malnutrition Is this a current diagnosis for this admission?: Yes Plan: In setting of advanced dementia with overall poor oral intake and need for ass istance with all meals. Assist with meals Supportive care. Patient's family discussing hospice admission upon return to [facility]. - Time Time Spent with patient: 25-34 minutes Medications reviewed and adjusted accordingly: Yes Anticipated discharge: Home Within: within 24 hours, Other - pending COVID r/o
[2020-05-05] MEDS: RINGERS SOLUTION,LACTATED 1,000 ML IV PRN (15:35)
[2020-05-06] MEDS: HEPARIN SOD (PORCINE) 5,000 UNIT/ML 1 ML VIAL SUBCUT SCH ×3 (06:17→21:47)
[2020-05-06] MEDS: VANCOMYCIN HCL INJ 500 MG VIAL PO SCH ×4 (06:17→23:49)
[2020-05-06 06:42] LABS: HEMATOCRIT 29.2 % (37.9-51.0); HEMOGLOBIN 9.9 g/dL (13.5-17.0); MEAN CORPUSCULAR HEMOGLOBIN 29.3 pg (27.0-33.4); MEAN CORPUSCULAR HGB CONC 33.9 g/dL (32.0-36.0); MEAN CORPUSCULAR VOLUME 86 fl (80-97); PLATELET COUNT 243 10^3/uL (150-450); RED BLOOD COUNT 3.39 10^6/uL (4.35-5.55); WHITE BLOOD COUNT 6.3 10^3/uL (4.0-10.5)
[2020-05-06 07:09] LABS: BLOOD UREA NITROGEN 12 mg/dL (7-20); CALCIUM 7.9 mg/dL (8.4-10.2); CARBON DIOXIDE 28 mmol/L (22-30); CHLORIDE 103 mmol/L (98-107); GLUCOSE 109 mg/dL (75-110); POTASSIUM 4.1 mmol/L (3.6-5.0)
[2020-05-06 07:17] LABS: ANION GAP 3 (5-19)
[2020-05-06] MEDS: FOLIC ACID 1 MG TABLET PO SCH (10:02)
[2020-05-06] MEDS: RISPERIDONE 0.25 MG TABLET PO SCH ×2 (10:02→21:47)
[2020-05-06] MEDS: LACTOBACILLUS ACIDOPHILUS 250 MG TAB PO SCH ×2 (10:02→17:38)
[2020-05-06] MEDS: CYANOCOBALAMIN (VITAMIN B-12) 1,000 MCG TABLET PO SCH (10:02)
[2020-05-06] MEDS: MEMANTINE HCL 10 MG TABLET PO SCH (10:03)
[2020-05-06] MEDS: ASPIRIN 81 MG TABLET, ENT COATED PO SCH (10:03)
[2020-05-06] MEDS: AMLODIPINE BESYLATE 5 MG TABLET PO SCH (10:03)
[2020-05-06] MEDS: RINGERS SOLUTION,LACTATED 1,000 ML IV PRN (13:15)
--- NOTE | 2020-05-06 22:13 | PDOC PROGRESS REPORT ---
Subjective Progress Note for:: 05/06/20 Reason For Visit: SEPSIS, C. DIFFICILE COLITIS Physical Exam Vital Signs: Temp Pulse Resp BP Pulse Ox 98.6 F 83 18 152/61 H 94 05/06/20 19:57 05/06/20 19:57 05/06/20 19:57 05/06/20 19:57 05/06/20 19:57 Intake & Output 05/05/20 05/06/20 05/07/20 06:59 06:59 06:59 Intake Total 1726 1050 2310 Balance 1726 1050 2310 Weight 73 kg 73 kg 67.4 kg General appearance: PRESENT: no acute distress, thin, other - [place] ill- appearing Head exam: PRESENT: atraumatic, normocephalic Eye exam: PRESENT: conjunctiva pink Mouth exam: PRESENT: moist, tongue midline Neck exam: ABSENT: JVD Respiratory exam: PRESENT: clear to auscultation maco, symmetrical, unlabored. ABSENT: accessory muscle use Cardiovascular exam: PRESENT: RRR, +S1, +S2 Pulses: PRESENT: normal radial pulses GI/Abdominal exam: PRESENT: normal bowel sounds, soft. ABSENT: distended, tenderness Rectal exam: PRESENT: deferred Extremities exam: ABSENT: calf tenderness, clubbing, pedal edema Neurological exam: PRESENT: alert, awake Psychiatric exam: ABSENT: agitated, anxious Skin exam: PRESENT: dry, warm Results Laboratory Results: 05/06/20 06:27 05/06/20 06:27 05/06/20 05/06/20 06:27 06:27 WBC 6.3 RBC 3.39 L Hgb 9.9 L Hct 29.2 L MCV 86 MCH 29.3 MCHC 33.9 RDW 14.0 Plt Count 243 Sodium 134.0 L Potassium 4.1 Chloride 103 Carbon Dioxide 28 Anion Gap 3 L BUN 12 Creatinine 0.64 Est GFR ( Amer) > 60 Glucose 109 Calcium 7.9 L Impressions: Chest X-Ray 05/02/20 23:27 IMPRESSION: No evidence of acute cardiopulmonary disease. Assessment and Plan - Diagnosis (1) Clostridium difficile colitis Is this a current diagnosis for this admission?: Yes Plan: Continue IV hydration Patient currently on vancomycin 250 mg p.o. every 6, will leave him on this dose at this time Continue lactobacillus 500 mg p.o. twice daily (2) Sepsis Qualifiers: Sepsis type: sepsis due to unspecified organism Sepsis acute organ dysfunction status: without acute organ dysfunction Qualified Code(s): A41.9 - Sepsis, unspecified organism Is this a current diagnosis for this admission?: Yes Plan: Patient currently afebrile Hemodynamically stable Leukocytosis resolved Continue to monitor (3) Hypertension Is this a current diagnosis for this admission?: Yes Plan: BP slightly elevated Continue amlodipine 5 mg p.o. daily, titrate as needed (4) Stage II decubitus ulcer Qualifiers: Pressure injury location: buttock Laterality: right Qualified Code(s): L89.312 - Pressure ulcer of right buttock, stage 2 Is this a current diagnosis for this admission?: Yes Plan: Present on arrival. Continue local wound care Turn every 2 hours with offloading measures (5) Chronic dementia without behavioral disturbance Is this a current diagnosis for this admission?: Yes Plan: Would benefit from outpatient palliative care consultation Continue memantine 5 mg p.o. daily Continue risperidone 0.25 mg p.o. twice daily (6) Hypoalbuminemia due to protein-calorie malnutrition Is this a current diagnosis for this admission?: Yes Plan: In setting of advanced dementia with overall poor oral intake and need for assistance with all meals. Continue to assist with feeding Ongoing supportive care Patient's family is considering transition to hospice care once returned to [facility] - Time Time Spent with patient: 25-34 minutes Medications reviewed and adjusted accordingly: Yes Anticipated discharge: SNF Within: Other
[2020-05-07] MEDS: HEPARIN SOD (PORCINE) 5,000 UNIT/ML 1 ML VIAL SUBCUT SCH (06:01)
[2020-05-07] MEDS: VANCOMYCIN HCL INJ 500 MG VIAL PO SCH ×2 (06:01→11:56)
[2020-05-07 08:08] LABS: ABSOLUTE BASOPHILS # (AUTO) 0.1 10^3/uL (0.0-0.2); ABSOLUTE EOSINOPHILS # (AUTO) 0.3 10^3/uL (0.0-0.6); ABSOLUTE LYMPHOCYTES (AUTO) 0.7 10^3/uL (0.5-4.7); ABSOLUTE MONOCYTES (AUTO) 0.6 10^3/uL (0.1-1.4); ABSOLUTE NEUT (AUTO) 5.2 10^3/uL (1.7-8.2); EOSINOPHILS % (AUTO) 4.3 % (0-6); HEMATOCRIT 31.7 % (37.9-51.0); HEMOGLOBIN 10.4 g/dL (13.5-17.0); LYMPHOCYTES % (AUTO) 10.7 % (13-45); MEAN CORPUSCULAR HEMOGLOBIN 28.7 pg (27.0-33.4); MEAN CORPUSCULAR HGB CONC 32.9 g/dL (32.0-36.0); MEAN CORPUSCULAR VOLUME 87 fl (80-97); MONOCYTES % (AUTO) 8.7 % (3-13); PLATELET COUNT 252 10^3/uL (150-450); RED BLOOD COUNT 3.65 10^6/uL (4.35-5.55); SEGMENTED NEUTROPHILS % (AUTO) 75.3 % (42-78); TOTAL CELLS COUNTED % (AUTO) 100 %
[2020-05-07 08:27] LABS: BLOOD UREA NITROGEN 11 mg/dL (7-20); CALCIUM 8.4 mg/dL (8.4-10.2); CARBON DIOXIDE 30 mmol/L (22-30); CHLORIDE 102 mmol/L (98-107); GLUCOSE 119 mg/dL (75-110)
[2020-05-07 08:33] LABS: ANION GAP 5 (5-19)
[2020-05-07] MEDS: FOLIC ACID 1 MG TABLET PO SCH (09:32)
[2020-05-07] MEDS: MEMANTINE HCL 10 MG TABLET PO SCH (09:32)
[2020-05-07] MEDS: CYANOCOBALAMIN (VITAMIN B-12) 1,000 MCG TABLET PO SCH (09:32)
[2020-05-07] MEDS: RISPERIDONE 0.25 MG TABLET PO SCH (09:32)
[2020-05-07] MEDS: LACTOBACILLUS ACIDOPHILUS 250 MG TAB PO SCH (09:32)
[2020-05-07] MEDS: AMLODIPINE BESYLATE 5 MG TABLET PO SCH (09:32)
[2020-05-07] MEDS: ASPIRIN 81 MG TABLET, ENT COATED PO SCH (09:32)
[2020-05-07] MEDS: RINGERS SOLUTION,LACTATED 1,000 ML IV PRN (09:37)
--- NOTE | 2020-05-07 10:28 | PDOC DISCHARGE SUMMARY ---
Impression - Admit/DC Date/PCP Admission Date/Primary Care Provider: 05/03/20 03:05 BILLY SALVADOR MD Discharge Date: 05/07/20 - Discharge Diagnosis (1) Clostridium difficile colitis Is this a current diagnosis for this admission?: Yes (2) Sepsis Is this a current diagnosis for this admission?: Yes (3) Hypertension Is this a current diagnosis for this admission?: Yes (4) Stage II decubitus ulcer Is this a current diagnosis for this admission?: Yes (5) Chronic dementia without behavioral disturbance Is this a current diagnosis for this admission?: Yes (6) Hypoalbuminemia due to protein-calorie malnutrition Is this a current diagnosis for this admission?: Yes - Additional Information Resuscitation Status: Full Code Discharge Diet: As Tolerated Discharge Activity: Activity As Tolerated Referrals: Amparo John [Outside] BILLY SALVADOR MD [Primary Care Provider] - Follow up as needed Prescriptions: Lactobacillus Acidophilus [Bacid 250 mg Tablet] 500 mg PO BID #14 tab Vancomycin HCl [Vancocin Inj 500 mg Vial] 250 mg PO Q6 7 Days vial Home Medications: Folic Acid 1 mg PO DAILY@89911/06/19 Memantine HCl 5 mg PO DAILY@89911/06/19 Azelastine HCl 1 spray NASL BID@09,209912/21/19 Aspirin [Ecotrin 81 mg EC Tablet] 81 mg PO DAILY@89904/18/20 Melatonin [Melatonin 3 mg Tablet] 3 mg PO HSP PRN 04/18/20 Risperidone [Risperdal 0.25 mg Tablet] 0.25 mg PO BID@0900,209904/18/20 Amlodipine Besylate [Norvasc 5 mg Tablet] 5 mg PO DAILY #30 tablet 04/20/20 Acetaminophen [Tylenol 325 mg Tablet] 650 mg PO Q4HP PRN 05/03/20 Cyanocobalamin (Vitamin B-12) [Vitamin B-12] 1,000 mcg PO DAILY@89905/03/20 Ergocalciferol (Vitamin D2) [Drisdol 50,000 unit (1.25MG) Capsule] 50,000 unit PO SA@89905/03/20 Lactobacillus Acidophilus [Bacid 250 mg Tablet] 500 mg PO BID #14 tab 05/07/20 Vancomycin HCl [Vancocin Inj 500 mg Vial] 250 mg PO Q6 7 Days vial 05/07/20 History of Present Illiness History of Present Illness: LESLY GUNTER is a 80 year old male with PMH significant for profound dementia who resides in [facility]. He presented to the ED with reports of fever for several days and apparent diarrhea. C. difficile toxin was sent which was positive and the patient was started on appropriate antibiotics. Hospital Course Hospital Course: (1) Clostridium difficile colitis Is this a current diagnosis for this admission?: Yes Plan: Continue IV hydration Patient currently on vancomycin 250 mg p.o. every 6, will leave him on this dose at this time Continue lactobacillus 500 mg p.o. twice daily (2) Sepsis Qualifiers: Sepsis type: sepsis due to unspecified organism Sepsis acute organ dysfunction status: without acute organ dysfunction Qualified Code(s): A41.9 - Sepsis, unspecified organism Is this a current diagnosis for this admission?: Yes Plan: Patient currently afebrile Hemodynamically stable Leukocytosis resolved Continue to monitor (3) Hypertension Is this a current diagnosis for this admission?: Yes Plan: BP slightly elevated Continue amlodipine 5 mg p.o. daily, titrate as needed (4) Stage II decubitus ulcer Qualifiers: Pressure injury location: buttock Laterality: right Qualified Code(s): L89.312 - Pressure ulcer of right buttock, stage 2 Is this a current diagnosis for this admission?: Yes Plan: Present on arrival. Continue local wound care Turn every 2 hours with offloading measures (5) Chronic dementia without behavioral disturbance Is this a current diagnosis for this admission?: Yes Plan: Would benefit from outpatient palliative care consultation Continue memantine 5 mg p.o. daily Continue risperidone 0.25 mg p.o. twice daily (6) Hypoalbuminemia due to protein-calorie malnutrition Is this a current diagnosis for this admission?: Yes Plan: In setting of advanced dementia with overall poor oral intake and need for as sistance with all meals. Continue to assist with feeding Ongoing supportive care Patient's family is considering transition to hospice care once returned to [facility] Patient was admitted and oral vancomycin therapy was initiated. Over subsequent days the patient became afebrile and his diarrhea improved. By the time of discharge the patient was having only 1 BM daily and his stools were becoming more formed Physical Exam Vital Signs: Temp Pulse Resp BP Pulse Ox 98.1 F 62 17 128/68 H 95 05/06/20 23:11 05/07/20 07:00 05/06/20 23:11 05/06/20 23:11 05/06/20 23:11 Intake & Output 05/06/20 05/07/20 05/08/20 06:59 06:59 06:59 Intake Total 1050 2410 1000 Balance 1050 2410 1000 Weight 73 kg 67.8 kg General appearance: PRESENT: no acute distress, cooperative, other - Chronically ill appearing Head exam: PRESENT: atraumatic, normocephalic Eye exam: PRESENT: conjunctiva pink Neck exam: ABSENT: JVD Respiratory exam: PRESENT: clear to auscultation maco, decreased breath sounds - Air entry initially at bases bilaterally, symmetrical, unlabored. ABSENT: accessory muscle use, rales, rhonchi, wheezes Cardiovascular exam: PRESENT: RRR, +S1, +S2 Vascular exam: PRESENT: normal capillary refill GI/Abdominal exam: PRESENT: normal bowel sounds, soft. ABSENT: distended, rigid, tenderness Rectal exam: PRESENT: deferred Extremities exam: ABSENT: pedal edema Musculoskeletal exam: PRESENT: other - Lying in bed Neurological exam: PRESENT: alert, awake, other - Patient offers no verbal response but nods head to questions Psychiatric exam: PRESENT: other - Severe dementia. ABSENT: agitated, anxious Skin exam: PRESENT: dry, normal color, warm Results Laboratory Results: WBC 7.0 10^3/uL (4.0-10.5) 05/07/20 07:41 RBC 3.65 10^6/uL (4.35-5.55) L 05/07/20 07:41 Hgb 10.4 g/dL (13.5-17.0) L 05/07/20 07:41 Hct 31.7 % (37.9-51.0) L 05/07/20 07:41 MCV 87 fl (80-97) 05/07/20 07:41 MCH 28.7 pg (27.0-33.4) 05/07/20 07:41 MCHC 32.9 g/dL (32.0-36.0) 05/07/20 07:41 RDW 14.0 % (11.5-14.0) 05/07/20 07:41 Plt Count 252 10^3/uL (150-450) 05/07/20 07:41 Lymph % (Auto) 10.7 % (13-45) L 05/07/20 07:41 [place] % (Auto) 8.7 % (3-13) 05/07/20 07:41 Eos % (Auto) 4.3 % (0-6) 05/07/20 07:41 Baso % (Auto) 1.0 % (0-2) 05/07/20 07:41 Absolute Neuts (auto) 5.2 10^3/uL (1.7-8.2) 05/07/20 07:41 Absolute Lymphs (auto) 0.7 10^3/uL (0.5-4.7) 05/07/20 07:41 Absolute Monos (auto) 0.6 10^3/uL (0.1-1.4) 05/07/20 07:41 Absolute Eos (auto) 0.3 10^3/uL (0.0-0.6) 05/07/20 07:41 Absolute Basos (auto) 0.1 10^3/uL (0.0-0.2) 05/07/20 07:41 Total Counted 100 05/02/20 22:15 Seg Neutrophils % 75.3 % (42-78) 05/07/20 07:41 Seg Neuts % (Manual) 94 % (42-78) H 05/02/20 22:15 Lymphocytes % (Manual) 2 % (13-45) L 05/02/20 22:15 Monocytes % (Manual) 3 % (3-13) 05/02/20 22:15 Eosinophils % (Manual) 1 % (0-6) 05/02/20 22:15 Basophils % (Manual) 0 % (0-2) 05/02/20 22:15 Abs Neuts (Manual) 13.3 10^3/uL (1.7-8.2) H 05/02/20 22:15 Abs Lymphs (Manual) 0.3 10^3/uL (0.5-4.7) L 05/02/20 22:15 Abs Monocytes (Manual) 0.4 10^3/uL (0.1-1.4) 05/02/20 22:15 Absolute Eos (Manual) 0.1 10^3/uL (0.0-0.6) 05/02/20 22:15 Abs Basophils (Manual) 0.0 10^3/uL (0.0-0.2) 05/02/20 22:15 Platelet Comment ADEQUATE 05/02/20 22:15 Anisocytosis SLIGHT 05/02/20 22:15 PT 15.1 SEC (11.4-15.4) 05/02/20 22:15 INR 1.18 05/02/20 22:15 VBG pH 7.39 (7.30-7.42) 05/02/20 22:15 VBG pCO2 45.5 mmHg (35-63) 05/02/20 22:15 VBG HCO3 26.6 mmol/L (20-32) 05/02/20 22:15 VBG Base Excess 1.2 mmol/L 05/02/20 22:15 Sodium 136.6 mmol/L (137-145) L 05/07/20 07:41 Potassium 5.0 mmol/L (3.6-5.0) 05/07/20 07:41 Chloride 102 mmol/L (98-107) 05/07/20 07:41 Carbon Dioxide 30 mmol/L (22-30) 05/07/20 07:41 Anion Gap 5 (5-19) 05/07/20 07:41 BUN 11 mg/dL (7-20) 05/07/20 07:41 Creatinine 0.76 mg/dL (0.52-1.25) 05/07/20 07:41 Est GFR ( Amer) > 60 (>60) 05/07/20 07:41 Est GFR (MDRD) Non-Af > 60 (>60) 05/07/20 07:41 Glucose 119 mg/dL (75-110) H 05/07/20 07:41 Lactic Acid 1.2 mmol/L (0.7-2.1) 05/02/20 22:15 Calcium 8.4 mg/dL (8.4-10.2) 05/07/20 07:41 Total Bilirubin 0.5 mg/dL (0.2-1.3) 05/02/20 22:15 Direct Bilirubin 0.0 mg/dL (0.0-0.4) 05/02/20 22:15 Neonat Total Bilirubin Not Reportable 05/02/20 22:15 Neonat Direct Bilirubin Not Reportable 05/02/20 22:15 Neonat Indirect Bili Not Reportable 05/02/20 22:15 AST 22 U/L (17-59) 05/02/20 22:15 ALT 13 U/L (<50) 05/02/20 22:15 Alkaline Phosphatase 51 U/L (38-126) 05/02/20 22:15 Total Protein 5.5 g/dL (6.3-8.2) L 05/02/20 22:15 Albumin 2.4 g/dL (3.5-5.0) L 05/02/20 22:15 Urine Color YELLOW 05/02/20 23:14 Urine Appearance SLIGHTLY-CLOUDY 05/02/20 23:14 Urine pH 5.0 (5.0-9.0) 05/02/20 23:14 Ur Specific [place] 1.021 05/02/20 23:14 Urine Protein 30 mg/dL (NEGATIVE) H 05/02/20 23:14 Urine Glucose (UA) NEGATIVE mg/dL (NEGATIVE) 05/02/20 23:14 Urine Ketones NEGATIVE mg/dL (NEGATIVE) 05/02/20 23:14 Urine Blood SMALL (NEGATIVE) H 05/02/20 23:14 Urine Nitrite (Reflex) NEGATIVE (NEGATIVE) 05/02/20 23:14 Urine Bilirubin NEGATIVE (NEGATIVE) 05/02/20 23:14 Urine Urobilinogen NEGATIVE mg/dL (<2.0) 05/02/20 23:14 Leukocyte Esterase Rfl NEGATIVE (NEGATIVE) 05/02/20 23:14 Urine RBC (Auto) 1 /HPF 05/02/20 23:14 Urine WBC (Reflex) 4 /HPF 05/02/20 23:14 Squamous Epi Cells Auto 4 /HPF 05/02/20 23:14 Urine Mucus (Auto) RARE /LPF 05/02/20 23:14 Urine Ascorbic Acid NEGATIVE (NEGATIVE) 05/02/20 23:14 Stl C. Difficile GDH Ag NEGATIVE (NEGATIVE) 05/02/20 23:38 Stl C.difficile Tox A&B POSITIVE (NEGATIVE) 05/02/20 23:38 Stl C.difficile Tox PCR POSITIVE (NEGATIVE) 05/02/20 23:38 COVID-19 Source NASOPHARYNGEAL 05/04/20 16:00 COVID-19 (MELISA) NOT DETECTED 05/04/20 16:00 Impressions: Chest X-Ray 05/02/20 23:27 IMPRESSION: No evidence of acute cardiopulmonary disease. Plan Health Concerns: She was admitted for C. difficile colitis. He will need to be monitored for response to therapy. If he develops worsening diarrhea, fevers, or further altered mental status this would indicate treatment failure and the patient should be reevaluated. Patient also has a sacral pressure injury which was present on admission. He will need to have this cleansed with normal saline, a barrier cream applied, and a foam dressing placed twice daily and as needed when soiled Plan of Treatment: Continue vancomycin 250 mg p.o. every 6 hours and lactobacillus 500 mg p.o. twice daily for additional 7 days which will be a total of 10 days treatment Goals: Return to baseline Time Spent: Greater than 30 Minutes Stroke Is this a Stroke Patient?: No Acute Heart Failure - Is this a Heart Failure Patient?: No
[2020-05-07 12:17] VITALS: BP 143/69
[2020-05-09] MEDS ORDERED: ERGOCALCIFEROL (VITAMIN D2) 50000 UNIT (1.25 MG) CAPSULE PO SCH (09:00)
== END 2020-05-07 13:20 | DRG 872 ==
LOC: ER 21:38 → EH 05-03 03:05 → 4S 05-03 04:00
PROVIDERS: ADMIT Family Medicine; ATTEND Nurse Practitioner
DX: A41.9 Sepsis, unspecified organism (principal); A04.72 Enterocolitis due to Clostridium difficile, not specified as recurrent; E46 Unspecified protein-calorie malnutrition; I10 Essential (primary) hypertension; E88.09 Other disorders of plasma-protein metabolism, not elsewhere classified; Z79.84 Long term (current) use of oral hypoglycemic drugs; Z79.899 Other long term (current) drug therapy; L89.312 Pressure ulcer of right buttock, stage 2; F03.90 Unspecified dementia, unspecified severity, without behavioral disturbance, psychotic disturbance, mood disturbance, and anxiety
CPT/HCPCS: 36415; 71045; 80048; 80053; 81001; 82803; 83605; 85025; 85027; 85610; 87040; 87070; 87075; 87077; 87186; 87205; 87324; 87449; 87493; 87635; 93005; 93010; 96360; 99285; C9803; J1644; J3370; J3490; J7030; J7120